=== PATIENT | male | born 1945 | race Caucasian/White ===

== ENCOUNTER 2020-02-28 08:25 | Outpatient (CLI) | payer MEDICARE, OTHER, SELFPAY ==
[2020-02-28 08:43] LABS: Basophils Percent Auto 0.6 % (0.2-1.2); Eosinophils Absolute Auto 0.4 K/mm3 (0-0.3); Eosinophils Percent Auto 6.2 % (0-4.4); Hematocrit 41.3 % (42.0-52.0); Hemoglobin 13.7 g/dL (14.0-18.0); Immature Granulocyte Absolute 0.01 K/mm3 (0.00-0.031); Immature Granulocyte Percent A 0.2 % (0-0.5); Lymphocytes Absolute Auto 1.12 K/mm3 (0.9-3.2); Lymphocytes Percent Auto 18.2 % (18.3-44.2); Mean Corpuscular HGB Conc 33.2 g/dl (32-36); Mean Corpuscular Hemoglobin 31.6 pg (26-34); Mean Corpuscular Volume 95.4 fl (80-100); Mean Platelet Volume 9.7 fl (7.4-10.4); Monocytes Absolute Auto 0.6 K/mm3 (0.1-0.6); Monocytes Percent Auto 10.4 % (2.6-8.5); Neutrophils Percent Auto 64.4 % (45.5-73.1); Platelet Count Result 187 k/mm3 (150-375); Red Blood Count 4.33 M/mm3 (4.6-6.20); White Blood Count 6.2 K/mm3 (4.5-10.0)
[2020-02-28 08:52] LABS: Alanine Aminotransferase 20 U/L (4-50); Albumin Level 4.1 g/dL (3.5-5.1); Alkaline Phosphatase 53 U/L (38-126); Aspartate Amino Transferase 24 U/L (17-59); Bilirubin,Total 0.5 mg/dL (0.2-1.3); Blood Urea Nitrogen 21 mg/dL (9-20); Calcium 8.9 mg/dL (8.4-10.2); Carbon Dioxide 29 mmol/L (22-30); Chloride 104 mmol/L (98-107); Cholesterol 96 mg/dL (0-200); Estimated Glomerular Filt Rate 54; Glucose 140 mg/dL (75-110); HDL Direct 33 mg/dL; Potassium 4.6 mmol/L (3.4-5.0); Sodium 139 mmol/L (137-145); Triglycerides 66 mg/dL (<150)
[2020-02-28 08:58] LABS: Hemoglobin A1C 6.6 % (<5.7)
[2020-02-28 09:03] LABS: LDL Cholesterol Direct 50 mg/dL
== END 2020-02-28 08:26 | disposition home or self-care (01) ==
PROVIDERS: PCP Internal Medicine; Visit Provider Internal Medicine
DX: E11.9 Type 2 diabetes mellitus without complications (principal); E03.9 Hypothyroidism, unspecified
CPT/HCPCS: 36415; 80053; 80061; 83036; 84443; 85025

== ENCOUNTER 2020-09-17 09:33 | Outpatient (CLI) | payer MEDICARE, OTHER, SELFPAY ==
[2020-09-17 10:17] LABS: Basophils Percent Auto 0.5 % (0.2-1.2); Eosinophils Absolute Auto 0.2 K/mm3 (0-0.3); Eosinophils Percent Auto 3.4 % (0-4.4); Hematocrit 38.2 % (42.0-52.0); Hemoglobin 12.7 g/dL (14.0-18.0); Immature Granulocyte Absolute 0.04 K/mm3 (0.00-0.031); Immature Granulocyte Percent A 0.7 % (0-0.5); Lymphocytes Absolute Auto 1.18 K/mm3 (0.9-3.2); Lymphocytes Percent Auto 20.3 % (18.3-44.2); Mean Corpuscular HGB Conc 33.2 g/dl (32-36); Mean Corpuscular Hemoglobin 31.3 pg (26-34); Mean Corpuscular Volume 94.1 fl (80-100); Mean Platelet Volume 9.4 fl (7.4-10.4); Monocytes Percent Auto 17.4 % (2.6-8.5); Neutrophils Absolute Auto 3.4 K/mm3 (1.3-6.7); Neutrophils Percent Auto 57.7 % (45.5-73.1); Platelet Count Result 234 k/mm3 (150-375); Red Blood Count 4.06 M/mm3 (4.6-6.20); Red Cell Distribution Width 12.5 % (11.5-14.5); White Blood Count 5.8 K/mm3 (4.5-10.0)
[2020-09-17 10:33] LABS: Anion Gap 0 mmol/L (8-16); Blood Urea Nitrogen 19 mg/dL (9-20); Calcium 8.7 mg/dL (8.4-10.2); Carbon Dioxide 33 mmol/L (22-30); Chloride 106 mmol/L (98-107); Cholesterol 86 mg/dL (0-200); Estimated Glomerular Filt Rate 59; Glucose 123 mg/dL (75-110); HDL Direct 26 mg/dL; Potassium 4.8 mmol/L (3.4-5.0); Sodium 139 mmol/L (137-145); Triglycerides 78 mg/dL (<150)
[2020-09-17 10:44] LABS: LDL Cholesterol Direct 40 mg/dL
[2020-09-17 10:48] LABS: Creatinine Urine 216.6 mg/dL
[2020-09-17 10:49] LABS: Hemoglobin A1C 6.4 % (<5.7)
[2020-09-17 10:51] LABS: MALB Creatinine Ratio 2.8 mg/g (0-30); Microalbumin Urine Random 6.1 mg/L (0-16.7)
== END 2020-09-17 09:34 | disposition home or self-care (01) ==
PROVIDERS: PCP Internal Medicine; Visit Provider Internal Medicine
DX: E11.9 Type 2 diabetes mellitus without complications (principal); I25.10 Atherosclerotic heart disease of native coronary artery without angina pectoris
CPT/HCPCS: 36415; 80048; 80061; 82043; 83036; 85025

== ENCOUNTER 2020-09-20 11:27 | Outpatient (CLI) | payer MEDICARE, OTHER, SELFPAY ==
[2020-09-20 11:42] LABS: Basophils Percent Auto 0.6 % (0.2-1.2); Eosinophils Absolute Auto 0.2 K/mm3 (0-0.3); Eosinophils Percent Auto 4.6 % (0-4.4); Hematocrit 40.1 % (42.0-52.0); Hemoglobin 13.2 g/dL (14.0-18.0); Immature Granulocyte Absolute 0.01 K/mm3 (0.00-0.031); Immature Granulocyte Percent A 0.2 % (0-0.5); Immature Reticulocyte Fraction 17.6 % (3.0-15.9); Lymphocytes Absolute Auto 1.35 K/mm3 (0.9-3.2); Mean Corpuscular HGB Conc 32.9 g/dl (32-36); Mean Corpuscular Volume 97.1 fl (80-100); Mean Platelet Volume 9.5 fl (7.4-10.4); Monocytes Absolute Auto 0.7 K/mm3 (0.1-0.6); Monocytes Percent Auto 13.4 % (2.6-8.5); Neutrophils Absolute Auto 2.7 K/mm3 (1.3-6.7); Neutrophils Percent Auto 54.2 % (45.5-73.1); Platelet Count Result 177 k/mm3 (150-375); Red Blood Count 4.13 M/mm3 (4.6-6.20); Reticulocyte Hemoglobin Conten 37.1 pg (28.2-35.7); Reticulocyte Percent 1.33 % (0.7-4.3); Reticulocytes Absolute 0.05 B/L (32.2-175.7)
[2020-09-20 12:23] LABS: Thyroid Stimulating Hormone 0.595 uIU/mL (0.465-4.680)
[2020-09-20 12:58] LABS: Folic Acid 12.7 ng/mL (2.76->20)
== END 2020-09-20 11:28 | disposition home or self-care (01) ==
LOC: ANHLAB 11:29
PROVIDERS: Family Provider Internal Medicine; PCP Internal Medicine; Visit Provider Internal Medicine
DX: D64.9 Anemia, unspecified (principal); E03.9 Hypothyroidism, unspecified
CPT/HCPCS: 36415; 82607; 82728; 82746; 84443; 85025; 85046

== ENCOUNTER 2021-03-17 08:25 | Outpatient (CLI) | payer MEDICARE, OTHER, SELFPAY ==
[2021-03-17 12:06] LABS: Hemoglobin A1C 6.5 % (<5.7)
== END 2021-03-17 08:26 | disposition home or self-care (01) ==
LOC: ANHLAB 08:27
PROVIDERS: PCP Internal Medicine; Visit Provider Internal Medicine
DX: E11.9 Type 2 diabetes mellitus without complications (principal)
CPT/HCPCS: 36415; 83036

== ENCOUNTER 2021-04-02 15:52 | Outpatient (CLI) | payer MEDICARE, OTHER, SELFPAY ==
[2021-04-02 16:14] LABS: Basophils Percent Auto 0.4 % (0.2-1.2); Eosinophils Absolute Auto 0.4 K/mm3 (0-0.3); Eosinophils Percent Auto 5.6 % (0-4.4); Hemoglobin 13.6 g/dL (14.0-18.0); Immature Granulocyte Absolute 0.01 K/mm3 (0.00-0.031); Immature Granulocyte Percent A 0.1 % (0-0.5); Lymphocytes Absolute Auto 1.69 K/mm3 (0.9-3.2); Lymphocytes Percent Auto 22.7 % (18.3-44.2); Mean Corpuscular HGB Conc 33.2 g/dl (32-36); Mean Corpuscular Volume 93.4 fl (80-100); Mean Platelet Volume 9.5 fl (7.4-10.4); Monocytes Absolute Auto 0.9 K/mm3 (0.1-0.6); Monocytes Percent Auto 12.5 % (2.6-8.5); Neutrophils Absolute Auto 4.4 K/mm3 (1.3-6.7); Neutrophils Percent Auto 58.7 % (45.5-73.1); Platelet Count Result 187 k/mm3 (150-375); Red Blood Count 4.39 M/mm3 (4.6-6.20); Red Cell Distribution Width 13.2 % (11.5-14.5); White Blood Count 7.5 K/mm3 (4.5-10.0)
[2021-04-02 16:23] LABS: Anion Gap 7 mmol/L (8-16); Blood Urea Nitrogen 24 mg/dL (9-20); Calcium 9.3 mg/dL (8.4-10.2); Carbon Dioxide 28 mmol/L (22-30); Chloride 106 mmol/L (98-107); Estimated Glomerular Filt Rate 54; Glucose 81 mg/dL (65-110); Potassium 4.7 mmol/L (3.4-5.0); Sodium 141 mmol/L (137-145)
[2021-04-02 16:55] LABS: Prostate Specific Antigen 2.4 ng/mL (< OR = 4.0)
== END 2021-04-02 15:53 | disposition home or self-care (01) ==
LOC: ANHLAB 15:56
PROVIDERS: PCP Internal Medicine; Visit Provider Internal Medicine
DX: D64.9 Anemia, unspecified (principal); Z12.5 Encounter for screening for malignant neoplasm of prostate; E03.9 Hypothyroidism, unspecified
CPT/HCPCS: 36415; 80048; 84153; 84443; 85025; G0103

== ENCOUNTER → 2021-04-22 08:23 | Outpatient (CLI) | payer MEDICARE, OTHER, SELFPAY ==
[2021-04-22 19:41] LABS: SARS-CoV-2 RNA PCR Negative
== END ==
PROVIDERS: PCP Internal Medicine; Visit Provider Clinical Nurse Specialist
DX: R05 Cough (principal); Z20.822 Contact with and (suspected) exposure to COVID-19
CPT/HCPCS: C9803; U0003; U0005

== ENCOUNTER 2021-09-19 08:18 | Outpatient (CLI) | payer MEDICARE, OTHER, SELFPAY ==
[2021-09-19 09:22] LABS: Basophils Absolute Auto 0.1 K/mm3 (0.0-0.1); Basophils Percent Auto 0.7 % (0.2-1.2); Eosinophils Absolute Auto 0.4 K/mm3 (0-0.3); Eosinophils Percent Auto 5.2 % (0-4.4); Hematocrit 42.3 % (42.0-52.0); Immature Granulocyte Absolute 0.01 K/mm3 (0.00-0.031); Immature Granulocyte Percent A 0.1 % (0-0.5); Lymphocytes Absolute Auto 1.34 K/mm3 (0.9-3.2); Lymphocytes Percent Auto 18.3 % (18.3-44.2); Mean Corpuscular HGB Conc 33.1 g/dl (32-36); Mean Corpuscular Hemoglobin 31.7 pg (26-34); Mean Corpuscular Volume 95.9 fl (80-100); Mean Platelet Volume 9.8 fl (7.4-10.4); Monocytes Absolute Auto 0.8 K/mm3 (0.1-0.6); Monocytes Percent Auto 10.9 % (2.6-8.5); Neutrophils Absolute Auto 4.7 K/mm3 (1.3-6.7); Neutrophils Percent Auto 64.8 % (45.5-73.1); Platelet Count Result 179 k/mm3 (150-375); Red Blood Count 4.41 M/mm3 (4.6-6.20); Red Cell Distribution Width 12.9 % (11.5-14.5); White Blood Count 7.3 K/mm3 (4.5-10.0)
[2021-09-19 09:34] LABS: Alanine Aminotransferase 16 U/L (4-50); Alkaline Phosphatase 52 U/L (38-126); Anion Gap 7 mmol/L (8-16); Aspartate Amino Transferase 23 U/L (17-59); Bilirubin,Total 0.6 mg/dL (0.2-1.3); Blood Urea Nitrogen 25 mg/dL (9-20); Carbon Dioxide 28 mmol/L (22-30); Chloride 106 mmol/L (98-107); Cholesterol 105 mg/dL (0-200); Estimated Glomerular Filt Rate 49; Glucose 112 mg/dL (65-110); HDL Direct 37 mg/dL; Potassium 4.9 mmol/L (3.4-5.0); Sodium 141 mmol/L (137-145); Triglycerides 63 mg/dL (<150)
[2021-09-19 09:39] LABS: Hemoglobin A1C 6.6 % (<5.7)
[2021-09-19 09:45] LABS: LDL Cholesterol Direct 51 mg/dL
== END 2021-09-19 08:19 | disposition home or self-care (01) ==
PROVIDERS: PCP Internal Medicine; Visit Provider Internal Medicine
DX: I10 Essential (primary) hypertension (principal); E03.9 Hypothyroidism, unspecified; E78.5 Hyperlipidemia, unspecified; E11.9 Type 2 diabetes mellitus without complications
CPT/HCPCS: 36415; 80053; 80061; 83036; 84443; 85025

== ENCOUNTER 2021-12-16 08:15 | Outpatient (CLI) | payer MEDICARE, OTHER, SELFPAY ==
[2021-12-16 08:39] LABS: Appearance Urine Clear (Clear); Bilirubin Urine Negative (Negative); Color Urine Yellow (Yellow); Glucose Urine UA Negative (Negative); Ketones Urine Negative (Negative); Leukocyte Esterase Ur Negative LEU/UL (NEGATIVE); Nitrate Urine Negative (Negative); Protein Urine Negative (Negative); Urobilinogen Urine 0.2 mg/dL (<2.0)
[2021-12-16 08:44] LABS: Hemoglobin A1C 6.4 % (<5.7)
[2021-12-16 08:45] LABS: Add Urine Microscopic? YES; Blood Urine Trace-Intact (Negative)
[2021-12-16 08:51] LABS: Mucus Urine Rare /lpf; Squamous Epithelial Cell Urine Rare /hpf (Few); WBC Urine 0-3 /hpf (0-3)
[2021-12-16 08:52] LABS: Anion Gap 2 mmol/L (8-16); Blood Urea Nitrogen 23 mg/dL (9-20); Calcium 8.9 mg/dL (8.4-10.2); Carbon Dioxide 31 mmol/L (22-30); Chloride 106 mmol/L (98-107); Estimated Glomerular Filt Rate 54; Glucose 130 mg/dL (65-110); Potassium 4.7 mmol/L (3.4-5.0); Sodium 139 mmol/L (137-145)
== END 2021-12-16 08:16 | disposition home or self-care (01) ==
PROVIDERS: PCP Internal Medicine; Visit Provider Internal Medicine
DX: E11.22 Type 2 diabetes mellitus with diabetic chronic kidney disease (principal)
CPT/HCPCS: 36415; 80048; 81001; 83036

== ENCOUNTER 2021-12-31 09:38 | Outpatient (CLI) | payer MEDICARE, OTHER, SELFPAY ==
--- NOTE | ~2021-12-31 | CT_ITS ---
EXAMINATION: CT abdomen pelvis wo/w con DATE: 12/31/2021 11:04 INDICATION: Microscopic hematuria TECHNIQUE: Computed tomography (CT) of the abdomen and pelvis was performed without intravenous contr ast. CT of the abdomen and pelvis was then performed with a total of 130 mL Omnipaque 350 intravenous contrast using a double-bolus technique for simultaneous opacification of the renal parenchyma and r enal collecting system. The dose-length product (DLP) was 1369.67 mGy-cm. Automated exposure control and iterative reconstruction technique were employed. COMPARISON: None FINDINGS: Minimal dependent atelectasis is present in the lung bases. The heart size is normal. Suben docardial fat deposition in the left ventricle and interventricular septum is consistent with prior m yocardial infarction. Cysts of the liver measure up to 1.9 cm. The spleen, pancreas, gallbladder, and adrenal glands are normal. Cysts of the kidneys measure up to 7 mm on the right. No suspicious renal or urothelial lesion is identified. No stones are identified in the kidneys, ureters, or bladder. Th ere is no hydronephrosis or hydroureter. There is calcified atherosclerosis of the aorta and many of the other arteries. No pathologically enlarged abdominal or pelvic lymph nodes are identified. There is no free intraperitoneal gas or evidence of bowel obstruction. There is severe lumbar spondylosis a t L5-S1. A moderate volume of colonic stool is present. IMPRESSION: 1. No CT correlate for the patient's symptoms. 2. Findings consistent with prior myocardial infarction. Reviewed, dictated and finalized at location A.
== END 2021-12-31 09:39 | disposition home or self-care (01) ==
PROVIDERS: PCP Internal Medicine; Visit Provider Internal Medicine
DX: R31.21 Asymptomatic microscopic hematuria (principal)
CPT/HCPCS: 74178; Q9967

== ENCOUNTER 2022-06-16 08:25 | Outpatient (CLI) | payer MEDICARE, OTHER, SELFPAY ==
[2022-06-16 09:25] LABS: Alanine Aminotransferase 21 U/L (6-50); Albumin Level 4.2 g/dL (3.5-5.1); Alkaline Phosphatase 45 U/L (38-126); Anion Gap 11 mmol/L (8-16); Aspartate Amino Transferase 22 U/L (17-59); Bilirubin,Total 0.4 mg/dL (0.2-1.3); Blood Urea Nitrogen 23 mg/dL (9-20); Carbon Dioxide 29 mmol/L (22-30); Chloride 102 mmol/L (98-107); Cholesterol 103 mg/dL (0-200); Estimated Glomerular Filt Rate 45; Glucose 144 mg/dL (65-110); HDL Direct 37 mg/dL; Potassium 4.4 mmol/L (3.4-5.0); Sodium 142 mmol/L (137-145); Triglycerides 65 mg/dL (<150)
[2022-06-16 09:36] LABS: LDL Cholesterol Direct 51 mg/dL
[2022-06-16 11:24] LABS: Hemoglobin A1C 6.9 % (<5.7)
== END 2022-06-16 08:26 | disposition home or self-care (01) ==
LOC: ANHLAB 08:28
PROVIDERS: PCP Internal Medicine; Visit Provider Internal Medicine
DX: E11.9 Type 2 diabetes mellitus without complications (principal); E03.9 Hypothyroidism, unspecified; I25.10 Atherosclerotic heart disease of native coronary artery without angina pectoris
CPT/HCPCS: 36415; 80053; 80061; 83036; 84443

== ENCOUNTER 2022-09-22 08:16 | Outpatient (CLI) | payer MEDICARE, OTHER, SELFPAY ==
[2022-09-22 09:54] LABS: Hematocrit 41.7 % (42.0-52.0); Hemoglobin 13.6 g/dL (14.0-18.0); Mean Corpuscular HGB Conc 32.6 g/dl (32-36); Mean Corpuscular Hemoglobin 30.9 pg (26-34); Mean Corpuscular Volume 94.8 fl (80-100); Mean Platelet Volume 9.5 fl (7.4-10.4); Platelet Count Result 189 k/mm3 (150-375); Red Cell Distribution Width 12.9 % (11.5-14.5); White Blood Count 6.1 K/mm3 (4.5-10.0)
[2022-09-22 09:55] LABS: Appearance Urine Clear (Clear); Bilirubin Urine 1+ (Negative); Blood Urine Negative (Negative); Color Urine Yellow (Yellow); Glucose Urine UA Negative (Negative); Ketones Urine Negative (Negative); Leukocyte Esterase Ur Negative LEU/UL (NEGATIVE); Nitrate Urine Negative (Negative); Protein Urine Negative (Negative); Specific Grav Ur 1.025 (1.001-1.035); Urobilinogen Urine 0.2 mg/dL (<2.0); pH Urine 6.5 (5.0-9.0)
[2022-09-22 10:02] LABS: Mucus Urine Rare /lpf; Squamous Epithelial Cell Urine Rare /hpf (Few); WBC Urine 0-3 /hpf (0-3)
[2022-09-22 10:03] LABS: Hemoglobin A1C 6.5 % (<5.7)
[2022-09-22 10:08] LABS: Anion Gap 7 mmol/L (8-16); Blood Urea Nitrogen 22 mg/dL (9-20); Calcium 8.8 mg/dL (8.4-10.2); Carbon Dioxide 29 mmol/L (22-30); Chloride 104 mmol/L (98-107); Estimated Glomerular Filt Rate 53; Glucose 134 mg/dL (65-110); Potassium 4.8 mmol/L (3.4-5.0); Sodium 140 mmol/L (137-145)
[2022-09-22 10:11] LABS: Add Urine Microscopic? YES
[2022-09-22 12:55] LABS: Hepatitis C Virus Antibody Negative (Negative)
[2022-09-25 20:12] LABS: Albumin 3.9 g/dL (3.8-4.8); Alpha 1 Globulin 0.3 g/dL (0.2-0.3); Alpha 2 Globulin 0.7 g/dL (0.5-0.9); Beta 1 Globulin 0.4 g/dL (0.4-0.6); Gamma Globulin 0.9 g/dL (0.8-1.7); Protein, Total 6.3 g/dL (6.1-8.1)
[2022-09-28 20:18] LABS: Creatinine, Random Urine 168 mg/dL (20-320); Total Protein/Creatinine Ratio 77 mg/g creat (25-148)
== END 2022-09-22 08:17 | disposition home or self-care (01) ==
PROVIDERS: PCP Internal Medicine; Visit Provider Internal Medicine
DX: I25.10 Atherosclerotic heart disease of native coronary artery without angina pectoris (principal); E11.22 Type 2 diabetes mellitus with diabetic chronic kidney disease; N18.30 Chronic kidney disease, stage 3 unspecified; R50.9 Fever, unspecified; R31.21 Asymptomatic microscopic hematuria
CPT/HCPCS: 36415; 80048; 81001; 82570; 83036; 84155; 84156; 84165; 84166; 85027; 86803

== ENCOUNTER 2022-10-28 11:17 | Outpatient (CLI) | payer MEDICARE, OTHER, SELFPAY ==
[2022-10-28 11:37] LABS: Basophils Percent Auto 0.5 % (0.2-1.2); Eosinophils Absolute Auto 0.3 K/mm3 (0-0.3); Eosinophils Percent Auto 4.7 % (0-4.4); Hematocrit 42.7 % (42.0-52.0); Hemoglobin 14.1 g/dL (14.0-18.0); Immature Granulocyte Absolute 0.01 K/mm3 (0.00-0.031); Immature Granulocyte Percent A 0.2 % (0-0.5); Lymphocytes Absolute Auto 1.28 K/mm3 (0.9-3.2); Lymphocytes Percent Auto 19.5 % (18.3-44.2); Mean Corpuscular Hemoglobin 31.5 pg (26-34); Mean Corpuscular Volume 95.3 fl (80-100); Mean Platelet Volume 9.5 fl (7.4-10.4); Monocytes Absolute Auto 0.8 K/mm3 (0.1-0.6); Monocytes Percent Auto 12.2 % (2.6-8.5); Neutrophils Absolute Auto 4.1 K/mm3 (1.3-6.7); Neutrophils Percent Auto 62.9 % (45.5-73.1); Platelet Count Result 182 k/mm3 (150-375); Red Blood Count 4.48 M/mm3 (4.6-6.20); Red Cell Distribution Width 12.8 % (11.5-14.5); White Blood Count 6.6 K/mm3 (4.5-10.0)
[2022-10-28 16:33] LABS: Alanine Aminotransferase 21 U/L (6-50); Albumin Level 4.5 g/dL (3.5-5.1); Alkaline Phosphatase 54 U/L (38-126); Anion Gap 4 mmol/L (8-16); Aspartate Amino Transferase 27 U/L (17-59); Bilirubin,Total 0.6 mg/dL (0.2-1.3); Blood Urea Nitrogen 20 mg/dL (9-20); Calcium 9.5 mg/dL (8.4-10.2); Carbon Dioxide 31 mmol/L (22-30); Chloride 100 mmol/L (98-107); Estimated Glomerular Filt Rate 53; Glucose 104 mg/dL (65-110); Sodium 135 mmol/L (137-145)
[2022-10-28 17:15] LABS: Immunoglobulin A 145 mg/dL (70-400); Immunoglobulin G 918 mg/dL (700-1600); Immunoglobulin M 75 mg/dL (40-230)
[2022-10-30 19:59] LABS: Albumin 4.1 g/dL (3.8-4.8); Alpha 1 Globulin 0.3 g/dL (0.2-0.3); Alpha 2 Globulin 0.7 g/dL (0.5-0.9); Beta 1 Globulin 0.4 g/dL (0.4-0.6); Gamma Globulin 0.9 g/dL (0.8-1.7); Protein, Total 6.7 g/dL (6.1-8.1)
[2022-10-30 20:05] LABS: Kappa\\Lambda Light Chains 1.26 (0.26-1.65); Lambda Light Chain 23.6 mg/L (5.7-26.3)
== END 2022-10-28 11:18 | disposition home or self-care (01) ==
LOC: ANHLAB 11:20
PROVIDERS: PCP Internal Medicine; Visit Provider Internal Medicine Hematology & Oncology
DX: D72.9 Disorder of white blood cells, unspecified (principal)
CPT/HCPCS: 36415; 80053; 82784; 83883; 84155; 84165; 85025

== ENCOUNTER 2022-11-05 11:13 | Outpatient (CLI) | payer MEDICARE, OTHER, SELFPAY ==
--- NOTE | ~2022-11-05 | XR_ITS ---
EXAMINATION: BONE SURVEY/METASTATIC SURVEY DATE: 11/05/2022 INDICATION: Plasma cell disorder TECHNIQUE: A skeletal survey was performed including AP views of the chest, abdomen and pelvis; AP an d lateral/lateral swimmers views of the cervical, thoracic and lumbar spine; lateral view of the skul l, and AP and lateral views of the appendicular skeleton excluding the hands and feet. COMPARISON: CT abdomen pelvis dated 12/31/2021 FINDINGS: There are a few lucent calvarial lesions which appear to been present on head CT dated 12/31/2008) cons istent with benign arachnoid granulations. No other suspicious lytic or blastic bone lesions in the a xial or appendicular skeleton. A few heterotopic ossicles along the lateral epicondyle of the distal right humerus likely sequela of trauma. Mild thoracic dextroscoliosis with mild to moderate spondylos is. Additional moderate cervical spondylosis with severe facet osteoarthritis. Mild lumbar and modera te lumbosacral spondylosis. Likely vasectomy clips at the scrotum. Lungs are clear with no focal airs pace opacities, pulmonary edema, pleural effusion or pneumothorax. Cardiomediastinal silhouette is no rmal. IMPRESSION: 1. A few small chronic lucent lesions of the calvarium which can be seen on head CT dating back to 09 likely representing arachnoid granulations. No other suspicious lytic or blastic bone lesions. Reviewed, dictated and finalized at location A. REPAIR TECHNICIAN IMPRESSION: 1. A few small chronic lucent lesions of the calvarium which can be seen on hea d CT dating back to 2008 likely representing arachnoid granulations. No other s uspicious lytic or blastic bone lesions.
== END 2022-11-05 11:14 | disposition home or self-care (01) ==
PROVIDERS: PCP Internal Medicine; Visit Provider Internal Medicine Hematology & Oncology
DX: D72.9 Disorder of white blood cells, unspecified (principal)
CPT/HCPCS: 77075

== ENCOUNTER 2023-03-09 07:32 | Outpatient (CLI) | payer MEDICARE, OTHER, SELFPAY ==
[2023-03-09 08:46] LABS: Basophils Percent Auto 0.6 % (0.2-1.2); Eosinophils Absolute Auto 0.4 K/mm3 (0-0.3); Eosinophils Percent Auto 5.7 % (0-4.4); Hematocrit 41.9 % (42.0-52.0); Hemoglobin 13.5 g/dL (14.0-18.0); Immature Granulocyte Absolute 0.02 K/mm3 (0.00-0.031); Immature Granulocyte Percent A 0.3 % (0-0.5); Lymphocytes Percent Auto 20.7 % (18.3-44.2); Mean Corpuscular HGB Conc 32.2 g/dl (32-36); Mean Corpuscular Hemoglobin 31.3 pg (26-34); Mean Corpuscular Volume 97.2 fl (80-100); Mean Platelet Volume 9.8 fl (7.4-10.4); Monocytes Absolute Auto 0.8 K/mm3 (0.1-0.6); Monocytes Percent Auto 13.4 % (2.6-8.5); Neutrophils Absolute Auto 3.7 K/mm3 (1.3-6.7); Neutrophils Percent Auto 59.3 % (45.5-73.1); Platelet Count Result 177 k/mm3 (150-375); Red Blood Count 4.31 M/mm3 (4.6-6.20); White Blood Count 6.3 K/mm3 (4.5-10.0)
[2023-03-09 08:55] LABS: Hemoglobin A1C 6.5 % (<5.7)
[2023-03-09 09:02] LABS: Alanine Aminotransferase 19 U/L (6-50); Albumin Level 4.1 g/dL (3.5-5.1); Alkaline Phosphatase 54 U/L (38-126); Anion Gap 4 mmol/L (8-16); Aspartate Amino Transferase 27 U/L (17-59); Bilirubin,Total 0.8 mg/dL (0.2-1.3); Blood Urea Nitrogen 28 mg/dL (9-20); Calcium 8.9 mg/dL (8.4-10.2); Carbon Dioxide 30 mmol/L (22-30); Chloride 104 mmol/L (98-107); Cholesterol 116 mg/dL (0-200); Estimated Glomerular Filt Rate 49; Glucose 125 mg/dL (65-110); HDL Direct 34 mg/dL; Potassium 4.9 mmol/L (3.4-5.0); Sodium 138 mmol/L (137-145); Triglycerides 92 mg/dL (<150)
[2023-03-09 09:13] LABS: LDL Cholesterol Direct 59 mg/dL
[2023-03-09 09:39] LABS: Creatinine Urine 165.1 mg/dL
[2023-03-09 09:44] LABS: MALB Creatinine Ratio 4.5 mg/g (0-30); Microalbumin Urine Random 7.5 mg/L (0-16.7)
== END 2023-03-09 07:33 | disposition home or self-care (01) ==
LOC: ANHLAB 07:34
PROVIDERS: PCP Internal Medicine; Visit Provider Internal Medicine
DX: D64.9 Anemia, unspecified (principal); E03.9 Hypothyroidism, unspecified; E11.22 Type 2 diabetes mellitus with diabetic chronic kidney disease; I10 Essential (primary) hypertension; I25.10 Atherosclerotic heart disease of native coronary artery without angina pectoris; R50.9 Fever, unspecified; E11.9 Type 2 diabetes mellitus without complications
CPT/HCPCS: 36415; 80053; 80061; 82043; 83036; 84443; 85025

== ENCOUNTER 2023-09-22 14:53 | Outpatient (CLI) | payer MEDICARE, OTHER, SELFPAY ==
[2023-09-22 15:13] LABS: Basophils Absolute Auto 0.1 K/mm3 (0.0-0.1); Basophils Percent Auto 0.7 % (0.2-1.2); Eosinophils Absolute Auto 0.5 K/mm3 (0-0.3); Hemoglobin 13.9 g/dL (14.0-18.0); Immature Granulocyte Absolute 0.01 K/mm3 (0.00-0.031); Immature Granulocyte Percent A 0.1 % (0-0.5); Lymphocytes Absolute Auto 1.94 K/mm3 (0.9-3.2); Lymphocytes Percent Auto 25.7 % (18.3-44.2); Mean Corpuscular HGB Conc 33.1 g/dl (32-36); Mean Corpuscular Volume 96.6 fl (80-100); Mean Platelet Volume 9.5 fl (7.4-10.4); Monocytes Absolute Auto 1.1 K/mm3 (0.1-0.6); Monocytes Percent Auto 14.8 % (2.6-8.5); Neutrophils Percent Auto 52.7 % (45.5-73.1); Platelet Count Result 195 k/mm3 (150-375); Red Blood Count 4.35 M/mm3 (4.6-6.20); Red Cell Distribution Width 12.9 % (11.5-14.5); White Blood Count 7.6 K/mm3 (4.5-10.0)
[2023-09-22 16:53] LABS: Alanine Aminotransferase 18 U/L (6-50); Albumin Level 4.4 g/dL (3.5-5.1); Alkaline Phosphatase 56 U/L (38-126); Anion Gap 8 mmol/L (8-16); Aspartate Amino Transferase 25 U/L (17-59); Bilirubin,Total 0.5 mg/dL (0.2-1.3); Blood Urea Nitrogen 20 mg/dL (9-20); Calcium 9.2 mg/dL (8.4-10.2); Carbon Dioxide 28 mmol/L (22-30); Chloride 106 mmol/L (98-107); Estimated Glomerular Filt Rate 53; Glucose 77 mg/dL (65-110); Potassium 4.6 mmol/L (3.4-5.0); Sodium 142 mmol/L (137-145)
[2023-09-22 17:09] LABS: Immunoglobulin A 154 mg/dL (70-400); Immunoglobulin G 995 mg/dL (700-1600); Immunoglobulin M 73 mg/dL (40-230)
[2023-09-24 20:29] LABS: Kappa\\Lambda Light Chains 1.37 (0.26-1.65); Lambda Light Chain 25.3 mg/L (5.7-26.3)
[2023-09-25 08:49] LABS: Albumin 4.1 g/dL (3.8-4.8); Alpha 1 Globulin 0.3 g/dL (0.2-0.3); Alpha 2 Globulin 0.7 g/dL (0.5-0.9); Beta 1 Globulin 0.4 g/dL (0.4-0.6); Gamma Globulin 0.9 g/dL (0.8-1.7); Protein, Total 6.6 g/dL (6.1-8.1)
== END 2023-09-22 14:54 | disposition home or self-care (01) ==
LOC: ANHLAB 14:56
PROVIDERS: PCP Internal Medicine; Visit Provider Internal Medicine Hematology & Oncology
DX: D72.9 Disorder of white blood cells, unspecified (principal)
CPT/HCPCS: 36415; 80053; 82784; 83883; 84155; 84165; 85025

== ENCOUNTER 2024-01-10 11:01 | Outpatient (CLI) | payer MEDICARE, OTHER, SELFPAY ==
--- NOTE | ~2024-01-10 | XR_ITS ---
AP view of the pelvis and AP and lateral views of the right hip Clinical history: Pain Findings: No acute fracture or dislocation is seen. Osseous alignment is anatomic. Bilateral hip and SI joint spaces are preserved. Soft tissues are unremarkable. Impression: No significant abnormality is seen. Reviewed, dictated and finalized at location . Impression: No significant abnormality is seen.
== END 2024-01-10 11:02 ==
PROVIDERS: PCP Internal Medicine; Visit Provider Internal Medicine
DX: M25.551 Pain in right hip (principal)
CPT/HCPCS: 73502

== ENCOUNTER 2024-03-15 15:09 | Outpatient (CLI) | payer MEDICARE, OTHER, SELFPAY ==
[2024-03-15 15:38] LABS: Basophils Absolute Auto 0.1 K/mm3 (0.0-0.1); Basophils Percent Auto 0.7 % (0.2-1.2); Eosinophils Absolute Auto 0.3 K/mm3 (0-0.3); Eosinophils Percent Auto 4.8 % (0-4.4); Hemoglobin 13.5 g/dL (14.0-18.0); Immature Granulocyte Absolute 0.02 K/mm3 (0.00-0.031); Immature Granulocyte Percent A 0.3 % (0-0.5); Lymphocytes Absolute Auto 1.44 K/mm3 (0.9-3.2); Lymphocytes Percent Auto 20.5 % (18.3-44.2); Mean Corpuscular HGB Conc 32.1 g/dl (32-36); Mean Corpuscular Hemoglobin 31.1 pg (26-34); Mean Corpuscular Volume 96.8 fl (80-100); Mean Platelet Volume 9.5 fl (7.4-10.4); Monocytes Absolute Auto 1.1 K/mm3 (0.1-0.6); Monocytes Percent Auto 15.2 % (2.6-8.5); Neutrophils Absolute Auto 4.1 K/mm3 (1.3-6.7); Neutrophils Percent Auto 58.5 % (45.5-73.1); Platelet Count Result 192 k/mm3 (150-375); Red Blood Count 4.34 M/mm3 (4.6-6.20)
[2024-03-15 16:59] LABS: Alanine Aminotransferase 19 U/L (6-50); Albumin Level 4.3 g/dL (3.5-5.1); Alkaline Phosphatase 51 U/L (38-126); Anion Gap 9 mmol/L (4-12); Aspartate Amino Transferase 28 U/L (17-59); Bilirubin,Total 0.6 mg/dL (0.2-1.3); Blood Urea Nitrogen 24 mg/dL (9-20); Calcium 9.1 mg/dL (8.4-10.2); Carbon Dioxide 29 mmol/L (22-30); Chloride 100 mmol/L (98-107); Estimated Glomerular Filt Rate 49; Glucose 77 mg/dL (65-110); Potassium 4.7 mmol/L (3.4-5.0); Sodium 138 mmol/L (137-145)
[2024-03-15 18:06] LABS: Folic Acid 11.2 ng/mL (2.76->20); Vitamin B12 > 1000.0 pg/mL (239-931)
[2024-03-15 18:08] LABS: Hemoglobin A1C 6.7 % (<5.7)
== END 2024-03-15 15:10 | disposition home or self-care (01) ==
PROVIDERS: PCP Internal Medicine; Visit Provider Internal Medicine
DX: E11.22 Type 2 diabetes mellitus with diabetic chronic kidney disease (principal); D47.2 Monoclonal gammopathy; E03.9 Hypothyroidism, unspecified; I25.10 Atherosclerotic heart disease of native coronary artery without angina pectoris; N18.31 Chronic kidney disease, stage 3a; D64.9 Anemia, unspecified
CPT/HCPCS: 36415; 80053; 82607; 82728; 82746; 83036; 84443; 85025

== ENCOUNTER 2024-04-03 09:14 | Outpatient (CLI) | payer MEDICARE, OTHER, SELFPAY ==
--- NOTE | ~2024-04-03 | US_ITS ---
US renal BI Ordering provider: Hernan Posey DO History: . N18.30 - Chronic kidney disease, stage 3 unspecified . Comparison: None. Technique: Ultrasound bilateral kidneys. Findings: RIGHT KIDNEY: Measures 9.7x 4.7x 5.1 cm in length which is normal in size. No renal cysts. No renal m ass or visualized echogenic stones. Otherwise, normal echotexture and contour. No hydronephrosis. Nor mal renal cortical thickness. LEFT KIDNEY: Measures 9.2x 5.5x 4.5 cm in length which is normal in size. No renal cysts. No renal ma ss or visualized echogenic stones. Otherwise, normal echotexture and contour. No hydronephrosis. Norm al renal cortical thickness. BLADDER: Normal. Ureteral jets were not seen bilaterally. Prostate enlargement and measures 4.3 x 4.8 x 5.1 cm. IMPRESSION: No definite abnormality in both kidneys. Enlarged prostate. Reviewed, dictated and finalized at location A.
--- NOTE | ~2024-04-03 | US_ITS ---
RENAL ULTRASOUND WITH DOPPLER VASCULAR EVALUATION Ordering provider: Hernan Posey DO History: . I10 - Essential (primary) hypertension . Comparison: None. Findings: DOPPLER ARTERIAL PSVs: The aorta measures 2.1 x 2.1 cm. Atherosclerotic changes are noted. Right: --Proximal renal artery: 92.1 cm/s (normal <180), monophasic, low resistive waveform. --Distal renal artery: cm/s, monophasic, low resistive waveform. --Resistive index: Proximal 0.88. mid 0.72. Distal 0.76 (normal 0.5-0.7) Left: --Proximal renal artery: 57.2 cm/s (normal <180), monophasic, low resistive waveform. --Distal renal artery: 55.7 cm/s, monophasic, low resistive waveform. --Resistive index: Proximal 0.72. Mid 0.80. Distal 0.73 (normal 0.5-0.7) IMPRESSION: Bilateral renal artery stenosis. Reviewed, dictated and finalized at location A.
== END 2024-04-03 09:15 | disposition home or self-care (01) ==
LOC: ANHIMG 09:17
PROVIDERS: PCP Internal Medicine; Visit Provider Internal Medicine
DX: I12.9 Hypertensive chronic kidney disease with stage 1 through stage 4 chronic kidney disease, or unspecified chronic kidney disease (principal); N18.30 Chronic kidney disease, stage 3 unspecified; R31.21 Asymptomatic microscopic hematuria; N40.0 Benign prostatic hyperplasia without lower urinary tract symptoms
CPT/HCPCS: 76775; 93976

== ENCOUNTER 2024-06-07 11:16 | Outpatient (CLI) | payer MEDICARE, OTHER, SELFPAY ==
[2024-06-07 19:04] LABS: Albumin Level 4.5 g/dL (3.5-5.1); Anion Gap 7 mmol/L (4-12); Blood Urea Nitrogen 25 mg/dL (9-20); Calcium 9.3 mg/dL (8.4-10.2); Carbon Dioxide 29 mmol/L (22-30); Chloride 102 mmol/L (98-107); Estimated Glomerular Filt Rate 49; Glucose 131 mg/dL (65-110); Phosphorus 3.6 mg/dL (2.5-4.5); Potassium 4.3 mmol/L (3.4-5.0); Sodium 138 mmol/L (137-145)
[2024-06-07 19:06] LABS: Creatinine Urine 50.8 mg/dL; Total Protein Urine Random 10 mg/dL
[2024-06-07 20:21] LABS: COMPLEMENT C4 35.6 mg/dL (14.0-44.0); Complement C3 112 mg/dL (88-165)
[2024-06-08 08:48] LABS: Protein, Total 6.8 g/dL (6.1-8.1)
[2024-06-09 08:09] LABS: Albumin 4.2 g/dL (3.8-4.8); Alpha 1 Globulin 0.3 g/dL (0.2-0.3); Alpha 2 Globulin 0.7 g/dL (0.5-0.9); Beta 1 Globulin 0.4 g/dL (0.4-0.6); Gamma Globulin 0.9 g/dL (0.8-1.7)
[2024-06-09 10:44] LABS: Creatinine, Random Urine 49 mg/dL (20-320); Total Prot/Creat ratio mg/mg 0.082 (0.025-0.148); Total Protein/Creatinine Ratio 82 mg/g creat (25-148)
[2024-06-09 14:48] LABS: Anti Glomerular Basement Memb <1.0 AI
[2024-06-13 10:53] LABS: ANCA Screen NEGATIVE (NEGATIVE)
== END 2024-06-07 11:17 | disposition home or self-care (01) ==
PROVIDERS: PCP Internal Medicine; Visit Provider Internal Medicine Nephrology
DX: I12.9 Hypertensive chronic kidney disease with stage 1 through stage 4 chronic kidney disease, or unspecified chronic kidney disease (principal); E11.22 Type 2 diabetes mellitus with diabetic chronic kidney disease; N18.31 Chronic kidney disease, stage 3a
CPT/HCPCS: 36415; 80069; 82570; 83520; 84155; 84156; 84165; 84166; 86036; 86038; 86039; 86160; 86225

== ENCOUNTER 2024-07-11 08:25 | Outpatient (CLI) | payer MEDICARE, OTHER, SELFPAY ==
[2024-07-11 19:28] LABS: Cholesterol 107 mg/dL (0-200); HDL Direct 39 mg/dL; Triglycerides 55 mg/dL (<150)
[2024-07-11 19:39] LABS: LDL Cholesterol Direct 51 mg/dL
[2024-07-11 19:55] LABS: Creatinine Urine 56.3 mg/dL
[2024-07-11 20:42] LABS: MALB Creatinine Ratio < 10.7 mg/g (0-30); Microalbumin Urine Random < 6.0 mg/L (0-16.7)
[2024-07-11 21:33] LABS: Hemoglobin A1C 6.7 % (<5.7)
== END 2024-07-11 08:26 | disposition home or self-care (01) ==
LOC: ANHBWCLAB 08:26
PROVIDERS: PCP Internal Medicine; Visit Provider Internal Medicine
DX: E78.5 Hyperlipidemia, unspecified (principal); E11.22 Type 2 diabetes mellitus with diabetic chronic kidney disease
CPT/HCPCS: 36415; 80061; 82043; 83036

== ENCOUNTER 2024-09-26 13:44 | Outpatient (CLI) | payer MEDICARE, OTHER, SELFPAY ==
[2024-09-26 13:59] LABS: Basophils Absolute Auto 0.1 K/mm3 (0.0-0.1); Basophils Percent Auto 0.5 % (0.2-1.2); Eosinophils Absolute Auto 0.4 K/mm3 (0-0.3); Eosinophils Percent Auto 3.5 % (0-4.4); Hematocrit 42.1 % (42.0-52.0); Hemoglobin 13.7 g/dL (14.0-18.0); Immature Granulocyte Absolute 0.04 K/mm3 (0.00-0.031); Immature Granulocyte Percent A 0.4 % (0-0.5); Lymphocytes Absolute Auto 1.46 K/mm3 (0.9-3.2); Lymphocytes Percent Auto 13.5 % (18.3-44.2); Mean Corpuscular HGB Conc 32.5 g/dl (32-36); Mean Corpuscular Hemoglobin 31.3 pg (26-34); Mean Corpuscular Volume 96.1 fl (80-100); Mean Platelet Volume 9.5 fl (7.4-10.4); Monocytes Absolute Auto 1.2 K/mm3 (0.1-0.6); Neutrophils Absolute Auto 7.7 K/mm3 (1.3-6.7); Neutrophils Percent Auto 71.1 % (45.5-73.1); Platelet Count Result 190 k/mm3 (150-375); Red Blood Count 4.38 M/mm3 (4.6-6.20); Red Cell Distribution Width 13.1 % (11.5-14.5); White Blood Count 10.8 K/mm3 (4.5-10.0)
--- OUTSIDE RECORDS SUMMARY | 2024-09-26 14:23 | XMS_ITS | Clinical Summary ---
[facility] Address [address] [place] [address] Care Team Providers Care Fermentologist Name Role Phone Hernan Posey DO Primary Care Provider Allergies No known active allergies Medications aspirin (ECOTRIN EC) 81 mg Tablet, Delayed Release (E.C.) Take 81 mg by mouth daily. Active lisinopriL (PRINIVIL) 10 mg tablet Take 10 mg by mouth daily. Active metFORMIN (GLUCOPHAGE) 1,000 mg tablet Take 1,000 mg by mouth 2 times daily with meals. Active levothyroxine 100 mcg tablet Take 100 mcg by mouth daily in the morning. Active ezetimibe (ZETIA) 10 mg tablet Take 10 mg by mouth daily. Active cyanocobalamin 1,000 mcg Tablet Take 1,000 mcg by mouth daily. Active Fish Oil-[place]-3 Fatty Acids 300-500 mg Capsule Take by mouth. Active latanoprost (XALATAN) 0.005 % solution 1 Drop daily at bedtime. Active hydrALAZINE (APRESOLINE) 10 mg tablet Take 10 mg by mouth 4 times daily. Active Active Problems No known active problems Encounters Date Type Department Care Team Description 09/20/2024 External Device Data STL ABSTRACTION Provider, Abstract from Last 3 Months Family History Medical History Relation Name Comments Heart Disease Brother 1 Heart Disease Brother 2 Diabetes Daughter No Known Problems Father Breast Cancer Mother No Known Problems Son Relation Name Status Comments Brother 1 Brother 2 Daughter Alive Father Mother Son Alive Social History Tobacco Use Types Packs/Day Years Used Date Smoking Tobacco: Former Cigarettes 3 25 0 01/11/1960 - 01/10/1985 Tobacco Cessation:Counseling Given: Not Answered Alcohol Use Standard Drinks/Week Comments Not Currently 0 (1 standard drink = 0.6 oz pur e alcohol) Sex and Gender Information Value Date Recorded Sex Assigned at Not on file Legal Sex Male 2:03 PM HORTICULTURAL MANAGER Gender Identity Not on file Sexual Orientation Not on file Last Filed Vital Signs Vital Sign Reading Time Taken Comments Blood Pressure 130/67 10/01/2023 11:55 AM HORTICULTURAL MANAGER Pulse 57 10/01/2023 11:55 AM HORTICULTURAL MANAGER Temperature 36.1 ??C (97 ??F) 10/01/2023 11:55 AM HORTICULTURAL MANAGER Respiratory Rate 14 10/01/2023 11:55 AM HORTICULTURAL MANAGER Oxygen Saturation 99% 12/02/2022 3:16 PM CDT Inhaled Oxygen Concentration - - Weight 81.6 kg (180 lb) 10/01/2023 11:55 AM HORTICULTURAL MANAGER Height 182.9 cm (6') 10/28/2022 10:21 AM HORTICULTURAL MANAGER Body Mass Index 24.41 10/28/2022 10:21 AM HORTICULTURAL MANAGER Plan of Treatment Upcoming Encounters Date Type Department Care Team (Late st Contact Info) Description 10/02/2024 11:30 AM HORTICULTURAL MANAGER Office Visit [facility] Oncology and Hematology - [place] [address] [facility] [address] [place] [address] Samir Fritz MD [address] [facility] [address] [place] [address] Health Maintenance Due Date Last Done Comments DIABETES ANNUAL FOOT EXAM 02/15/1962 DIABETES MICROALBUMIN ANNUAL SCREEN 02/15/1962 LDL CHOLESTEROL ANNUAL 02/15/1962 DTAP/TDAP/TD VACCINES (1 - Tdap) 02/15/1963 PNEUMOCOCCAL VACCINE 65+ YEA RS (1 of 2 - PCV) 02/15/1963 Traditional Medicare (ACO) A nnual Wellness Visit 02/15/1963 ZOSTER VACCINE (2 of 3) 08/30/2014 07/05/2014 RSV VACCINE (60+ or ) (1 - 1-dose 75+ series) 02/15/2019 DIABETES ANNUAL RETINAL EXAM 05/12/2022, 06/21/2020, 01/04/2020, Additional history exists INFLUENZA VACCINE (#1) 2024 DIABETES HBA1C Q 6 MONTHS 09/15/20242023, 09/15/2023, 03/09/2023, Additional history exists Insurance MEDICARE PART A AND B FOR LIFE Care Teams Fermentologist Relationship Specialty Start Date End Date Hernan Posey DO [address] [id number] PCP - General Internal Medicine 10/28/22
--- OUTSIDE RECORDS SUMMARY | 2024-09-26 14:23 | XMS_ITS | Clinical Summary ---
Author Organization [facility] Address [address] [place] [address] Care Team Providers Care Generating Plant Superintendent Name Role Phone Hernan Posey DO Primary Care Provider [phone] Allergies No known active allergies Medications atorvastatin (LIPITOR) 20 mg tablet Take 1 tablet (20 mg total) by mouth daily 03/06/2019 Active metFORMIN (GLUCOPHAGE) 1,000 mg tablet Take 1 tablet (1,000 mg total) by mouth 2 (two) times a day 2019 Active ZETIA 10 mg tablet Take 1 tablet (10 mg total) by mouth daily 2019 Active latanoprost (XALATAN) 0.005 % ophthalmic solution 03/08/2019 Active COMBIGAN 0.2-0.5 % ophthalmic solution 03/08/2019 Active cyanocobalamin (Vitamin B-12) 1,000 mcg tabletIndication s:Prevention of Vitamin B12 Deficiency Take 1 tablet (1,000 mcg total) by mouth daily Active omega-3 fatty acids 1,250 mg capsule Take by mouth Active aspirin 81 mg enteric coated tablet Take 1 tablet (81 mg total) by mouth daily Active hydrALAZINE (APRESOLINE) 10 mg tabletIndication s:hypertension Take 1 tablet (10 mg total) by mouth 3 (three) times a day Active Synthroid 100 mcg tablet 08/05/2021 Active lisinopriL (PRINIVIL,ZESTRI L) 20 mg tablet 03/10/2022 Act kobi sildenafiL (VIAGRA) 100 mg tablet 05/11/2022 Active Active Problems Problem Noted Date Diagnosed Date Melanoma of neck 03/30/2022 Melanoma in situ of neck 03/30/2022 Coronary artery disease invo lving knik coronary artery 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 09/29/2018 History of coronary artery stent placement 09/29 Surgical History Surgery Date Site/Laterality Comments CARDIAC CATHETERIZATION SKIN CANCER EXCISION Medical History Medical History Date Comments Diabetes mellitus (HCC) Hypertension Thyroid disease Heart valve disease Heart attack (HCC) Glaucoma Family History Medical History Relation Name Comments Diabetes Brother Eh Mendoza Heart disease Brother Eh Mendoza Hypertension Father Tito Mendoza Cancer Mother Paula Mendoza Relation Name Status Comments Brother Eh Mendoza Father Tito Mendoza Mother Paula Mendoza Social History Tobacco Use Types Packs/Day Years Used Date Smoking Tobacco: Former Cigarettes Smokeless Tobacco: Never Tobacco Cessation:Counseling Given: Not Answered Comments:quite 1985 Alcohol Use Standard Drinks/Week Comments Yes 0 (1 standard drink = 0.6 oz pur e alcohol) RARE AUDIT-C Answer Date Recorded Frequency of Alcohol Consumption Never 03/30/2019 Average Number of Drinks Not on file 019 Frequency of Binge Drinking Not on file 08/2018 Personal Safety Answer Date Recorded Getting School Help Needed Not on file 10/07 Sex and Gender Information Value Date Recorded Sex Assigned at Not on file Legal Sex Male 2:56 AM FORM DRAFTER Gender Identity Not on file Sexual Orientation Not on file Obstetrics History Last Filed Vital Signs Vital Sign Reading Time Taken Comments Blood Pressure 112/58 10/14/2023 10:15 AM FORM DRAFTER Pulse 73 10/14/2023 10:15 AM FORM DRAFTER Temperature 36.5 ??C (97.7 ??F) 07/09/2019 5:15 PM CS T Respiratory Rate 18 07/09/2019 9:30 PM FORM DRAFTER Oxygen Saturation 94% 10/14/2023 10:15 AM FORM DRAFTER Inhaled Oxygen Concentration - - Weight 83 kg (183 lb) 10/14/2023 10:15 AM FORM DRAFTER Height 182.9 cm (6') 10/14/2023 10:15 AM FORM DRAFTER Body Mass Index 24.82 10/14/2023 10:15 AM FORM DRAFTER Plan of Treatment Health Maintenance Due Date Last Done Comments Depression Screening 1945 Fall Risk Assessment 1945 DTaP/Tdap/Td Vaccine (1 - Tdap) 02/15/1955 Hepatitis B Screening 02/15/1962 Zoster Vaccine (1 of 2) 02/15/1994 Abdominal Aortic Aneurysm (A AA) Screen 02/15/2009 Well Visit 65+ 02/15/2009 Influenza Vaccine (#1) 2024 9, 06/20/2018, 06/28/2017, Additional history exists Pneumococcal vaccine 65+ Completed 07/15/2016, 02/2015 Insurance MEDICARE [employer] MEDICARE FOR LIFE MEDICARE [facility] Address: [address] [address] FOR LIFE Care Teams Generating Plant Superintendent Relationship Specialty Start Date End Date Hernan Posey DO PCP - General Internal Medicine 09/29/18
--- OUTSIDE RECORDS SUMMARY | 2024-09-26 14:23 | XMS_ITS | Clinical Summary ---
Author Organization [facility] Address [address] [place] [address] Phone Care Team Providers Care Rodbuster Name Role Phone Provider, None Primary Care Provider Unavailabl e Allergies No known active allergies Medications aspirin EC 81 MG Tablet Delayed Response Take 81 mg by mouth. Active atorvastatin (LIPITOR) 20 MG Tablet Take 20 mg by mouth. 03/06/2019 Active Combigan 0.2-0.5 % Solution 07/30/2020 Active Cyanocobalamin (VITAMIN B-12) 1000 MCG Tablet Take 1,000 mcg by mouth. Active ezetimibe (ZETIA) 10 MG Tablet Take 10 mg by mouth. 2019 Active hydrALAZINE 10 MG Tablet Take 10 mg by mouth. Active latanoprost (XALATAN) 0.005 % Solution 07/30/2020 Active levothyroxine (SYNTHROID) 100 MCG Tablet Take 100 mcg by mouth. 06/01/2019 Active lisinopril (PRINIVIL, ZESTRIL) 5 MG Tablet 1 Tab. 2019 Active metFORMIN (GLUCOPHAGE) 1000 MG Tablet 07/15/2020 Acti ve Active Problems No known active problems Social History Tobacco Use Types Packs/Day Years Used Date Smoking Tobacco: Never Smokeless Tobacco: Never Sex and Gender Information Value Date Recorded Sex Assigned at Not on file Legal Sex Male 1:33 PM HOT KNIFE CUTTER Gender Identity Not on file Sexual Orientation Not on file Last Filed Vital Signs Vital Sign Reading Time Taken Comments Blood Pressure 140/62 08/21/2020 2:28 PM HOT KNIFE CUTTER Pulse 59 08/21/2020 2:28 PM HOT KNIFE CUTTER Temperature 36.8 ??C (98.2 ??F) 08/21/2020 2:28 PM CS T Respiratory Rate - - Oxygen Saturation 97% 08/21/2020 2:28 PM HOT KNIFE CUTTER Inhaled Oxygen Concentration - - Weight - - Height - - Body Mass Index - - Plan of Treatment Health Maintenance Due Date Last Done Comments Hepatitis C Virus (HCV) Screening 1945 Zoster Immunization (1 of 2) 02/15/1994 Respiratory Syncytial Virus (RSV) Immunization (Adult) (1 - 1-dose 75+ series) 02/15/2019 Influenza Immunization (#1) 04/30/202405/31, 06/20/2019, 06/20/2018, Additional history exists SARS-COV-2 Immunization ( season) 2024 07/07/2021, 11/21/2020, 10/24/2020 Pneumococcal Immunization (50+ years) Completed 07/15/2016, 09/05/2014 Pneumococcal Immunization Combined Discontinued 07/15/2016, 09/05/2014 DTaP/Tdap/Td Immunization Discontinued 07/09/2019 TdaP Immunization Completed 07/09/2019 Hepatitis B Immunization Aged Out No longer eligible based on patient's age to complete this topic Meningococcal Immunization (ACWY) Aged Out No longer eligible based on patient's age to complete this topic Rotavirus Immunization Aged Out No lo nger eligible based on patient's age to complete this topic Insurance MEDICARE [facility] [employer] [place] [phone] [employer] Care Teams Rodbuster Relationship Specialty Start Date End Date Provider, None [place] PCP - General 08/21/20
--- OUTSIDE RECORDS SUMMARY | 2024-09-26 14:23 | XMS_ITS | Referral Summary ---
Author Organization [facility] Address [address] [place] [address] Care Team Providers Care Manager Shop Name Role Phone Hernan Posey DO Primary Care Provider [phone]- [phone] Allergies No known active allergies Medications atorvastatin [...] neck 03/30/2022 Coronary artery disease invo lving eagle coronary artery of eagle heart without angina pectoris 09/29/2018 History of coronary artery stent placement 09/29 Social History Tobacco Use Types Packs/Day Years [...] on file Legal Sex Male 2:56 AM MACHINE CLOTH MEASURER Gender Identity Not on file Sexual Orientation Not on file Last Filed Vital Signs Vital Sign Reading Time Taken Comments Blood Pressure 112/58 10/14/2023 10:15 AM MACHINE CLOTH MEASURER Pulse 73 10/14/2023 10:15 AM MACHINE CLOTH MEASURER Temperature 36.5 ??C (97.7 ??F) 07/09/2019 5:15 PM CS T Respiratory Rate 18 07/09/2019 9:30 PM MACHINE CLOTH MEASURER Oxygen Saturation 94% 10/14/2023 10:15 AM MACHINE CLOTH MEASURER Inhaled Oxygen Concentration - - Weight 83 kg (183 lb) 10/14/2023 10:15 AM MACHINE CLOTH MEASURER Height 182.9 cm (6') 10/14/2023 10:15 AM MACHINE CLOTH MEASURER Body Mass Index 24.82 10/14/2023 10:15 AM MACHINE CLOTH MEASURER Plan of Treatment Not on file Insurance MEDICARE FOR LIFE MEDICARE FOR LIFE MEDICARE FOR LIFE Care Teams Manager Shop Relationship Specialty Start Date End Date Hernan Posey DO PCP - General Internal Medicine 09/29/18
--- OUTSIDE RECORDS SUMMARY | 2024-09-26 14:23 | XMS_ITS | Continuity of Care Document ---
Author Name [facility] Organization [facility] Care Team Providers Care Technical Services Analyst Name Role Phone [facility] Unavailable Unavailable Problems Combined list of problems from Department of Defense and Veterans Affairs facilities. It does not include entries that were removed or entered in error. 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 Condition DoD skin neoplasm upper extremities basal cell carcinoma Active Condition DoD skin neoplasm basal cell carcinoma upper arm Active Condition DoD Removal Of Sutures Inactive Condition Do D skin neoplasm uncertain behavior Active Condition DoD actinic keratosis Active Condition DoD visit for: issue repeat prescription Active Condition DoD tingling (paresthesia) Active Condition A1C at goal (but not strict goal per ACCE).LDL at goal.No signs nephropathy.Ear ly signs of neuropathy.High fasting sugars.Will get monitor calibrated by ordering fasting glucose at lab and having pt stick himself then.Also counseled that we should strive for tighter control based on am sugars and possible early neuropathy. Pt opts for PO meds over long-acting insulin. DoD nonallopathic lesions sacral Active Condition DoD nonallopathic lesions pelvic Active Condition Performed OMT including HVLA and ME and MFR to pelvis, sacrum and LLE. Physical abnormal findings normalized post tx, pt hay well. Will refer to [facility] DO clinic for f/u eval. DoD muscle cramps in the calf Active Condition DoD warts Active Condition DoD visit for: refer patient without exam or treatment Inactive Condition DoD visit for: administrative purpose Active Condition DoD osteoarthritis Active Condition DoD diabetes mellitus Active Condition Do ing well, will continue glyburide and recheck a1c 3 months from previous check. DoD hypertension systemic Active Condition DoD hyperlipidemia Active Condition DoD visit for: issue repeat prescription for medication Active Condition DoD lumbago Active Condition No red fla g sx. Clinically has muscle spasm. Other sx suggest possibility of disc herniation. Continue with Naproxen, Flexeril. F/u with OMT as prev instructed. Advise use and heat pads. PT consult added. Will not obtain MRI yet as this won't change my initial management. Pt to call back if sx worse or no better in 3-4 weeks and may consider imaging at that time. [facility] coronary artery disease Active Condition DoD foot pain (soft tissue) Inactive Condition Pain on lateral aspect of foot is quite diminished from last week - will have him see how he does over next few weeks and re-eval w/ xray if needed. DoD Medications Combined list of outpatient medications from Department of Defense and Veterans Affairs facilities.Medications provided include 1) outpatient medications from the last 15 months, and 2) patient-reported medications. Medication Details Route Status Patient Instructions Prescription Expires Prescription Number Last Dispense Date Ordering Provider Order Date Order Qty Source atorvastati n 20 mg tablet 20 mg, Oral, Daily, # 90 EA, 1 total refill(s ), Hard Stop Oral (given by mouth) Ordered 07/24/2025 90.0 Ambul at ory Pharmac y atorvastati n 20 mg tablet 20 mg, Oral, Daily, # 90 EA, 1 total refill(s ), Hard Stop Oral (given by mouth) Complet ed 07/25/2024 90.0 Ambulat ory Pharmac y atorvastati n 20 mg tablet 20 mg, Oral, Daily, # 90 EA, 1 total refill(s ), Hard Stop Oral (given by mouth) Discont inued 07/25/2024 90.0 Ambulat ory Pharmac y Brimonidine 0.2% + Timolol 0.5%, Solution, Ophthalmic May cause drowsine ss.May impair driving. For the eye. 09/21/2024 [id number] 4 2023 15 [employer] Raphael SALCIDO ([facility] brimonidine -timolol 0.2%-0.5% eye drops [5mL] = 1 drop(s), # 15 mL, 4 total refill(s ), Hard Stop Complet ed 09/21/2024 15.0 Ambulat ory Pharmac y cephalexin 500 mg capsule See Instruct ions, Oral, # 14 EA, 0 total refill(s ), Hard Stop Oral (given by mouth) Complet ed 05/18/2024 14.0 Ambulat ory Pharmac y Combigan 0.2%-0.5% eye drops [10mL] See dose instruct semaj in comments , # 20 mL, 2 total refill(s ), Acute Complet ed 09/07/2023 20.0 Ambulat ory Pharmac y DOXYCYCLINE HYCLATE (doxycyclin e hyclate), 20 MG, TABLET, ORAL, Super Derivatives, 100 ea. BOTTLE Active [id number] 4 2023 28 Pharmac y Data [employer] t[employer] Service Facilit y ezetimibe (U/D) 10 MG ORAL TAB Take or use exactly as directed .Obtain advice for OTCs.[place] ck with your doctor before becoming . Active 10/24/2024 [id number] 4 2023 90 [employer] [facility] Raphael SALCIDO ([facility] ezetimibe 10 mg tablet See Instruct ions, # 90 EA, 3 total refill(s ), Hard Stop Ordered 03/20/2025 90.0 Ambul at ory Pharmac y ezetimibe 10 mg tablet 10 mg, Oral, Daily, # 90 EA, 1 total refill(s ), Hard Stop Oral (given by mouth) Discont inued 03/21/2024 90.0 Ambulat ory Pharmac y ezetimibe 10 mg tablet See Instruct ions, # 90 EA, 2 total refill(s ), Acute Complet ed 09/07/2023 90.0 Ambulat ory Pharmac y hydrALAZINE 10 mg tablet 10 mg, Oral, TID, # 270 EA, 3 total refill(s ), Hard Stop Oral (given by mouth) Complet ed 04/22/2024 270.0 Ambulat ory Pharmac y hydrALAZINE 10 mg tablet 10 mg, Oral, TID, # 270 EA, 3 total refill(s ), Hard Stop Oral (given by mouth) Ordered 04/25/2025 270.0 Ambul at ory Pharmac y latanoprost 0.005% eye drops [2.5mL] See Instruct ions, # 7.5 mL, 6 total refill(s ), Hard Stop Discont inued 03/21/2024 7.5 Ambulat ory Pharmac y latanoprost 0.005% eye drops [2.5mL] See dose instruct ions in comments , # 7.5 mL, 4 total refill(s ), Acute Complet ed 11/26/2023 7.5 Ambulat ory Pharmac y latanoprost 0.005% eye drops [2.5mL] See Instruct ions, # 8 mL, 4 total refill(s ), Hard Stop Ordered 03/21/2025 7.5 Ambul at ory Pharmac y levothyroxi ne (Synthroid) 100 mcg tablet 100 mcg, Oral, Daily, # 90 EA, 1 total refill(s ), Hard Stop Oral (given by mouth) Complet ed 07/25/2024 90.0 Ambulat ory Pharmac y levothyroxi ne (Synthroid) 100 mcg tablet 100 mcg, Oral, Daily, # 90 EA, 1 total refill(s ), Hard Stop Oral (given by mouth) Ordered 07/24/2025 90.0 Ambul at ory Pharmac y levothyroxi ne (Synthroid) 100 mcg tablet 100 mcg, Oral, Daily, # 90 EA, 1 total refill(s ), Hard Stop Oral (given by mouth) Discont inued 07/25/2024 90.0 Ambulat ory Pharmac y Levothyroxi ne Sodium ([place]) Tablet 100 mcg Oral Take on empty stomach. Take with plenty of water.Be careful if taking OTCs.Mark e or use exactly as directed . Active 01/17/2025 [id number] 4 [address] [place] [address] Raphael KENDALL ([facility] Levothyroxi ne Sodium ([place]) Tablet 100 mcg Oral Take on empty stomach. Take with plenty of water.Be careful if taking OTCs.Mark e or use exactly as directed . 07/25/2024 [id number] 3 [address] [place] [address] Raphael SALCIDO ([facility] lisinopril 10 mg tablet 10 mg, Oral, # 90 EA, 3 total refill(s ), Hard Stop Oral (given by mouth) Complet ed 02/26/2024 90.0 Ambulat ory Pharmac y lisinopril 10 mg tablet See Instruct ions, # 90 EA, 3 total refill(s ), Hard Stop Ordered 03/20/2025 90.0 Ambul at ory Pharmac y metFORMIN 1000 mg tablet 1000 mg, Oral, BID, # 180 EA, 1 total refill(s ), Hard Stop Oral (given by mouth) Ordered 07/24/2025 180.0 Ambul at ory Pharmac y metFORMIN 1000 mg tablet 1000 mg, Oral, BID, # 180 EA, 1 total refill(s ), Hard Stop Oral (given by mouth) Discont inued 07/25/2024 180.0 Ambulat ory Pharmac y metFORMIN 1000 mg tablet 1000 mg, Oral, BID, # 180 EA, 2 total refill(s ), Hard Stop Oral (given by mouth) Complet ed 04/22/2024 180.0 Ambulat ory Pharmac y Metformin Hydrochlori de Tablet Extended Release 1,000 mg Oral Do not drink alcohol. Take with food/mil k.Take or use exactly as directed .Obtain advice for OTCs.[place] ck with your doctor before becoming . Active 01/17/2025 [id number] 4 2023 180 [facility] Raphael SALCIDO ([facility] sildenafil 100 mg tablet 100 mg, Oral, Daily, # 30 EA, 2 total refill(s ), Hard Stop Oral (given by mouth) Ordered 07/24/2025 30.0 Ambul at ory Pharmac y sildenafil 100 mg tablet See Instruct ions, # 18 EA, 1 total refill(s ), Hard Stop Complet ed 07/25/2024 18.0 Ambulat ory Pharmac y Allergies, Adverse Reactions, Alerts Combined list of allergies from Department of Defense and Veterans Affairs facilities. It does not include entries that were removed or entered in error. Substance Category Reaction Severity Reaction type Status Date Reported Comments Source NO OUTPUT FOR NCID 466200 Drug allergy (disorder) active 05/09/[address] [place] [address] Raphael KENDALL ([facility] Immunizations Combined list of available immunizations from the Department of Defense and Veterans Affairs facilities. Immunization Series Date Given Administered By Site Reaction Lot Number CVX Code Drug Lacer And Tier Status Comments Source zoster vaccine live 2013 121 [employer] complet ed zoster vaccine live 07/05/14 Given Ambulat ory Pharmac y influenza virus vaccine,split 2003 bebezLef t Arm [id number] sanofi pasteur complet ed influenza virus vaccine,s plit 08/19/04 Given Ambulat ory Pharmac y influenza virus vaccine,split 2003 [id number] sanofi pasteur complet ed influenza virus vaccine,s plit 08/19/04 Given Ambulat ory Pharmac y influenza virus vaccine, split virus (incl. purified surface antigen)-reti red CODE 1 2003 Unknown, Provider [id number] Sanofi Pasteur (PMC) complet ed influenza virus vaccine, split virus (incl. purified surface antigen)- retired CODE DoD Vital Signs Combined list of inpatient and outpatient Vital Signs from Department of Defense and Veterans [facility], ranging from 12 months to all on record, depending upon the facility. Vital Sign Value Date Comments Source No data available for this section Ambulatory Pharmacy Encounters Combined list of: 1) Encounters from Department of Veterans Affairs facilities going back up to thelast 18 months. 2) Encounters from the Department of [employer] facilities going back up to 280 months. Location Location Details Encounter Type Encounter Number Reason For Visit Attending Provider ADM Date DC Date Status Disposition Source [address] [place] [address] Raphael SALCIDO [facility]Sco [facility] Tm Blue) TELE CONSULT [id number] Med refill and pos labs MANUEL RUIZ 03/[address] [place] [address] Raphael SALCIDO [facility]S cott [facility] [place] [facility] Tm Blue) [address] [place] [address] Raphael SALCIDO [facility]Sco [place] [facility] [place] [facility] Tm Blue) TELE CONSULT [id number] lab results SKINNY GODWIN 04/[address] [place] [address] Raphael SALCIDO [facility]S cott [facility] [place] [facility] Tm Blue) [address] [place] [address] Raphael SALCIDO [facility]Sco [place] [facility] [place] [facility] Tm Blue) TELE CONSULT [id number] lab results SKINNY GODWIN 04/[address] [place] [address] Raphael SALCIDO ([facility]S cott [facility] [place] [facility] Tm Blue) [address] [place] [address] Raphael [facility]CIDO [facility]Sco tt [facility] [place] Tm Blue) OUTPATIENT [id number] f/u labs ZEKE Melissa 05/11 Released w/o Limitations [address] [place] [address] Raphael SALCIDO [facility]S cott [facility] [facility] [place] Blue) [address] [place] [address] Raphael SALCIDO [facility]Sco tt [facility] [place] Tm Blue) TELE CONSULT [id number] accu checks MAURICIOIANTREASURE ZEKE FIELD 05/[address] [place] [address] [employer] ([facility]S cott [facility] [place] [facility] [place]m Blue) [address] [place] [address] Raphael KENDALLB ([facility])(Sco tt [facility] Tm Blue) TELE CONSULT [id number] med refSKINNY Harman 06/[address] [place] [address] [employer] ([facility])(S cott [facility] Tm Blue) [address] [place] [address] [employer] ([facility])(Sco tt [facility] Tm Blue) TELE CONSULT [id number] med refill SKINNY GODWIN 06/[address] [place] [address] Raphael KENDALLB ([facility]S cott [facility] Tm Blue) [address] [place] [address] [employer] ([facility])(Sco tt [facility] [place] Tm Blue) OUTPATIENT [id number] f/u on heart conditi on and diabeti es SKINNY GODWIN 08/11 Released w/o Limitations [address] [place] [address] [employer] ([facility]S cott [facility] Tm Blue) [address] [place] [address] [employer] ([facility])(Car diology Rs (Mtf)) OUTPATIENT [id number] Cardiac stent - Feb 2003 @ [facility] 08/25 Released w/o Limitations [address] [place] [address] [employer] ([facility])(C ardiolo gy Rs (Mtf)) [address] [place] [address] [employer] ([facility])(Car diology Rs (Mtf)) OUTPATIENT [id number] go over lab work, [facility] 09/29 Released w/o Limitations [address] [place] [address] [employer] ([facility])(C ardiolo gy Rs (Mtf)) [address] [place] [address] [employer] ([facility]Sco tt [facility] Tm Blue) OUTPATIENT [id number] 60 yr old phys/rt foot pain KRISSY HUBBARD 10/12 Released w/o Limitations [address] [place] [address] Group [employer] ([facility]S cott [facility] Tm Blue) [address] [place] [address] [employer] ([facility])(Car diology Rs (Mtf)) OUTPATIENT [id number] f/u MAVIS, ERIKA 12/22 Released w/o Limitations [address] [place] [address] [facility]hael KENDALLB ([facility])(C ardiolo gy Rs ([facility])) [facility] Raphael FAIZAB ([facility])(Sco tt [facility] Tm Blue) TELE CONSULT [id number] Med RefSKINNY Harman 01/11 [facility] Raphael KENDALLB ([facility])(S cott OF [facility] Tm Blue) [facility] Raphael FAIZAB ([facility])(Car diology Rs ([facility])) OUTPATIENT [id number] f/u ABILIO MOLINA 01/19 Released w/o Limitations [facility] Medical [facility] Raphael KENDALLB ([facility])(C ardiolo gy Rs ([facility])) [facility] Raphael FAIZAB ([facility]Sco [facility] Fam Res Tm Green) TELE CONSULT [id number] Med Refill KARLIE KNOX 03/[address] [place] [address] Raphael FAIZAB ([facility])(S cott OF Fam Res [employer] Green) [facility]hael FAIZAB ([facility]co tt [facility] Fam Res Tm Green) OUTPATIENT [id number] f/u SKINNY Carter 04/23 Released w/o Limitations [address] [place] [address] Raphael KENDALLB ([facility])(S cott OF Fam Res [employer] [place]) [facility] Raphael FAIZAB ([facility])(Sco tt [facility] Tm Blue) TELE CONSULT [id number] SKINNY Church 05/26 [facility] Raphael FAIZAB ([facility])(S cott [facility]m Blue) [facility] Raphael FAIZAB ([facility]Sco [facility] Fam Res [place]m Green) TELE CONSULT [id number] Med refill SKINNY GODWIN 07/15 [facility] [employer] ([facility])(S cott OF Fam Res [place] [place]) [facility] [employer] ([facility]Sco [facility] Fam Res [place]) OUTPATIENT [id number] lower back pain GRAND Matthew CHOI 09/06 Released w/o Limitations [facility] [employer] ([facility])(S cott OF Fam Res [employer] [place]) [facility] [employer] ([facility]Sco [facility] Fam Res [place] Green) TELE CONSULT [id number] Med SKINNY Mjeia 10/11 [facility] [employer] ([facility])(S cott OF Fam Res [place] [place]) [facility] [employer] ([facility]Sco tt [facility] Fam Res [place]) TELE CONSULT [id number] SKINNY Mejia 10/20 [facility] Raphael FAIZAB ([facility])(S cott OF Fam Res [place] [place]) [facility] [employer] ([facility]Sco tt [facility] Fam Res [place]) TELE CONSULT [id number] SKINNY Mclean 11/04 [facility] Raphael FAIZAB ([facility])(S cott [facility] F[facility] Res [place]) [facility] [employer] ([facility]Sco tt [facility] Fam Res [place] [place]) OUTPATIENT [id number] F/U eval of DM/SKINNY Topete 11/19 Released w/o Limitations [facility] Raphael FAIZAB ([facility]S cott [facility] Res [place]) [facility] Raphael FAIZAB ([facility]co tt [facility] Fam Res [place] [place]) TELE CONSULT [id number] SKINNY Mclean 12/13 [facility] Raphael FAIZAB ([facility])(S cott [facility] Fam Res [place]) [facility] Raphael FAIZAB ([facility]Sco tt [facility] Fam Res [place]m [place]) TELE CONSULT [id number] SKINNY Mclean 04/19 [facility] [employer] ([facility])(S cott [facility] Fam Res [place]) [facility] [employer] ([facility]Sco tt [facility] Fam Res [place]) TELE CONSULT [id number] SKINNY Mclean 05/06 [facility]hael KENDALLB ([facility])(S cott [facility] Fam Res [place]m [place]) [facility] [employer] ([facility]Sco tt [facility] Fam Res [place]) OUTPATIENT [id number] F/U DIABETE SKINNY HAIRSTON 05/30 Released w/o Limitations [facility] [employer] ([facility]S cott [facility] F[facility] Res [place]) [facility] Raphael SALCIDO ([facility]Sco tt [facility] Fam Res [place]m Green) TELE CONSULT [id number] Call-Ba SKINNY Mays 06/[address] [place] [address] Raphael FAIZAB ([facility])(S cott OF Fam Res [place]m [place]) [address] [place] [address] Raphael FAIZAB ([facility]Sco tt [facility] Fam Res [place] [place]) TELE CONSULT [id number] ReferSKINNY Funes 06/[address] [place] [address] Raphael FAIZAB ([facility]S cott [facility] Fam Res [place]) [address] [place] [address] Raphael [facility]IZAB ([facility]Sco tt [facility] Fam Res [place]) OUTPATIENT [id number] [phone] pain left side hip radiati ng to the leg NOAH NOONAN 09/29 Released w/o Limitations [address] [place] [address] Raphael FAIZAUlysses ([facility])(S cott [facility] Fam Res [place]m Green) [address] [place] [address] Raphael FAIZAB ([facility])(Sco tt [facility] Fam Res [place] [place]) TELE CONSULT [id number] Med Refill SKINNY GODWIN 10/04 [facility] Raphael FAIZAB ([facility])(S cott [facility] Fam Res Tm Green) select medical specialty [facility] Raphael FAIZAB [facility])(Fam unique Practice Non-GME FHI1) OUTPATIENT [id number] LOWER BACK PAIN GRAHAM WOODY 10/05 Released w/o Limitations [address] [place] [address] Raphael FAIZAUlysses ([facility])(F amily Practic e Non-GME FHI1) [facility] Raphael FAIZAB ([facility])(Sco tt [facility] Fam Res Tm Green) OUTPATIENT [id number] f/u back pain SKINNY GODWIN 10/07 Released w/o Limitations [address] [place] [address] Raphael FAIZAB ([facility])(S cott [facility] F[facility] [place] [place] Raphael FAIZAB ([facility])(Sco tt [facility] [place] Fam Res Tm Green) TELE CONSULT [id number] Med Refill SKINNY GODWIN 01/[address] [place] [address] Raphael FAIZAB ([facility])(S cott [facility] Fam Res Tm Green) [address] [place] [address] Raphael FAIZAB ([facility])(Sco tt [facility] [place] Fam Res Tm Green) TELE CONSULT [id number] Med Refill SKINNY GODWIN 01/[address] [place] [address] Raphael KEDNALLB ([facility])(S cott [facility] [place] Fam Res Tm Green) [address] [place] [address] Raphael KENDALLB ([facility])([facility]co tt [facility] [place] Fam Res Tm Green) OUTPATIENT [id number] f/u DM [phone] SKINNY GODWIN 02/05 Released w/o Limitations [address] [place] [address] Raphael KENDALLB [facility])(S cott [facility] Fam Res Tm Green) [address] [place] [address] Raphael KENDALLB [facility])(Sco tt [facility] [place] FAMRES Tm Blue) OUTPATIENT [id number] F/U SHERRONAL FOR ESTEBAN GLASS 03/29 Released w/o Limitations [address] [place] [address] Raphael FAIZAB [facility]S cott [facility] FAMRES Tm Blue) [address] [place] [address] Raphael FAIZAB [facility]Sco tt [facility] [place] FAMRES Tm Blue) TELE CONSULT [id number] Medicat ion Renewal DONELL CUEVAS 05/[address] [place] [address] Raphael FAIZAB [facility]S cott [facility] FAMRES Tm Blue) [address] [place] [address] Raphael FAIZAB [facility]Sco tt [facility] [place] FAMRES Tm Blue) TELE CONSULT [id number] Medicat ion Request DONELL CUEVAS 07/[address] [place] [address] Raphael FAIZAB ([facility]S cott [facility] FAMRES Tm Blue) [address] [place] [address] Raphael FAIZAB ([facility]Sco tt [facility] Fam Res Tm Green) OUTPATIENT [id number] growth on upper back, tender - CHRIS JOHNS 09/12 Released w/o Limitations [address] [place] [address] Raphael FAIZAB [facility]S cott [facility] Fam Res Tm Green) [address] [place] [address] [employer] [facility]Sco tt [facility] FAMRES Tm Blue) OUTPATIENT [id number] MINOR PROCEDU RES-sha ve biopsy X2 CICI SENA 09/18 Released w/o Limitations [address] [place] [address] [employer] ([facility])(S cott [facility] FAMRES Tm Blue) [address] [place] [address] [employer] [facility]Sco tt [facility] [place] FAMRES Tm Blue) TELE CONSULT [id number] F/U Biopsy Results ... CICI SENA 09/[address] [place] [address] [employer] ([facility])(S cott [facility] FAMRES Tm Blue) [address] [place] [address] [employer] ([facility])(Sco tt [facility] [place] [place] FAMRES Tm Blue) OUTPATIENT [id number] Suture PEPITO HUI 09/27 Released w/o Limitations [address] [place] [address] [employer] ([facility])(S cott [facility] FAMRES Tm Blue) [address] [place] [address] [employer] ([facility])(Sco tt [facility] [place] FAMRES Tm Blue) TELE CONSULT [id number] Medicat ion Request DONELL CUEVAS 09/[address] [place] [address] Raphael KENDALLB ([facility])(S cott [facility] FAMRES Tm Blue) [address] [place] [address] [employer] ([facility])(Sco tt [facility] FAMRES Tm Blue) TELE CONSULT [id number] biopsy result CICI SENA 09/[address] [place] [address] Raphael KENDALLB ([facility]S cott [facility] FAMRES Tm Blue) [address] [place] [address] Raphael KENDALLB ([facility])(Sco tt [facility] FAMRES Tm Blue) OUTPATIENT [id number] fu for diabete s....[phone] DONELL CUEVAS 10/08 Released w/o Limitations [address] [place] [address] [employer] ([facility]S cott [facility] FAMRES Tm Blue) [address] [place] [address] [employer] ([facility])(Saulo matology) OUTPATIENT [id number] SKIN NEOPLAS M BASAL CELL CARCINO MA ARM per NEGRO Gordon 10/09 Released w/o Limitations [address] [place] [address] [employer] ([facility])(D ermatol ogy) [address] [place] [address] [employer] ([facility])(Saulo matology) OUTPATIENT [id number] swollen incisio n on forearm NEGRO MUELLER 10/17 Released w/o Limitations [address] [place] [address] [employer] ([facility])(D ermatol ogy) [address] [place] [address] [employer] ([facility])(Saulo matology) OUTPATIENT [id number] Suture removal NEGRO MUELLER 10/22 Released w/o Limitations [address] [place] [address] Raphael KENDALLB ([facility])(D ermatol ogy) [address] [place] [address] [employer] ([facility]Sco tt [facility] FAMRES Tm Blue) TELE CONSULT [id number] Medicat ion Request DONELL CUEVASMARIAA 12/[address] [place] [address] Group Raphael FAIZAB ([facility])(S cott [facility] FAMRES Tm Blue) [facility] [employer] ([facility]Sco tt [facility] FAMRES Tm Blue) TELE CONSULT [id number] FY-Located within [facility] Room DONELL CUEVASMARIAA 01/01 [facility] Group Raphael FAIZAB ([facility]S cott [facility] FAMRES Tm Blue) [facility] Raphael FAIZAB ([facility])(Sco tt [facility] FAMRES Tm Blue) OUTPATIENT [id number] diabete s f/u/dis cuss labs/er low sugar visit ESTEBAN QUINTERO 01/29 Released w/o Limitations [facility] Raphael FAIZAB ([facility]S cott [facility] FAMRES Tm Blue) [facility] Raphael FAIZAB ([facility])(Occ upational Therapy) OUTPATIENT [id number] JOINT INSTABI LEONILA THOMAS 02/05 Released w/o Limitations [employer] ([facility])(O ccupati onal Therapy ) [facility] Medical Group [employer] ([facility])(Occ upational Therapy) OUTPATIENT [id number] JEFFREY SCHUSTER 02/08 Released w/o Limitations [facility] Medical Group [employer] ([facility])(O ccupati onal Therapy ) [facility] Medical Group [employer] ([facility])(Occ upational Therapy) OUTPATIENT [id number] ESTRELLITA GARCIA 02/11 Released w/o Limitations [employer] ([facility])(O ccupati onal Therapy ) [facility] [employer] ([facility])(Occ upational Therapy) OUTPATIENT [id number] LEONILA PENDLETON 02/13 Released w/o Limitations [facility] Medical Group [employer] ([facility])(O ccupati onal Therapy ) [facility] Medical Group [employer] ([facility])(Occ upational Therapy) OUTPATIENT [id number] ESTRELLITA GARCIA 02/15 Released w/o Limitations [facility] Medical Group [employer] ([facility])(O ccupati onal Therapy ) [address] [place] [address] Group [employer] ([facility])(Phy sical Therapy) OUTPATIENT [id number] JEFFREY SCHUSTER 02/18 Released w/o Limitations [facility] [employer] ([facility])(P hysical Therapy ) [address] [place] [address] [employer] ([facility])(Occ upational Therapy) OUTPATIENT [id number] JEFFREY SCHUSTER 02/20 Released w/o Limitations [facility] [employer] ([facility])(O ccupati onal Therapy ) [address] [place] [address] [employer] ([facility])(Occ upational Therapy) OUTPATIENT [id number] MAJODANIELITO RomeroDARRIAN 02/22 Released w/o Limitations [facility] [employer] ([facility])(O ccupati onal Therapy ) [address] [place] [address] [employer] ([facility])(Saulo matology) OUTPATIENT [id number] 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 R NEGRO MUELLER 02/25 Released w/o Limitations [facility] [employer] ([facility])(D ermatol ogy) [address] [place] [address] [employer] ([facility])(Occ upational Therapy) OUTPATIENT [id number] JEFFREY SCHUSTER 02/25 Released w/o Limitations [facility] [employer] ([facility])(O ccupati onal Therapy ) [address] [place] [address] [employer] ([facility])(Occ upational Therapy) OUTPATIENT [id number] LEONILA PENDLETON 03/19 Released w/o Limitations [facility] [employer] ([facility])(O ccupati onal Therapy ) [address] [place] [address] [employer] ([facility])(Sco tt [facility] FAMRES Tm Blue) TELE CONSULT [id number] RODOLFO Hughes 03/[address] [place] [address] [employer] ([facility])(S cott [facility] FAMRES Tm Blue) [address] [place] [address] [employer] ([facility])(Saulo matology) OUTPATIENT [id number] Atypica l squamou s left forearm , excisio n NEGRO MUELLER 03/28 Released w/o Limitations [facility] [employer] ([facility])(D ermatol ogy) [address] [place] [address] [employer] ([facility])(Occ upational Therapy) TELE CONSULT [id number] MRI results LEONILA PENDLETON Aubrey 04/[address] [place] [address] Group Raphael SALCIDO ([facility])(O ccupati onal Therapy ) [address] [place] [address] Raphael SALCIDO [facility])(Sco tt Internal Medicine Tm) OUTPATIENT [id number] suture removal ANNA GUTIERREZ CPT 04/11 Released w/o Limitations [facility] Medical Group Raphael SALCIDO ([facility])(S cott Interna l Medicin e Tm) Procedures Combined list of: 1) Procedures from Department of Veterans Affairs facilities going back up to [facility] 18 months, not all VA non-surgical procedures are included; 2) All procedures from the Department of Defense facilities. Procedure Procedure Type Code Date Perfomer Comments Sourc e No data available for this section Ambul[facility] ry Pharmacy HANDLING AND/OR CONVEYANCE OF SPECIMEN FOR TRANSFER FROM THE OFFICE TO A LABORATORY 009 DoD OCCUPATIONAL THERAPY RE-EVALUATION 009 DoD HANDLING AND/OR CONVEYANCE OF SPECIMEN FOR TRANSFER FROM THE OFFICE TO A LABORATORY 009 DoD APPLICATION OF A MODALITY TO 1 OR MORE AREAS; IONTOPHORESIS, EACH 15 MINUTES 009 DoD APPLICATION OF A MODALITY TO 1 OR MORE AREAS; IONTOPHORESIS, EACH 15 MINUTES 009 DoD APPLICATION OF A MODALITY TO 1 OR MORE AREAS; IONTOPHORESIS, EACH 15 MINUTES 009 DoD APPLICATION OF A MODALITY TO 1 OR MORE AREAS; IONTOPHORESIS, EACH 15 MINUTES 009 DoD APPLICATION OF A MODALITY TO 1 OR MORE AREAS; IONTOPHORESIS, EACH 15 MINUTES 009 DoD APPLICATION OF A MODALITY TO 1 OR MORE AREAS; IONTOPHORESIS, EACH 15 MINUTES 009 DoD APPLICATION OF A MODALITY TO 1 OR MORE AREAS; IONTOPHORESIS, EACH 15 MINUTES 009 DoD APPLICATION OF A MODALITY TO 1 OR MORE AREAS; IONTOPHORESIS, EACH 15 MINUTES 009 DoD OCCUPATIONAL THERAPY EVALUATION 009 DoD POSTOPERATIVE FOLLOW-UP VISIT, NORMALLY INCLUDED IN THE SURGICAL PACKAGE, INDICATE THAT EVALUATION & MANAGEMENT SERVICE WAS PERFORMED DURING A POSTOPERATIVE PERIOD REASON RELATED ORIGINAL PROCEDURE 009 DoD POSTOPERATIVE FOLLOW-UP VISIT, NORMALLY INCLUDED IN THE SURGICAL PACKAGE, INDICATE THAT EVALUATION & MANAGEMENT SERVICE WAS PERFORMED DURING A POSTOPERATIVE PERIOD REASON RELATED ORIGINAL PROCEDURE 009 DoD EXCISION, MALIGNANT LESION INCLUDING MARGINS, TRUNK, ARMS, OR LEGS;EXCISED DIAMETER 2.1 TO 3.0 CM [facility] BIOPSY OF SKIN, SUBCUTANEOUS TISSUE AND/OR MUCOUS MEMBRANE (INCLUDING SIMPLE CLOSURE), UNLESS OTHERWISE LISTED; SINGLE LESION [facility] SHAVING OF EPIDERMAL OR DERMAL LESION, SINGLE LESION, TRUNK, ARMS OR LEGS; LESION DIAMETER 0.6 TO 1.0 CM [facility] OSTEOPATHIC MANIPULATIVE TREATMENT (OMT); 3-4 BODY REGIONS INVOLVED [facility] DESTRUCTION (EG, LASER SURGERY, ELECTROSURGERY, CRYOSURGERY, CHEMOSURGERY, SURGICAL CURETTEMENT), OF BENIGN LESIONS OTHER THAN SKIN TAGS OR CUTANEOUS VASCULAR PROLIFERATIVE LESIONS; UP TO 14 LESIONS DoD ELECTROCARDIOGRAM, ROUTINE ECG WITH AT LEAST 12 LEADS; WITH INTERPRETATION AND REPORT DoD NONINVASIVE EAR OR PULSE OXIMETRY FOR OXYGEN SATURATION; SINGLE DETERMINATION [facility] EXCISION, BENIGN LESION INCLUDING MARGINS, EXCEPT SKIN TAG (UNLESS LISTED ELSEWHERE), TRUNK, ARMS OR LEGS; EXCISED DIAMETER 0.6 TO 1.0 CM DoD ELECTROCARDIOGRAM, ROUTINE ECG WITH AT LEAST 12 LEADS; INTERPRETATION AND REPORT ONLY DoD ELECTROCARDIOGRAM, ROUTINE ECG WITH AT LEAST 12 LEADS; INTERPRETATION AND REPORT ONLY DoD ELECTROCARDIOGRAM, ROUTINE ECG WITH AT LEAST 12 LEADS; INTERPRETATION AND REPORT ONLY DoD SEDATION WITH OR WITHOUT ANALGESIA (CONSCIOUS SEDATION); INTRAVENOUS, INTRAMUSCULAR OR INHALATION DoD ELECTROCARDIOGRAM, ROUTINE ECG WITH AT LEAST 12 LEADS; INTERPRETATION AND REPORT ONLY RELEASE OF CARPAL TUNNEL 995 [facility] Physician Supervised Specimen Handling / Transfer: Office To Lab Physician Supervised Specimen Handling / Transfer: Office To Lab [id number] NEGRO MUELLER [facility] Complex Repair Of Wound Forearms 2.6 to 7.5 cm Complex Repair Of Wound Forearms 2.6 to 7.5 cm [id number] NEGRO MUELLER [facility] Excision Of Lesion Arms Malignant 1.1 to 2cm Excision Of Lesion Arms Malignant 1.1 to 2cm 32126 NEGRO MUELLER [facility] Occupational Therapy Re-Evaluation Occupational Therapy Re-Evaluation 93630 LEONILA PENDLETON [facility] Modalities Iontophoresis Modalities Iontophoresis 43959 JEFFREY SCHUSTER Electrodes (e.g., apnea monitor), per pair JEFFREY SCHUSTER Physician Supervised Specimen Handling / Transfer: Office To Lab Physician Supervised Specimen Handling / Transfer: Office To Lab 83430 NEGRO MUELLER Biopsy Skin Biopsy Skin 26199 NEGRO MUELLER Destruction Of Premalignant Lesion By Any Method 15 Or More NEGRO MUELLER Electrodes (e.g., apnea monitor), per pair MAJOJUANITO Modalities Iontophoresis Modalities Iontophoresis 44279 JUANITO KASPER Electrodes (e.g., apnea monitor), per pair JEFFREY SCHUSTER Modalities Iontophoresis Modalities Iontophoresis 07622 JEFFREY SCHUSTER Electrodes (e.g., apnea monitor), per pair JEFFREY SCHUSTER Modalities Iontophoresis Modalities Iontophoresis 68965 JEFFREY SCHUSTER Electrodes (e.g., apnea monitor), per pair JOSEESTRELLITA Modalities Iontophoresis Modalities Iontophoresis 04714 JOSEESTRELLITA Electrodes (e.g., apnea monitor), per pair JOSEESTRELLITA Modalities Iontophoresis Modalities Iontophoresis 98973 JOSE ESTRELLITAUNIQUE Barroso Modalities Iontophoresis Modalities Iontophoresis 71613 JEFFREY SCHUSTER Exercise equipment LEONILA PENDLETON Occupational Therapy Evaluation Occupational Therapy Evaluation 31700 LEONILA PENDLETON Layer Closure Of Wound Trunk 12.6 to 20.0 cm Layer Closure Of Wound Trunk 12.6 to 20.0 cm 73459 NEGRO MUELLER Excision Of Lesion Trunk Malignant 2.1 to 3cm Excision Of Lesion Trunk Malignant 2.1 to 3cm 77998 009 NEGRO MUELLER [facility] Destruction Of Benign Lesion By Cryosurgery 009 CICI SENA [facility] Biopsy Skin Biopsy Skin 66261 009 CICI SENA [facility] Shaving Of Lesion Trunk .6 to 1cm Shaving Of Lesion Trunk .6 to 1cm [id number] CHRIS JONHS [facility] Osteopathic Manip Treatment (OMT) 3-4 Body Regions Involved Osteopathic Manip Treatment (OMT) 3-4 Body Regions Involved [id number] NOAH NOONAN [facility] Dermatological Surgery Cryotherapy Dermatological Surgery Cryotherapy 52906 007 SKINNY GODWIN [facility] Electrocardiogram Electrocardiogram 67815 08/25 005 MAVIS, ERIKA [facility] Social History Combined list of available smoking, tobacco, and other social history from Department of Defense and Veterans Affairs facilities. Social History Type Response Date Comment Sourc e Male 11/04/2022 Ambulatory Pha rmacy Sexual Orientation Ambula tory Pharmacy Gender identity Ambulator y Pharmacy This section is an empty soc ial history section. DoD Assessment and Plan Combined list of future care activities from Department of Defense and Veterans Affairs facilities (e.g., assessment and plan notes, appointments, orders, and referrals). Additional future care activities may be listed in the Plan of Care section. Result Assessment and Plan Date Source Assessment and Plan No data available for this section 09/26/2024 Ambulatory Pharmacy Functional Status Combined list of recent functional and cognitive assessments recorded at Department of Defense and Veterans Affairs (VA).VA Functional [place] Measurement (FIM) Scale: 1 = Total Assistance (Subject = 0% +), 2 = Maximal Assistance (Subject = 25% +), 3 = Moderate Assistance (Subject = 50% +), 4 = Minimal Assistance (Subject = 75% +), 5 = Supervision, 6 = Modified [place] (Device), 7 = Complete [place] (Timely, Safely). Assessment Date/Time Source Assessment Type Assessment Skill Assessment Score Assessment Details No data available for this section
[2024-09-26 15:52] LABS: Alanine Aminotransferase 20 U/L (6-50); Albumin Level 4.1 g/dL (3.5-5.1); Alkaline Phosphatase 56 U/L (38-126); Anion Gap 9 mmol/L (4-12); Aspartate Amino Transferase 25 U/L (17-59); Bilirubin,Total 0.6 mg/dL (0.2-1.3); Blood Urea Nitrogen 32 mg/dL (9-20); Calcium 9.2 mg/dL (8.4-10.2); Carbon Dioxide 28 mmol/L (22-30); Chloride 100 mmol/L (98-107); Estimated Glomerular Filt Rate 44; Glucose 117 mg/dL (65-110); Potassium 4.8 mmol/L (3.4-5.0); Sodium 137 mmol/L (137-145)
[2024-09-26 15:59] LABS: Immunoglobulin A 154 mg/dL (70-400); Immunoglobulin G 962 mg/dL (700-1600); Immunoglobulin M 68 mg/dL (40-230)
[2024-09-28 06:09] LABS: Protein, Total 6.7 g/dL (6.1-8.1)
[2024-09-28 20:18] LABS: Albumin 4.1 g/dL (3.8-4.8); Alpha 1 Globulin 0.3 g/dL (0.2-0.3); Alpha 2 Globulin 0.7 g/dL (0.5-0.9); Beta 1 Globulin 0.4 g/dL (0.4-0.6); Gamma Globulin 0.9 g/dL (0.8-1.7)
== END 2024-09-26 13:45 | disposition home or self-care (01) ==
LOC: ANHLAB 13:45
PROVIDERS: PCP Internal Medicine; Visit Provider Internal Medicine Hematology & Oncology
DX: D72.9 Disorder of white blood cells, unspecified (principal)
CPT/HCPCS: 36415; 80053; 82784; 83883; 84155; 84165; 85025

== ENCOUNTER 2024-10-09 09:00 | Outpatient (CLI) | payer MEDICARE, OTHER, SELFPAY ==
--- OUTSIDE RECORDS SUMMARY | 2024-10-09 09:25 | XMS_ITS | Clinical Summary ---
Author Organization [facility] [address] Address [address] [place] [address] Care Team Providers Care Mission Planner Name Role Phone CassidynichoyaritzalizzetteHernan Tristen Primary Care Provider Allergies No known active [...] 1,000 mcg by mouth daily. Active Fish Oil-[place]-3 Fatty Acids 300-500 mg Capsule Take by mouth. Active latanoprost (XALATAN) 0.005 % solution 1 Drop daily at bedtime. Active hydrALAZINE (APRESOLINE) 10 mg tablet Take 10 mg by mouth 4 times daily. Active Active Problems No known active problems Encounters Date Type Department Care Team Description 10/02/2024 11:30 AM NETWORKS SOFTWARE CONSULTANT Office Visit [facility] - [address] [place] [address] Samir Fritz MD Plasma cell disorder (Primary Dx) 09/27/2024 Orders Only [facility] [address] [place] [address] Samir Fritz MD 09/20/2024 External Device Data ST[facility] ABSTRACTION Provider, [...] on file Legal Sex Male 2:03 PM NETWORKS SOFTWARE CONSULTANT Gender Identity Not on file Sexual Orientation Not on file Last Filed Vital Signs Vital Sign Reading Time Taken Comments Blood Pressure 125/63 10/02/2024 11:29 AM NETWORKS SOFTWARE CONSULTANT Pulse 59 10/02/2024 11:29 AM NETWORKS SOFTWARE CONSULTANT Temperature 36.6 C (97.9 F) 10/02/2024 11:29 AM NETWORKS SOFTWARE CONSULTANT Respiratory Rate 15 10/02/2024 11:29 AM NETWORKS SOFTWARE CONSULTANT Oxygen Saturation 93% 10/02/2024 11:29 AM NETWORKS SOFTWARE CONSULTANT Inhaled Oxygen Concentration - - Weight 85.5 kg (188 lb 9.6 oz) 10/02/2024 11:29 AM NETWORKS SOFTWARE CONSULTANT Height 182.9 cm (6') 10/28/2022 10:21 AM NETWORKS SOFTWARE CONSULTANT Body Mass Index 25.58 10/28/2022 10:21 AM NETWORKS SOFTWARE CONSULTANT Plan of Treatment Upcoming Encounters Date Type Department Care Team (Late st Contact Info) Description 10/02/2025 11:30 AM NETWORKS SOFTWARE CONSULTANT Office Visit [facility] - [place] [facility] [address] [place] [address] Samir Fritz MD [address] [facility] [address] [place] [address] Health Maintenance Due Date Last [...] MONTHS 09/15/20242023, 09/15/2023, 03/09/2023, Additional history exists Procedures Procedure Name Priority Date/Time Associated Diagnosis Comments COMPREHENSIVE METABOLIC PANEL Routine 09/26/2024 1:03 PM NETWORKS SOFTWARE CONSULTANT CBC WITH DIFFERENTIAL Routine 09/26/2024 7:45 AM NETWORKS SOFTWARE CONSULTANT from Last 3 Months Results * COMPREHENSIVE METABOLIC PANEL (09/26/2024 1:03 PM NETWORKS SOFTWARE CONSULTANT) Blood Samir Fritz MD CHEMISTRY ORDERABLES Final Resu lt * CBC WITH DIFFERENTIAL (09/26/2024 7:45 AM NETWORKS SOFTWARE CONSULTANT) Blood us Samir Fritz MD HEMATOLOGY ORDERABLES Final Res ult from Last 3 Months Insurance MEDICARE PART A AND B [employer] Care Teams Mission Planner Relationship Specialty Start Date End Date eHrnan Posey DO [facility] [address] [place] [address] PCP - General Internal Medicine 10/28/22
--- OUTSIDE RECORDS SUMMARY | 2024-10-09 09:25 | XMS_ITS | Referral Summary ---
Author Organization [facility] Address [address] [place] [address] Care Team Providers Care Hand Knitter Name Role Phone Hernan Posey DO Primary Care Provider +1- [phone] Allergies No known active allergies Medications atorvastatin [...] neck 03/30/2022 Coronary artery disease invo lving [place] coronary artery of [place] heart without angina pectoris 09/29/2018 History of [...] on file Legal Sex Male 2:56 AM BUSINESS SUPERVISOR Gender Identity Not on file Sexual Orientation Not on file Last Filed Vital Signs Vital Sign Reading Time Taken Comments Blood Pressure 112/58 10/14/2023 10:15 AM BUSINESS SUPERVISOR Pulse 73 10/14/2023 10:15 AM BUSINESS SUPERVISOR Temperature 36.5 C (97.7 F) 07/09/2019 5:15 PM BUSINESS SUPERVISOR Respiratory Rate 18 07/09/2019 9:30 PM BUSINESS SUPERVISOR Oxygen Saturation 94% 10/14/2023 10:15 AM BUSINESS SUPERVISOR Inhaled Oxygen Concentration - - Weight 83 kg (183 lb) 10/14/2023 10:15 AM BUSINESS SUPERVISOR Height 182.9 cm (6') 10/14/2023 10:15 AM BUSINESS SUPERVISOR Body Mass Index 24.82 10/14/2023 10:15 AM BUSINESS SUPERVISOR Plan of Treatment Not on file Insurance MEDICARE FOR LIFE MEDICARE [facility] Address: [address] [address] FOR LIFE MEDICARE [facility] FOR LIFE Care Teams Hand Knitter Relationship Specialty Start Date End Date Hernan Posey DO PCP - General Internal Medicine 09/29/18
--- OUTSIDE RECORDS SUMMARY | 2024-10-09 09:25 | XMS_ITS | Clinical Summary ---
Author Organization [facility] Address [address] [place] [address] Care Team Providers Care Publicity Person Name Role Phone Hernan Posey DO Primary Care Provider +1- [phone] Allergies No known active allergies Medications atorvastatin [...] neck 03/30/2022 Coronary artery disease invo lving [place] coronary artery of [place] heart without angina pectoris 09/29/2018 History of [...] on file Legal Sex Male 2:56 AM DRUGLESS PHYSICIAN Gender Identity Not on file Sexual Orientation Not on file Obstetrics History Last Filed Vital Signs Vital Sign Reading Time Taken Comments Blood Pressure 112/58 10/14/2023 10:15 AM DRUGLESS PHYSICIAN Pulse 73 10/14/2023 10:15 AM DRUGLESS PHYSICIAN Temperature 36.5 C (97.7 F) 07/09/2019 5:15 PM DRUGLESS PHYSICIAN Respiratory Rate 18 07/09/2019 9:30 PM DRUGLESS PHYSICIAN Oxygen Saturation 94% 10/14/2023 10:15 AM DRUGLESS PHYSICIAN Inhaled Oxygen Concentration - - Weight 83 kg (183 lb) 10/14/2023 10:15 AM DRUGLESS PHYSICIAN Height 182.9 cm (6') 10/14/2023 10:15 AM DRUGLESS PHYSICIAN Body Mass Index 24.82 10/14/2023 10:15 AM DRUGLESS PHYSICIAN Plan of Treatment Health Maintenance Due Date Last Done Comments Depression Screening 1945 Fall Risk Assessment 1945 DTaP/Tdap/Td Vaccine (1 - Tdap) 02/15/1955 Hepatitis B Screening 02/15/1962 Zoster Vaccine (1 of 2) 02/15/1994 Abdominal Aortic Aneurysm (A AA) Screen 02/15/2009 Well Visit 65+ 02/15/2009 Influenza Vaccine (#1) 2024 9, 06/20/2018, 06/28/2017, Additional history exists Pneumococcal vaccine 65+ Completed 07/15/2016, 02/2015 [place] [address] [employer] MEDICARE FOR LIFE MEDICARE FOR LIFE Care Teams Publicity Person Relationship Specialty Start Date End Date Hernan Posey DO PCP - General Internal Medicine 09/29/18
--- OUTSIDE RECORDS SUMMARY | 2024-10-09 09:25 | XMS_ITS | Continuity of Care Document ---
Author Name [facility] Organization [facility] Care Team Providers Care Ribbon Weaver Name Role Phone [facility] Unavailable Unavailable Problems [...] and may consider imaging at that time. [facility] coronary artery disease Active Condition DoD foot [...] ss.May impair driving. For the eye. 09/21/2024 [id number] 4 2023 15 [employer] Raphael SALCIDO [place] brimonidine -timolol 0.2%-0.5% eye drops [5mL] = [...] (doxycyclin e hyclate), 20 MG, TABLET, ORAL, Visual Revenue, 100 ea. BOTTLE Active [id number] 4 2023 28 Pharmac y Data Transac tion Service Facilit y ezetimibe (U/D) 10 MG ORAL TAB Take or use exactly as directed .Obtain advice for OTCs.[place] ck with your doctor before becoming . Active 10/24/2024 [id number] 4 2023 90 [employer] Raphael SALCIDO ([facility] ezetimibe 10 mg tablet See Instruct ions, [...] use exactly as directed . Active 01/17/2025 [id number] 4 [address] [place] [address] Raphael KENDALL ([facility] Levothyroxi ne Sodium ([place]) Tablet 100 mcg Oral Take on empty stomach. Take with plenty of water.Be careful if taking OTCs.Mark e or use exactly as directed . 07/25/2024 [id number] 3 [address] [place] [address] Raphael SALCIDO ([facility] lisinopril 10 mg tablet 10 mg, Oral, [...] your doctor before becoming . Active 01/17/2025 [id number] 4 2023 180 [facility] Raphael SALCIDO ([facility] sildenafil 100 mg tablet 100 mg, Oral, [...] Reported Comments Source NO OUTPUT FOR NCID [id number] Drug allergy (disorder) active 05/09/[address] [place] [address] Raphael KENDALL ([facility] Immunizations Combined list of available immunizations from the Department of Defense and Veterans Affairs facilities. Immunization Series Date Given Administered By Site Reaction Lot Number CVX Code Drug Accounting Director Status Comments Source zoster vaccine live 2013 121 [employer] complet ed zoster vaccine live 07/05/14 Given Ambulat ory Pharmac y influenza virus vaccine,split 2003 bebezLef t Arm [id number] 15 sanofi pasteur complet ed influenza virus vaccine,s plit 08/19/04 Given Ambulat ory Pharmac y influenza virus vaccine,split 2003 [id number] sanofi pasteur complet ed influenza virus vaccine,s plit 08/19/04 Given Ambulat ory Pharmac y influenza virus vaccine, split virus (incl. purified surface antigen)-reti red CODE 1 2003 Unknown, Provider [id number] Sanofi Pasteur (PMC) complet ed influenza virus vaccine, split virus (incl. purified surface antigen)- retired CODE DoD Encounters Combined list of: 1) Encounters from Department of Veterans Affairs facilities going backup to the last 18 months, not all VA inpatient encounters are included; 2) Encounters from the Department of Defense facilities going backup to 280 months. Location Location Details Encounter Type Encounter Number Reason For Visit Attending Provider ADM Date DC Date Status Disposition Source [address] [place] [address] Raphael SALCIDO [facility] [place]Sco [place] [facility] FAMRES Tm Blue) TELE CONSULT [id number] Med refill and pos labs MANUEL RUIZ 03/[address] [place] [address] Raphael SALCIDO [facility] [place]S cott [facility] Tm Blue) [address] [place] [address] Raphael Ulysses [facility] [place]Sco tt [facility] FAM[facility] Tm Blue) TELE CONSULT [id number] lab results SKINNY GODWIN 04/[address] [place] [address] Raphael Ulysses [facility] [place]S cott [facility] Tm Blue) [address] [place] [address] Raphael SALCIDO [facility] [place]Sco tt [facility] FAMRES Tm Blue) TELE CONSULT [id number] lab results SKINNY GODWIN 04/[address] [place] [address] Raphael SALCIDO [facility] [place]S cott [facility] Tm Blue) [address] [place] [address] Raphael Ulysses [facility] [place]Sco tt [facility] FAM[facility] Tm Blue) OUTPATIENT [id number] f/u labs dibetic ZEKE VANN 05/11 Released w/o Limitations [address] [place] [address] Raphael SALCIDO [facility] [place]S cott [facility] Tm Blue) [address] [place] [address] Raphael SALCIDO [facility] [place]Sco tt [facility] FAMRES Tm Blue) TELE CONSULT [id number] accu checks ZEKE VANN 05/[address] [place] [address] Raphael SALCIDO [facility] [place]S cott [facility] FAM[facility] Tm Blue) [address] [place] [address] [employer] ([facility]Sco tt [facility] Tm Blue) TELE CONSULT [id number] med refSKINNY Harman 06/[address] [place] [address] Group Raphael KENDALLB ([facility]S cott OF FAMRES Tm Blue) [address] [place] [address] Raphael KENDALLB ([facility]Sco tt [facility] Tm Blue) TELE CONSULT [id number] med refSKINNY Harman 06/[address] [place] [address] Group Raphael KENDALLB ([facility]S cott [facility] Tm Blue) [address] [place] [address] [employer] [facility]Sco tt [facility] FAMRES Tm Blue) OUTPATIENT [id number] f/u on heart conditi on and diabeti es SKINNY GODWIN 08/11 Released w/o Limitations [address] [place] [address] Raphael KENDALLB ([facility]S cott [facility] Tm Blue) [address] [place] [address] Raphael KENDALLB ([facility]Car diology Rs (Mtf)) OUTPATIENT [id number] Cardiac stent - Feb 2003 @ [facility] 08/25 Released w/o Limitations [address] [place] [address] [employer] ([facility]C ardiolo gy Rs (Mtf)) [address] [place] [address] [employer] ([facility]Car diology Rs (Mtf)) OUTPATIENT [id number] go over lab work, [facility] 09/29 Released w/o Limitations [address] [place] [address] [employer] ([facility]C ardiolo gy Rs (Mtf)) [address] [place] [address] [employer] ([facility]Sco tt [facility] FAM[facility] Tm Blue) OUTPATIENT [id number] 60 yr old phys/rt foot pain KRISSY HUBBARD 10/12 Released w/o Limitations [address] [place] [address] [employer] ([facility]S cott [facility] FAM[facility] Tm Blue) [address] [place] [address] [employer] ([facility]Car diology Rs (Mtf)) OUTPATIENT [id number] f/u [facility] 12/22 Released w/o Limitations [address] [place] [address] [employer] ([facility]C ardiolo gy Rs (Mtf)) [address] [place] [address] [employer] ([facility]Sco tt [facility] Tm Blue) TELE CONSULT [id number] Med RefSKINNY Harman 01/[address] [place] [address] Group Raphael FAIZAUlysses ([facility]S cott [facility] Tm Blue) [address] [place] [address] Raphael FAIZAB ([facility]Car diologsee Rs ([facility])) OUTPATIENT [id number] f/u ABILIO MOLINA 01/19 Released w/o Limitations [address] [place] [address] Raphael FAIZAUlysses ([facility])(Ricky xie Rs ([facility])) [facility] Medical [facility] Raphael FAIZAB ([facility]Sco tt [facility] Fam Res Tm Green) TELE CONSULT [id number] Med Refill KARLIE KNOX 03/[address] [place] [address] Group Raphael FAIZAUlysses ([facility]S cott [facility] Fam Res Tm Green) [address] [place] [address] Raphael FAIZAUlysses [facility] [place]Sco tt [facility] Fam Res Tm Green) OUTPATIENT [id number] f/u SKINNY Carter 04/23 Released w/o Limitations [address] [place] [address] Raphael FAIZAUlysses ([facility]S cott [facility] Fam Res Tm Green) [facility] Medical [facility] Raphael FAIZAB ([facility]Sco tt [facility] FAM[facility] Tm Blue) TELE CONSULT [id number] Med SKINNY Mejia 05/[address] [place] [address] Group Raphael FAIZAUlysses ([facility]S cott [facility] FAM[facility] Tm Blue) [address] [place] [address] Raphael FAIZAB ([facility]Sco tt [facility] Fam Res Tm Green) TELE CONSULT [id number] Med refill SKINNY GODWIN 07/15 [facility] Raphael FAIZAUlysses ([facility]S cott [facility] Fam Res Tm Green) [facility] Raphael FAIZAB ([facility]co tt [facility] Fam Res Tm Green) OUTPATIENT [id number] lower back pain GRAND Matthew CHOI 09/06 Released w/o Limitations [address] [place] [address] Group Raphael FAIZAB ([facility]S cott [facility] Fam Res Tm Green) [address] [place] [address] Raphael FAIZAB ([facility]Sco tt [facility] Fam Res Tm Green) TELE CONSULT [id number] Med RefSKINNY Harman 10/11 [facility]hael KENDALLB ([facility]S cott [facility] Fam Res Tm Green) [address] [place] [address] [employer] ([facility]Sco tt [facility] Fam Res Tm Green) TELE CONSULT [id number] SKINNY Mejia 10/20 [facility]hael KENDALLB ([facility]S cott OF Fam Res Tm Green) [facility] [employer] ([facility]Sco tt [facility] Fam Res Tm Green) TELE CONSULT [id number] SKINNY Mclean 11/04 [facility] KENDALLB ([facility]S cott OF Fam Res Tm Green) [facility] [employer] ([facility]Sco tt [facility] Fam Res Tm Green) OUTPATIENT [id number] F/U eval of DM/SKINNY Topete 11/19 Released w/o Limitations [facility] Raphael KENDALLB ([facility]S cott OF Fam Res Tm Green) [facility]hael KENDALLB ([facility]Sco tt [facility] Fam Res Tm Green) TELE CONSULT [id number] SKINNY Mclean 12/13 [facility]hael KENDALLB ([facility]S cott OF Fam Res Tm Green) [facility]hael KENDALLB ([facility]Sco tt [facility] Fam Res Tm Green) TELE CONSULT [id number] SKINNY Mclean 04/19 [facility]hael KENDALLB ([facility]S cott OF Fam Res Tm Green) [facility] Raphael KENDALLB ([facility]Sco tt [facility] Fam Res Tm Green) TELE CONSULT [id number] SKINNY Mclean 05/06 [facility]hael KENDALLB ([facility]S cott OF Fam Res Tm Green) [facility] [employer] ([facility]Sco tt [facility] Fam Res Tm Green) OUTPATIENT [id number] F/U DIABETE SKINNY HAIRSTON 05/30 Released w/o Limitations [facility] [employer] ([facility]S cott OF Fam Res Tm Green[facility] [employer] ([facility]Sco tt [facility] Fam Res Tm Green) TELE CONSULT [id number] Call-SKINNY Cartagena 06/[address] [place] [address] [facility] Raphael KENDALLB ([facility]S cott [facility] Fam Res Tm Green) [address] [place] [address] Raphael KENDALLB ([facility]Sco tt [facility] Fam Res Tm Green) TELE CONSULT [id number] SKINNY Mclean 06/[address] [place] [address] Raphael KENDALLB ([facility]S cott [facility] Fam Res Tm Green) [address] [place] [address] Raphael KENDALLB [facility]Sco tt [facility] Fam Res Tm Green) OUTPATIENT [id number] [phone] pain left side hip radiati ng to the leg SHAISTA NOAH Cristy 09/29 Released w/o Limitations [address] [place] [address] Raphael KENDALLB ([facility]S cott [facility] Fam Res Tm Green) [address] [place] [address] Raphael KENDALLB ([facility]Sco tt [facility] Fam Res Tm Green) TELE CONSULT [id number] Med Refill SKINNY GODWIN 10/[address] [place] [address] Raphael SALCIDO ([facility]S cott [facility] Fam Res Tm Green) [address] [place] [address] Raphael SALCIDO ([facility]Fam shahbaz Practice Non-GME FHI1) OUTPATIENT [id number] LOWER BACK PAIN GRAHAM WOODY 10/05 Released w/o Limitations [address] [place] [address] Raphael SALCIDO ([facility]F amily Practic e Non-GME FHI1) [address] [place] [address] Raphael SALCIDO ([facility]Sco tt [facility] Fam Res Tm Green) OUTPATIENT [id number] f/u back pain SKINNY GODWIN 10/07 Released w/o Limitations [facility] Medical [facility] Raphael SALCIDO ([facility]S cott [facility] Fam Res Tm Green) [facility] Medical [facility] Raphael KENDALLB ([facility]Sco tt [facility] Fam Res Tm Green) TELE CONSULT [id number] Med Refill SKINNY GODWIN 01/01 [facility] KENDALLB ([facility]S cott [facility] Fam Res Tm Green) [address] [place] [address] Raphael KENDALLB ([facility]Sco tt [facility] Fam Res Tm Green) TELE CONSULT [id number] Med Refill SKINNY GODWIN 01/18 [facility] Medical [facility] Raphael SALCIDO ([facility]S cott [facility] Fam Res Tm Green) [address] [place] [address] Raphael KENDALLB [facility]Sco tt [facility] Fam Res Tm Green) OUTPATIENT [id number] f/u DM [phone] SKINNY GODWIN 02/05 Released w/o Limitations [address] [place] [address] Raphael KENDALLB ([facility]S cott [facility] Fam Res Tm Green) [address] [place] [address] Raphael FAIZAB ([facility]Sco tt [facility] FAMRES Tm Blue) OUTPATIENT [id number] F/U SHERRONAL ESTEBAN CORTES 03/29 Released w/o Limitations [address] [place] [address] Raphael FAIZAB ([facility]S cott [facility] FAMRES Tm Blue) [address] [place] [address] Raphael FAIZAB ([facility]Sco tt [facility] FAMRES Tm Blue) TELE CONSULT [id number] Medicat ion Renewal DONELL CUEVAS 05/[address] [place] [address] Raphael FAIZAB [facility] [place]S cott [facility] FAMRES Tm Blue) [address] [place] [address] Raphael FAIZAB [facility] [place]Sco tt [facility] FAMRES Tm Blue) TELE CONSULT [id number] Medicat ion Request DONELL CUEVAS 07/[address] [place] [address] Raphael FAIZAB ([facility]S cott [facility] FAMRES Tm Blue) [address] [place] [address] Raphael FAIZAB [facility] [place]Sco tt [facility] Fam Res Tm Green) OUTPATIENT [id number] growth on upper back, tender - [phone] CHRIS JOHNS 09/12 Released w/o Limitations [address] [place] [address] Raphael FAIZAB [facility] [place] cott [facility] Fam Res Tm Green) [address] [place] [address] Raphael FAIZAB [facility] [place]Sco tt [facility] FAMRES Tm Blue) OUTPATIENT [id number] MINOR PROCEDU RES-sha ve biopsy X2 CICI SENA 09/18 Released w/o Limitations [address] [place] [address] Raphael KENDALLB ([facility]S cott [facility] FAMRES Tm Blue) [address] [place] [address] [employer] [facility] [place]Sco tt [facility] FAMRES Tm Blue) TELE CONSULT [id number] F/U Biopsy Results ... CICI SENA 09/[address] [place] [address] Raphael SALCIDO ([facility]S cott [facility] FAMRES Tm Blue) [address] [place] [address] [employer] ([facility]Sco tt [facility] FAMRES Tm Blue) OUTPATIENT [id number] Suture PEPITO HUI S 09/27 Released w/o Limitations [address] [place] [address] [employer] ([facility]S cott [facility] FAMRES Tm Blue) [address] [place] [address] [employer] [facility] [place]Sco tt [facility] FAMRES Tm Blue) TELE CONSULT [id number] Medicat ion Request DONELL CUEVAS 09/[address] [place] [address] Raphael KENDALLB [facility] [place]S cott [facility] FAMRES Tm Blue) [address] [place] [address] [employer] [facility] [place]Sco tt [facility] FAMRES Tm Blue) TELE CONSULT [id number] biopsy result CICI SENA 09/[address] [place] [address] Raphael KENDALLB [facility] [place]S cott [facility] FAMRES Tm Blue) [address] [place] [address] [facility]hael [facility]ALLB [facility] [place]Sco tt [facility] FAMRES Tm Blue) OUTPATIENT [id number] fu for diabete s....[phone] DONELL CUEVAS 10/08 Released w/o Limitations [address] [place] [address] [employer] KENDALLB ([facility]S cott [facility] FAMRES Tm Blue) [address] [place] [address] [employer] [facility] [place]Saulo matology) OUTPATIENT [id number] SKIN NEOPLAS M BASAL CELL CARCINO MA ARM per NEGRO Gordon 10/09 Released w/o Limitations [address] [place] [address] [employer] ([facility]D ermatol ogy) [address] [place] [address] [employer]hael K[employer]ALLB ([facility]) OUTPATIENT [id number] swollen incisio n on forearm NEGRO MUELLER 10/17 Released w/o Limitations [address] [place] [address] [employer] ([facility]D ermatol ogy) [address] [place] [address] [facility]hael KENDALLB [facility] [place]Saulo matology) OUTPATIENT [id number] Suture removal NEGRO MUELLER 10/22 Released w/o Limitations [address] [place] [address] [employer] ([facility]D ermatol ogy) [address] [place] [address] [employer] [facility] [place]Sco tt [facility] FAMRES Tm Blue) TELE CONSULT [id number] Medicat ion Request DONELL CUEVAS 12/[address] [place] [address] [employer] SALC[employer] ([facility]S cott [facility] FAMRES Tm Blue) [employer] ([facility]Sco tt [facility] FAMRES Tm Blue) TELE CONSULT [id number] [facility] Room DONELL CUEVAS 01/01 Medical [employer] ([facility]S cott [facility] FAMRES Tm Blue) Medical [facility] [employer] ([facility]Sco tt [facility] FAMRES Tm Blue) OUTPATIENT [id number] diabete s f/u/dis cuss labs/er low sugar visit ESTEBAN QUINTERO 01/29 Released w/o Limitations [employer] ([facility]S cott [facility] FAMRES Tm Blue) [employer] ([facility]Occ upational Therapy) OUTPATIENT [id number] JOINT INSTABI LEONILA THOMAS 02/05 Released w/o Limitations [employer] ([facility]O ccupati onal Therapy ) [employer] ([facility]Occ upational Therapy) OUTPATIENT [id number] JEFFREY SCHUSTER 02/08 Released w/o Limitations [employer] [place] [place] [facility] [employer] [place] [place]) OUTPATIENT [id number] ESTRELLITA GARCIA 02/11 Released w/o Limitations [employer] [place] [place] [facility] [employer] [place] [place]) OUTPATIENT [id number] LEONILA PENDLETON 02/13 Released w/o Limitations [employer] [place] [place] [facility] [facility] [facility] [employer] [place] OUTPATIENT [id number] ESTRELLITA GARCIA 02/15 Released w/o Limitations [employer] [place]O ccupati onal Therapy ) [employer] ([facility]Phy sical Therapy) OUTPATIENT [id number] JEFFREY SCHUSTER 02/18 Released w/o Limitations [employer] [place]P hysical Therapy ) [facility] [employer] [place]Occ upational Therapy) OUTPATIENT [id number] JEFFREY SCHUSTER 02/20 Released w/o Limitations [facility] [employer] [place]O ccupati onal Therapy ) [facility] [employer] [place] upational [place]) OUTPATIENT [id number] ASUNCION KASPERVONNIE 02/22 Released w/o Limitations [employer] [place]O ccupati onal Therapy ) [facility] [employer] [place]Saulo matology) OUTPATIENT [id number] 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 R NEGRO MUELLER 02/25 Released w/o Limitations [facility] [employer] [place]D ermatol ogy) [address] [place] [address] [employer] ([facility]Occ upational Therapy) OUTPATIENT [id number] JEFFREY SCHUSTER 02/25 Released w/o Limitations [facility] [employer] ([facility]O ccupati onal Therapy ) [facility] [employer] [place]Occ upational Therapy) OUTPATIENT [id number] SODOROTHEA, LEONILA L 03/19 Released w/o Limitations [facility] [employer] [place]O ccupati onal Therapy ) [address] [place] [address] [employer] ([facility]Sco tt [facility] Tm Blue) TELE CONSULT [id number] RODOLFO Hughes 03/20[facility] [employer] [place]S cott [facility] Tm Blue) [address] [place] [address] [employer] ([facility]Saulo matology) OUTPATIENT [id number] Atypica l squamou s left forearm , excisio n NEGRO MUELLER 03/28 Released w/o Limitations [facility] [employer] ([facility]D ermatol ogy) [address] [place] [address] [employer] ([facility]Occ upational Therapy) TELE CONSULT [id number] MRI results SOCED PIEDRAA L 04/09[facility] [employer] ([facility]O ccupati onal Therapy ) [facility] Medical [facility] [employer] [place]Mao tt Internal Medicine Tm) OUTPATIENT [id number] suture removal ANNA GUTIERREZ CPT 04/11 Released w/o Limitations [facility] [employer] [place]S cott Interna l Medicin e Tm) Procedures Combined list of: 1) Procedures from Department of Veterans Affairs facilities going back up to thelast 18 months, not all VA non-surgical procedures are included; 2) All procedures from the Department of Defense facilities. Procedure Procedure Type Code Date Perfomer Comments Sourc e No data available for this section Ambulato ry Pharmacy Physician Supervised Specimen Handling / Transfer: Office To Lab Physician Supervised Specimen Handling / Transfer: Office To Lab [id number] 009 NEGRO MUELLER Complex Repair Of Wound Forearms 2.6 to 7.5 cm Complex Repair Of Wound Forearms 2.6 to 7.5 cm 15379 009 NEGRO MUELLER Excision Of Lesion Arms Malignant 1.1 to 2cm Excision Of Lesion Arms Malignant 1.1 to 2cm 19821 009 NEGRO MUELLER Occupational Therapy Re-Evaluation Occupational Therapy Re-Evaluation 85422 009 LEONILA PENDLETON Modalities Iontophoresis Modalities Iontophoresis 40742 009 JEFFREY SCHUSTER Electrodes (e.g., apnea monitor), per pair JEFFREY SCHUSTER Physician Supervised Specimen Handling / Transfer: Office To Lab Physician Supervised Specimen Handling / Transfer: Office To Lab 44575 009 NEGRO MUELLER Biopsy Skin Biopsy Skin 25724 009 NEGRO MUELLER Destruction Of Premalignant Lesion By Any Method 15 Or More 009 NEGRO MUELLER Electrodes (e.g., apnea monitor), per pair 009 JUANITO KASPER Modalities Iontophoresis Modalities Iontophoresis 19527 009 JUANITO KASPER Electrodes (e.g., apnea monitor), per pair 009 JEFFREY SCHUSTER Modalities Iontophoresis Modalities Iontophoresis 29172 009 JEFFREY SCHUSTER Electrodes (e.g., apnea monitor), per pair 009 JEFFREY SCHUSTER Modalities Iontophoresis Modalities Iontophoresis 10427 009 JEFFREY SCHUSTER Electrodes (e.g., apnea monitor), per pair 009 JOSE, ESTRELLITA HINDSJENIFFER [place] Modalities Iontophoresis Modalities Iontophoresis 97832 009 JOSE, ESTRELLITA EDILSON [facility]io Electrodes (e.g., apnea monitor), per pair 009 JOSE, ESTRELLITA WAGGONER [facility] Modalities Iontophoresis Modalities Iontophoresis 11884 009 JOSE, ESTRELLITA WAGGONER Chio Modalities Iontophoresis Modalities Iontophoresis 38842 009 JEFFREY SCHUSTER Exercise equipment 009 LEONILA PENDLETON [facility] Occupational Therapy Evaluation Occupational Therapy Evaluation 79244 009 SOOTSCEDA L Chio Layer Closure Of Wound Trunk 12.6 to 20.0 cm Layer Closure Of Wound Trunk 12.6 to 20.0 cm 29703 009 NEGRO MUELLER [facility] Excision Of Lesion Trunk Malignant 2.1 to 3cm Excision Of Lesion Trunk Malignant 2.1 to 3cm 79046 009 NEGRO MUELLER [facility] Destruction Of Benign Lesion By Cryosurgery 009 CICI SENA [facility] Biopsy Skin Biopsy Skin 43689 009 CICI SENA [facility] Shaving Of Lesion Trunk .6 to 1cm Shaving Of Lesion Trunk .6 to 1cm 39977 009 CHRIS JOHNS [facility] Osteopathic Manip Treatment (OMT) 3-4 Body Regions Involved Osteopathic Manip Treatment (OMT) 3-4 Body Regions Involved 08496 008 NOAH NOONAN [facility] Dermatological Surgery Cryotherapy Dermatological Surgery Cryotherapy 86410 007 SKINNY GODWIN [facility] Electrocardiogram Electrocardiogram 74660 08/25 005 ERIKA GAMBLE [facility] HANDLING AND/OR CONVEYANCE OF SPECIMEN FOR TRANSFER FROM THE OFFICE TO A LABORATORY 009 [facility] OCCUPATIONAL THERAPY RE-EVALUATION 009 [facility] HANDLING AND/OR CONVEYANCE OF SPECIMEN FOR TRANSFER FROM THE OFFICE TO A LABORATORY DoD APPLICATION OF A MODALITY TO 1 [...] 15 MINUTES 009 DoD OCCUPATIONAL THERAPY EVALUATION DoD POSTOPERATIVE FOLLOW-UP VISIT, NORMALLY INCLUDED IN THE SURGICAL PACKAGE, INDICATE THAT EVALUATION & MANAGEMENT SERVICE WAS PERFORMED DURING A POSTOPERATIVE PERIOD REASON RELATED ORIGINAL PROCEDURE DoD POSTOPERATIVE FOLLOW-UP VISIT, NORMALLY INCLUDED IN THE SURGICAL PACKAGE, INDICATE THAT EVALUATION & MANAGEMENT SERVICE WAS PERFORMED DURING A POSTOPERATIVE PERIOD REASON RELATED ORIGINAL PROCEDURE DoD EXCISION, MALIGNANT LESION INCLUDING MARGINS, TRUNK, ARMS, OR LEGS;EXCISED DIAMETER 2.1 TO 3.0 CM DoD BIOPSY OF SKIN, SUBCUTANEOUS TISSUE AND/OR MUCOUS MEMBRANE (INCLUDING SIMPLE CLOSURE), UNLESS OTHERWISE LISTED; SINGLE LESION DoD SHAVING OF EPIDERMAL OR DERMAL LESION, SINGLE LESION, TRUNK, ARMS OR LEGS; LESION DIAMETER 0.6 TO 1.0 CM DoD OSTEOPATHIC MANIPULATIVE TREATMENT (OMT); 3-4 BODY REGIONS INVOLVED DoD DESTRUCTION (EG, LASER SURGERY, ELECTROSURGERY, CRYOSURGERY, CHEMOSURGERY, SURGICAL CURETTEMENT), OF BENIGN LESIONS OTHER THAN SKIN TAGS OR CUTANEOUS VASCULAR PROLIFERATIVE LESIONS; UP TO 14 LESIONS DoD ELECTROCARDIOGRAM, ROUTINE ECG WITH AT LEAST 12 LEADS; WITH INTERPRETATION AND REPORT DoD NONINVASIVE EAR OR PULSE OXIMETRY FOR OXYGEN SATURATION; SINGLE DETERMINATION DoD EXCISION, BENIGN LESION INCLUDING MARGINS, EXCEPT SKIN TAG (UNLESS LISTED ELSEWHERE), TRUNK, ARMS OR LEGS; EXCISED DIAMETER 0.6 TO 1.0 CM [facility] ELECTROCARDIOGRAM, ROUTINE ECG WITH AT LEAST 12 LEADS; INTERPRETATION AND REPORT ONLY [facility] ELECTROCARDIOGRAM, ROUTINE ECG WITH AT LEAST 12 LEADS; INTERPRETATION AND REPORT ONLY [facility] ELECTROCARDIOGRAM, ROUTINE ECG WITH AT LEAST 12 LEADS; INTERPRETATION AND REPORT ONLY [facility] SEDATION WITH OR WITHOUT ANALGESIA (CONSCIOUS SEDATION); INTRAVENOUS, INTRAMUSCULAR OR INHALATION [facility] ELECTROCARDIOGRAM, ROUTINE ECG WITH AT LEAST 12 LEADS; INTERPRETATION AND REPORT ONLY [facility] RELEASE OF CARPAL TUNNEL 995 DoD Social History Combined list of available smoking, [...] Plan No data available for this section 10/09/2024 Ambulatory Pharmacy Functional Status Combined list of recent functional and cognitive assessments recorded at [facility] [place] Functional [place] Measurement (FIM) Scale: 1 = Total Assistance (Subject = 0% +), 2 = Maximal Assistance (Subject = 25% +), 3 = Moderate Assistance (Subject = 50% +), 4 = Minimal Assistance (Subject = 75% +), 5 = Supervision, 6 = Modified Horry (Device), 7 = Complete H[place] (Timely, Safely). Assessment Date/Time Source Assessment Type Assessment Skill Assessment Score Assessment Details No data available for this section
--- OUTSIDE RECORDS SUMMARY | 2024-10-09 09:25 | XMS_ITS | Clinical Summary ---
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
[2024-10-09 19:00] LABS: Basophils Absolute Auto 0.1 K/mm3 (0.0-0.1); Basophils Percent Auto 0.8 % (0.2-1.2); Eosinophils Absolute Auto 0.4 K/mm3 (0-0.3); Eosinophils Percent Auto 5.9 % (0-4.4); Hemoglobin 13.5 g/dL (14.0-18.0); Immature Granulocyte Absolute 0.02 K/mm3 (0.00-0.031); Immature Granulocyte Percent A 0.3 % (0-0.5); Lymphocytes Absolute Auto 1.24 K/mm3 (0.9-3.2); Lymphocytes Percent Auto 19.7 % (18.3-44.2); Mean Corpuscular HGB Conc 31.4 g/dl (32-36); Mean Corpuscular Hemoglobin 31.3 pg (26-34); Mean Corpuscular Volume 99.8 fl (80-100); Mean Platelet Volume 10.2 fl (7.4-10.4); Monocytes Absolute Auto 0.8 K/mm3 (0.1-0.6); Monocytes Percent Auto 12.7 % (2.6-8.5); Neutrophils Absolute Auto 3.8 K/mm3 (1.3-6.7); Neutrophils Percent Auto 60.6 % (45.5-73.1); Platelet Count Result 201 k/mm3 (150-375); Red Blood Count 4.31 M/mm3 (4.6-6.20); Red Cell Distribution Width 13.2 % (11.5-14.5); White Blood Count 6.3 K/mm3 (4.5-10.0)
[2024-10-09 19:06] LABS: Alanine Aminotransferase 17 U/L (6-50); Albumin Level 4.2 g/dL (3.5-5.1); Alkaline Phosphatase 61 U/L (38-126); Aspartate Amino Transferase 34 U/L (17-59); Bilirubin,Total 0.6 mg/dL (0.2-1.3)
[2024-10-09 19:11] LABS: Albumin Level 4.1 g/dL (3.5-5.1); Anion Gap 8 mmol/L (4-12); Blood Urea Nitrogen 25 mg/dL (9-20); Calcium 9.2 mg/dL (8.4-10.2); Carbon Dioxide 29 mmol/L (22-30); Chloride 104 mmol/L (98-107); Estimated Glomerular Filt Rate 52; Glucose 129 mg/dL (65-110); Phosphorus 3.7 mg/dL (2.5-4.5); Potassium 4.7 mmol/L (3.4-5.0); Sodium 141 mmol/L (137-145)
[2024-10-09 19:33] LABS: Creatinine Urine 121.5 mg/dL
[2024-10-09 19:38] LABS: Parathyroid Intact 57.6 pg/mL (14.5-75.2)
[2024-10-09 19:43] LABS: Vitamin D 25 Hydroxy 28.3 ng/mL
[2024-10-09 19:57] LABS: Total Protein Urine Random < 5 mg/dL
[2024-10-09 19:58] LABS: Ur Ttl Prot Creatinine Ratio < 0.04 mg/mg (0-0.20)
[2024-10-09 20:22] LABS: Folic Acid 6.5 ng/mL (2.76->20); Vitamin B12 > 1000.0 pg/mL (239-931)
== END 2024-10-09 09:01 | disposition home or self-care (01) ==
PROVIDERS: PCP Internal Medicine; Visit Provider Internal Medicine Nephrology
DX: E03.9 Hypothyroidism, unspecified (principal); E11.22 Type 2 diabetes mellitus with diabetic chronic kidney disease; I12.9 Hypertensive chronic kidney disease with stage 1 through stage 4 chronic kidney disease, or unspecified chronic kidney disease; N18.31 Chronic kidney disease, stage 3a; D64.9 Anemia, unspecified; E55.9 Vitamin D deficiency, unspecified; D47.2 Monoclonal gammopathy; R00.1 Bradycardia, unspecified; R50.9 Fever, unspecified; N25.81 Secondary hyperparathyroidism of renal origin
CPT/HCPCS: 36415; 80069; 80076; 82306; 82570; 82607; 82728; 82746; 83036; 83970; 84156; 84443; 85025

== ENCOUNTER 2025-01-15 12:43 | Outpatient (CLI) | payer MEDICARE, OTHER, SELFPAY ==
--- OUTSIDE RECORDS SUMMARY | 2025-01-15 12:49 | XMS_ITS | Clinical Summary ---
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
--- OUTSIDE RECORDS SUMMARY | 2025-01-15 12:49 | XMS_ITS | Referral Summary ---
Author Organization [facility] Address [address] [place] [address] Care Team Providers Care Dragline Operator Helper Name Role Phone Hernan Posey DO Primary Care Provider [phone] Encounters Date Type Department Care Team Description 01/15/[address] [facility] Vascular and Vein Surgery [address] [place] [address] [place] [phone] Lino Dykes MD 01/15/[address] [facility] Vascular and Vein Surgery [address] [place] [phone] Lino Dykes MD 01/15/[address] [facility] Vascular and Vein Surgery [address] [place] [phone] Lino Dkyes MD Varicose veins of right calf (Primary Dx); Venous insufficiency; Varicose veins of right lower extremity with inflammation 12/21/[address] [facility] Vascular and Vein Surgery [facility] [address] [place] [phone] Lino Dykes MD 12/21/[address] [facility] Vascular and Vein Surgery [address] [facility] [address] [place] [phone] Lino Dkyes MD 12/21/[address] [facility] Vascular and Vein Surgery [address] [phone] Pricilla Vu MA 12/20/2024 Telephone [facility] Vascular at [address] [place] [address] Pricilla Vu MA 12/20/2024 Orders Only [facility] Vascular at [address] [place] [address] Lino Dykes MD Varicose veins of lower extremity with pain, right (Primary Dx) 12/20/2024 10:00 AM CDT Ancillary Procedure [facility] Vascular and Vein Surgery at [address] [place] [address] Varicose veins of lower extremity with pain, right 12/13/2024 Orders Only [facility] Vascular at [address] [place] [address] Lino Dykes MD Varicose veins of lower extremity with pain, right (Primary Dx) 12/13/2024 8:30 AM CDT Office Visit [facility] Vascular at [address] [place] [address] Nieves Jung, JOEL Varicose veins of right calf (Primary Dx); Varicose veins of lower extremity with inflammation, unspecified laterality 12/08/2024 8:48 PM CDT - 12/10/2024 12:32 PM CDT Hospital Encounter [facility] IM [address] [place] [address] Nataliia Hernández MD Huynh, Kiet T., MD Fasick, Victoria Rose, DO SIRS (systemic inflammatory response syndrome) (HCC) (Primary Dx); Fever, unspecified fever cause; Leukocytosis, unspecified type; Mid back pain on right side; Pneumonia of right lower lobe due to infectious organism Discharge Disposition: Discharge to home or self care from Last 3 Months Allergies No known active allergies Medications atorvastatin [...] sildenafiL (VIAGRA) 100 mg tablet 05/11/2022 Active apixaban 5 mg (74 tabs) tablets,dose packIndications: deep venous thrombosis Take 10 mg (2 tablets) by mouth 2 (two) times a day for 7 days, then take 5 mg (1 tablet) by mouth 2 (two) times a day thereafter. 74 tablet 12/21/2024 Active Active Problems Problem Noted Date Diagnosed Date Varicose veins of right calf 12/14/2024 Assessment & Plan (12/14/2024 11:19 AM CDT): Bulky varicosities noted to the right thigh extending down into the calf. There are areas of tenderness and induration however no erythema. Patient states his symptoms have improved over the past 3 weeks. Have the patient follow-up in the next 3 weeks with a venous reflux to confirm SVT as well as potential need for ablation and stab phlebectomies. Continue aspirin and compression and frequent elevation of the lower extremity. SIRS (systemic inflammatory response syndrome) 0 12/08/2024 Melanoma of neck 03/30/2022 Melanoma in situ of neck 03/30/2022 Coronary artery disease invo lving hop[place] coronary artery of hop[place] heart without angina pectoris 09/29/2018 History of coronary artery stent placement 09/29 Social History Tobacco Use Types Packs/Day Years Used Date Smoking Tobacco: Former Cigarettes Smokeless Tobacco: Never Tobacco Cessation:Counseling Given: Not Answered Comments:quite 1985 Alcohol Use Standard Drinks/Week Comments Yes 0 (1 standard drink = 0.6 oz pur e alcohol) RARE AUDIT-C Answer Date Recorded Q1: How often do you have a drink containing alcohol? Never 12/09/2024 Q2: How many drinks containi ng alcohol do you have on a typical day when you are drinking? Patient does not drink Q3: How often do you have si x or more drinks on one occasion? Never 12/09/2024 Personal Safety Answer Date Recorded Have you ever been in or are you currently in a harmful physical or emotional relationship or is someone making you feel afraid or unsafe? 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 Gender Identity Not on file Sexual Orientation Not on file Last Filed Vital Signs Vital Sign Reading Time Taken Comments Blood Pressure 108/67 12/13/2024 8:29 AM CDT Pulse 63 12/13/2024 8:29 AM CDT Temperature 36.3 C (97.3 F) 12/10/2024 11:09 AM CDT Respiratory Rate 16 12/10/2024 11:09 AM CDT Oxygen Saturation 95% 12/13/2024 8:29 AM CDT Inhaled Oxygen Concentration - - Weight 83.9 kg (185 lb) 12/13/2024 8:29 AM CDT Height 182.9 cm (6') 12/13/2024 8:29 AM CDT Body Mass Index 25.09 12/13/2024 8:29 AM CDT Plan of Treatment Not on file Procedures Procedure Name Priority Date/Time Associated Diagnosis Comments US VEIN DUPLEX LOWER EXTREMITY RIGHT LIMITED Schedule Routine, Read Routine (OP Routine) 12/20/2024 10:43 AM CDT Varicose veins of lower extremity with pain, right POCT GLUCOSE DEVICE Routine 12/10/2024 1 2:03 PM CDT EGFR Routine 12/10/2024 9:26 AM CDT DIFFERENTIAL AUTO Routine 12/10/2024 9:2 6 AM CDT PHOSPHORUS Routine 12/10/2024 9:26 AM CDT MAGNESIUM Routine 12/10/2024 9:26 AM CDT COMPREHENSIVE METABOLIC PANEL Routine 12/10/2024 9:26 AM CDT CBC WITH AUTO DIFFERENTIAL Routine 12/10/2024 9:26 AM CDT POCT GLUCOSE DEVICE Routine 12/10/2024 8 :24 AM CDT POCT GLUCOSE DEVICE Routine 12/10/2024 3 :09 AM CDT POCT GLUCOSE DEVICE Routine 12/09/2024 8 :10 PM CDT POCT GLUCOSE DEVICE Routine 12/09/2024 4 :[address] CHEST WO CONTRAST IP Routine 12/09/2024 12:24 PM CDT HEMOGLOBIN AND HEMATOCRIT Timed 12/09/2024 12:02 PM CDT POCT GLUCOSE DEVICE Routine 12/09/2024 1 1:56 AM CDT POCT GLUCOSE DEVICE Routine 12/09/2024 8 :01 AM CDT EGFR Routine 12/09/2024 2:27 AM CDT DIFFERENTIAL AUTO Routine 12/09/2024 2:2 7 AM CDT COMPREHENSIVE METABOLIC PANEL Routine 12/09/2024 2:27 AM CDT CBC WITH AUTO DIFFERENTIAL Routine 12/09/2024 2:27 AM CDT POCT GLUCOSE DEVICE Routine 12/09/2024 1 :28 AM CDT XR CHEST 1 VIEW ED 12/08/2024 9:41 PM CDT URINALYSIS, MICROSCOPIC ONLY STAT 12/08/2024 9:31 PM CDT URINALYSIS AND REFLEX TO MICROSCOPIC AND CULTURE STAT 12/08/2024 9:31 PM CDT WA CRITICAL CARE ILL/INJURED PATIENT INIT 30-74 MIN Routine 12/08/2024 9:18 PM CDT BLOOD CULTURE STAT 12/08/2024 9:07 PM CDT SEPSIS LACTATE WITH REFLEX STAT 12/08/2024 9:02 PM CDT BLOOD CULTURE STAT 12/08/2024 9:[address] KUB STONE WO CONTRAST ED 12/08/2024 7:13 PM CDT EGFR STAT 12/08/2024 6:01 PM CDT DIFFERENTIAL AUTO STAT 12/08/2024 6:0 1 PM CDT LIPASE STAT 12/08/2024 6:01 PM CDT COMPREHENSIVE METABOLIC PANEL STAT 12/08/2024 6:01 PM CDT CBC WITH AUTO DIFFERENTIAL STAT 12/08/2024 6:01 PM CDT from Last 3 Months Results * US VEIN DUPLEX LOWER EXTREMITY RIGHT LIMITED, UNILATERAL (12/20/2024 10:43 AM CDT) Anatomical Region Laterality Modality Vascular Right Ultrasound 12/20/2024 9:57 AM CDT Narrative 12/21/2024 8:52 AM CDT Vascular & Vein Surgery [place] [address] Lower Extremity Venous Report Patient Name: DASIA PUENTE A : 1945 (79y 10m) Gender: M Study Date: 12/20/2024 09:57:42 AM Mobile Architect: ERIKA Location: [facility] Order Provider: LINO DYKES Quality: Adequate Ref Provider: LINO DYKES PROCEDURES: Vascular Report: A non-invasive vascular imaging study of the right lower extremity veins was performed using B-mode ultrasound, color flow, and spectral Doppler. INDICATIONS: I83.811 Varicose veins of right lower extremity with pain. HISTORY: HTN. DM. CAD-MT S/P stents. Former smoker. COMPARISONS: No previous exams. FINDINGS: Right: Positive for subacute nonocclusive deep vein thrombosis in the right lower extremity. Deep veins involved include the right common femoral vein. Positive for subacute superficial vein thrombosis in the right lower extremity. Superficial veins involved include the right great saphenous vein from saphenofemoral junction to mid thigh and varicose vein from mid thigh to distal calf and a class a truck driver vein in the calf. Provider Notification: Results called to Dr. Dykes at 10:20. CONCLUSIONS: 1. Positive for subacute nonocclusive deep vein thrombosis in the right lower extremity. Deep veins involved include the right common femoral vein. Positive for subacute superficial vein thrombosis in the right lower extremity. Superficial veins involved include the right great saphenous vein from saphenofemoral junction to mid thigh and varicose vein from mid thigh to distal calf and a class a truck driver vein in the calf. ATTESTATION: I have reviewed and interpreted the pertinent images and measurements of this study. I attest to the conclusions in the final report that is provided above. Electronically Signed By: Lino Dykes MD 12/21/2024 8:28:52 AM CDT Procedure Note Lino Dykes MD - 12/21/2024 Vascular & Vein Surgery [address] [place] [id number] Lower Extremity Venous Report Patient Name: DASIA PUENTE A : 1945 (79y 10m) Gender: M Study Date: 12/20/2024 09:57:42 AM Mobile Architect: Location: [facility] Order Provider: LINO DYKES Quality: Adequate Ref Provider: LINO DYKES PROCEDURES: Vascular Report: A non-invasive vascular imaging study of the right lowerextremity veins was performed using B-mode ultrasound, color flow, and spectral Doppler. INDICATIONS: I83.811 Varicose veins of right lower extremity with pain. HISTORY: HTN. DM. CAD-MT S/P stents. Former smoker. COMPARISONS: No previous exams. FINDINGS: Right: Positive for subacute nonocclusive deep vein thrombosis in theright lower extremity. Deep veins involved include the right common femoral vein.Positive for subacute superficial vein thrombosis in the right lower extremity.Superficial veins involved include the right great saphenous vein from saphenofemoraljunction to mid thigh and varicose vein from mid thigh to distal calf and a class a truck driver vein inthe calf. Provider Notification: Results called to Dr. Dykes at 10:20. CONCLUSIONS: 1. Positive for subacute nonocclusive deep vein thrombosis in the rightlower extremity. Deep veins involved include the right common femoral vein. Positive forsubacute superficial vein thrombosis in the right lower extremity. Superficialveins involved include the right great saphenous vein from saphenofemoral junction to midthigh and varicose vein from mid thigh to distal calf and a class a truck driver vein in thecalf. ATTESTATION: I have reviewed and interpreted the pertinent images and measurements ofthis study. I attest to the conclusions in the final report that is provided above. Electronically Signed By: Lino Dykes MD 12/21/2024 8:28:52 AM CDT Lino Dykes MD IMG US PROCEDURES Final Result * POCT glucose (12/10/2024 12:03 PM CDT) Glucose, POC 133 70 - 199 mg/dL Blood 12/10/2024 12:0 3 PM CDT 12/10/2024 12:03 PM CDT us Allyson Bueno DO LAB POCT ORDERABLES - DE VICE Final Result Performing Organization Address City/State/[facility] Co de Phone Number [facility] [address] [facility] [place] [address] * (ABNORMAL) eGFR (12/10/2024 9:26 AM CDT) eGFR 55(L) >=60 mL/min/1. 73 m2 Comment: Interpretive Data Reference Interval Normal >/= 90 mL/min/1.73m2 Mildly decreased* 60 - 89 mL/min/1.73m2 Mildly to moderately decreased 45 - 59 mL/min/1.73m2 Moderately to severely decreased 30 - 44 mL/min/1.73m2 Severely decreased 15 - 29 mL/min/1.73m2 Kidney Failure < 15 mL/min/1.73m2 *Relative to young adult level Estimated glomerular filtration rate is determined by the 2020 CKD-EPI equation recommended by the National Kidney Foundation (A Unifying Approach to GFR Estimation: Recommendations of the NKF-ASK Task Force on Reassessing the Inclusion of Race in Diagnosing Kidney Disease, JASN 2020). The CKD-EPI equation should not be used for patients with unstable renal function and has not been validated in children and those over 70. Current interpretive data was last reviewed 2021. Blood 12/10/2024 9:26 AM CDT 12/10/2024 9:47 AM CDT us Allyson Bueno DO LAB BLOOD ORDERABLES Fin al Result [facility] ([place]) 1 [facility] [place] [address] * (ABNORMAL) Differential, auto (12/10/2024 9:26 AM CDT) Neutrophil abs 6.89(H) 1.50 - 6.50 K/cumm Imm gran abs 0.05 0.00 - 0.10 K/cumm [facility] ([place]) Lymphocyte abs 4.25(H) 0.80 - 3.30 K/cumm [facility] ([place]) Monocyte abs 1.95(H) 0.20 - 0.80 K/cumm [facility] ([place]) Eosinophil abs 0.20 0.00 - 0.50 K/cumm [facility] ([place]) Basophil abs 0.05 0.00 - 0.10 K/cumm [facility] ([place]) Neutrophil pct 51.4 % [facility] ([place]) Comment: Interpretive Data Percent cell count reference ranges are not reported, since discordance with absolute values may lead to misinterpretation of CBC data. Current Interpretive Data was last revised on 2017. Imm gran pct 0.4 % [facility] ([place]) Comment: Interpretive Data Percent cell count reference ranges are not reported, since discordance with absolute values may lead to misinterpretation of CBC data. Current Interpretive Data was last revised on 2017. Lymphocyte pct 31.7 % [facility] ([place]) Comment: Interpretive Data Percent cell count reference ranges are not reported, since discordance with absolute values may lead to misinterpretation of CBC data. Current Interpretive Data was last revised on 2017. Monocyte pct 14.6 % [facility] ([place]) Comment: Interpretive Data Percent cell count reference ranges are not reported, since discordance with absolute values may lead to misinterpretation of CBC data. Current Interpretive Data was last revised on 2017. Eosinophil pct 1.5 % [facility] ([place]) Comment: Interpretive Data Percent cell count reference ranges are not reported, since discordance with absolute values may lead to misinterpretation of CBC data. Current Interpretive Data was last revised on 2017. Basophil pct 0.4 % [facility] ([place]) Comment: Interpretive Data Percent cell count reference ranges are not reported, since discordance with absolute values may lead to misinterpretation of CBC data. Current Interpretive Data was last revised on 2017. Blood 12/10/2024 9:26 AM CDT 12/10/2024 9:47 AM CDT us Allyson Bueno DO LAB BLOOD ORDERABLES Fin al Result [facility] ([place] 1 [facility] [place] [address] * (ABNORMAL) CBC with auto differential (12/10/2024 9:26 AM CDT) WBC 13.39(H) 3.80 - 9.90 K/cumm Hgb 12.2(L) 13.0 - 17.5 g/dL [facility] ([place]) Hct 36.9(L) 38.9 - 50.3 % [facility] ([place]) Plt 190 150 - 400 K/cumm [facility] ([place]) MPV 9.4 9.1 - 12.3 fL [facility] ([place]) RBC 3.94(L) 4.30 - 5.80 M/cumm [facility] ([place]) MCV 93.7 81.3 - 96.4 fL [facility] ([place]) MCH 31.0 27.1 - 33.3 pg [facility] ([place]) MCHC 33.1 32.3 - 35.7 g/dL [facility] ([place]) RDW CV 13.6 11.1 - 14.9 % [facility] ([place]) RDW SD 46.1 35.7 - 48.1 fL [facility] ([place]) NRBC abs 0.00 0.00 - 0.01 K/cumm [facility] ([place]) Blood 12/10/2024 9:26 AM CDT 12/10/2024 9:47 AM CDT Allyson Bueno DO LAB BLOOD ORDERABLES Fin al Result [facility] ([place]) 1 [facility] [place] [place] [address] * Phosphorus (12/10/2024 9:26 AM CDT) Phosphorus, pl 2.5 2.3 - 4.5 mg/dL Blood 12/10/2024 9:26 AM CDT 12/10/2024 9:47 AM CDT Allyson Bueno DO LAB BLOOD ORDERABLES Fin al Result Performing Organization Address City/[facility]/ZIP Co de Phone Number [facility] ([place]) 1 [facility] [place] [address] * Magnesium (12/10/2024 9:26 AM CDT) Magnesium 1.7 1.4 - 2.5 mg/dL Blood 12/10/2024 9:26 AM CDT 12/10/2024 9:47 AM CDT Allyson Bueno DO LAB BLOOD ORDERABLES Fin al Result [facility] ([place]) 1 [facility] [place] [address] * (ABNORMAL) Comprehensive metabolic panel (12/10/2024 9:26 AM CDT) Sodium 136 135 - 145 mmol/L Potassium, pl 4.6 3.3 - 4.9 mmol/L [facility] ([place]) Chloride 105 97 - 110 mmol/L [facility] ([place]) CO2 22 22 - 32 mmol/L [facility] ([place]) Anion gap 9 2 - 15 mmol/L [facility] ([place]) BUN 16 6 - 25 mg/dL [facility] ([place]) Creatinine 1.31(H) 0.80 - 1.30 mg/dL [facility] ([place]) Glucose 161 70 - 199 mg/dL [facility] ([place]) Comment: Interpretive Data Fasting glucose >/= 126 mg/dl is diagnostic for diabetes. Fasting is defined as no caloric intake for at least 8 hours. Fasting glucose between 100 mg/dl to 125 mg/dl is diagnostic of prediabetes. In a patient with classic symptoms of hyperglycemia or hyperglycemic crisis, a random glucose >/= 200 mg/dl is diagnostic for diabetes. In the absence of unequivocal hyperglycemia, results should be confirmed by repeat testing. The classification and Diagnosis of Diabetes Diabetes Care 2021; 46: S19-S40. Current interpretive data was last revised 2022. Calcium 8.1(L) 8.5 - 10.3 mg/dL [facility] ([place]) Bilirubin, total 0.5 0.1 - 1.2 mg/dL [facility] ([place]) Protein, pl 6.4(L) 6.5 - 8.5 g/dL [facility] ([place]) Albumin 3.4(L) 3.5 - 5.0 g/dL [facility] ([place]) Alk phos 95 40 - 130 Units/L [facility] ([place]) ALT 31 7 - 55 Units/L [facility] ([place]) AST 27 10 - 50 Units/L [facility] ([place]) Blood 12/10/2024 9:26 AM CDT 12/10/2024 9:47 AM CDT Allyson Bueno DO LAB BLOOD ORDERABLES Fin al Result [facility] ([place]) 1 [facility] [place] [address] * POCT glucose (12/10/2024 8:24 AM CDT) Glucose, POC 100 70 - 199 mg/dL Blood 12/10/2024 8:24 AM CDT 12/10/2024 8:24 AM CDT Allyson Bueno DO LAB POCT ORDERABLES - DE VICE Final Result [facility] ([place]) 1 [facility] [place] [address] * POCT glucose (12/10/2024 3:09 AM CDT) Glucose, POC 101 70 - 199 mg/dL Blood 12/10/2024 3:09 AM CDT 12/10/2024 3:09 AM CDT Allyson Bueno DO LAB POCT ORDERABLES - DE VICE Final Result [facility] ([place]) 1 [facility] [place] [address] * POCT glucose (12/09/2024 8:10 PM CDT) Glucose, POC 121 70 - 199 mg/dL Blood 12/09/2024 8:10 PM CDT 12/09/2024 8:10 PM CDT Allyson Bueno DO LAB POCT ORDERABLES - DE VICE Final Result [facility] ([place]) 1 [facility] [place] [address] * POCT glucose (12/09/2024 4:43 PM CDT) Glucose, POC 91 70 - 199 mg/dL Blood 12/09/2024 4:43 PM CDT 12/09/2024 4:43 PM CDT Allyson Juhi Mcneillana DO LAB POCT ORDERABLES - DE VICE Final Result [facility] ([place]) 1 [facility] [place] [address] * CT Chest WO Contrast (12/09/2024 12:24 PM CDT) Anatomical Region Laterality Modality Body N/A Computed Tomogra phy 12/09/2024 2:59 PM CDT Narrative 12/09/2024 3:05 PM CDT EXAM DESCRIPTION: CT CHEST WO CONTRAST REASON FOR STUDY: Pneumonia, complication suspected, xray done Pt arrived yesterday with right sided pain, suspected of having pneumonia. TECHNIQUE: CT scan of the chest performed without intravenous contrast using helical scanning technique. Reconstructed coronal and sagittal MPR images reviewed. All images stored on PACS. Automated exposure control was used as a dose optimization technique for this examination. COMPARISON: Chest radiograph 12/08/2024 FINDINGS: The sensitivity for detection of solid visceral lesions is diminished without the use of intravenous contrast. LUNGS: Bilateral bronchial wall thickening. Opacities in the right lower lobe consistent with pneumonia. No suspicious pulmonary nodule or mass PLEURA: Trace right pleural effusion. No pneumothorax MEDIASTINUM/AMINA: Prominent mediastinal lymph nodes likely reactive HEART: Heart size is normal with no pericardial effusion. CORONARY ARTERY CALCIFICATION: Present VASCULATURE: Atheromatous disease of the aorta with coronary artery calcification. No aneurysms of the aorta. AXILLA: No adenopathy. CHEST WALL: No masses. No subcutaneous air. HARDWARE/LINES/TUBES: None. UPPER ABDOMEN: No significant abnormality. MUSCULOSKELETAL: No significant abnormality. OTHER: No other significant abnormality. IMPRESSION: Right lower lobe pneumonia. Trace right pleural effusion. THIS IS AN ELECTRONICALLY VERIFIED FINAL REPORT 12/09/2024 3:05 PM - Electronically signed by Margareth Muniz M.D. FT: FT Report ID: [id number] Reading Location: [id number] Procedure Note Margareth Dinero MD - 12/09/2024 EXAM DESCRIPTION: CT CHEST WO CONTRAST REASON FOR STUDY: Pneumonia, complication suspected, xray done Pt arrived yesterday with right sided pain, suspected of having pneumonia. TECHNIQUE: CT scan of the chest performed without intravenous contrastusing helical scanning technique. Reconstructed coronal and sagittal MPR images reviewed. All images stored on PACS. Automated exposure control was usedas a dose optimization technique for this examination. COMPARISON: Chest radiograph 12/08/2024 FINDINGS: The sensitivity for detection of solid visceral lesions is diminishedwithout the use of intravenous contrast. LUNGS: Bilateral bronchial wall thickening. Opacities in the rightlower lobe consistent with pneumonia. No suspicious pulmonary nodule or mass PLEURA: Trace right pleural effusion. No pneumothorax MEDIASTINUM/AMINA: Prominent mediastinal lymph nodes likely reactive HEART: Heart size is normal with no pericardial effusion. CORONARY ARTERY CALCIFICATION: Present VASCULATURE: Atheromatous disease of the aorta with coronary artery calcification. No aneurysms of the aorta. AXILLA: No adenopathy. CHEST WALL: No masses. No subcutaneous air. HARDWARE/LINES/TUBES: None. UPPER ABDOMEN: No significant abnormality. MUSCULOSKELETAL: No significant abnormality. OTHER: No other significant abnormality. IMPRESSION: Right lower lobe pneumonia. Trace right pleural effusion. THIS IS AN ELECTRONICALLY VERIFIED FINAL REPORT 12/09/2024 3:05 PM - Electronically signed by Margareth Muniz M.D. FT: FT Report ID: [id number] Reading Location: [id number] Allyson Bueno DO IMG CT PROCEDURES Final Result * (ABNORMAL) Hemoglobin and hematocrit (12/09/2024 12:02 PM CDT) Hgb 10.8(L) 13.0 - 17.5 g/dL Hct 33.3(L) 38.9 - 50.3 % [facility] ([place]) Blood 12/09/2024 12:0 2 PM CDT 12/09/2024 12:16 PM CDT Allyson Bueno DO LAB BLOOD ORDERABLES Fin al Result [facility] ([place]) 1 [facility] [place] [address] * POCT glucose (12/09/2024 11:56 AM CDT) Glucose, POC 97 70 - 199 mg/dL Specimen (Source) Anatomical Location / [id number]|2025-01-15 12:50:00|2025-01-15 12:49:00|XMS_ITS|BKG [id number]|External Medical Summaries|[id number]|" Encounter Summary Created on: January 15, 2025 Dasia Puente : 1945 Sex: Male Author Organization [facility] Healthcare Address [address] [place] [address] Care Team Providers Care Dragline Operator Helper Name Role Phone Hernan Posey DO Primary Care Provider [phone]- [phone] Encounter Details Date Type Department Care Team (Late st Contact Info) Description 01/15/[address] [facility] Medical Group Vascular and Vein Surgery [address] [facility] [address] [place] [address] Lino Dykes MD [address] [place], [place] [id number] Social History Tobacco Use Types Packs/Day Years Used Date Smoking Tobacco: Former Cigarettes Smokeless Tobacco: Never Comments:quite 1985 Alcohol Use Standard Drinks/Week Comments Yes 0 (1 standard drink = 0.6 oz pur e alcohol) RARE AUDIT-C Answer Date Recorded Q1: How often do you have a drink containing alcohol? Never 12/09/2024 Q2: How many drinks containi ng alcohol do you have on a typical day when you are drinking? Patient does not drink Q3: How often do you have si x or more drinks on one occasion? Never 12/09/2024 Personal Safety Answer Date Recorded Have you ever been in or are you currently in a harmful physical or emotional relationship or is someone making you feel afraid or unsafe? 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 The order was missed entering in chart. documented in this encounter Plan of Treatment Not on file documented as of this encounter Visit Diagnoses Not on filedocumented in this encounter Care Teams Dragline Operator Helper Relationship Specialty Start Date End Date Hernan Posey DO PCP - General Internal Medicine 09/29/18 documented as of this encounter "
--- OUTSIDE RECORDS SUMMARY | 2025-01-15 12:50 | XMS_ITS | Clinical Summary ---
Author Organization [facility] Address [address] [place] [address] Care Team Providers Care Underbaster Name Role Phone Hernan Posey DO Primary Care Provider [phone]- [phone] Allergies No known active allergies Medications atorvastatin [...] neck 03/30/2022 Coronary artery disease invo lving [place] coronary artery of [place] heart without angina pectoris 09/29/2018 History of coronary artery stent placement 09/29 Encounters Date Type Department Care Team Description 01/15/2025 Telephone [facility] Vascular and Vein Surgery [address] [place] [phone] Lino Dykes MD 01/15/2025 Telephone [facility] Vascular and Vein Surgery [address] [place] [phone] Lino Dykes MD 01/15/2025 Orders Only [facility] Vascular and Vein Surgery [address] [place] [phone] Lino Dykes MD Varicose veins of right calf (Primary Dx); Venous insufficiency; Varicose veins of right lower extremity with inflammation 12/21/2024 Orders Only [facility] Vascular and Vein Surgery [address] [place] [phone] Lino Dykes MD 12/21/2024 Orders Only [facility] Vascular and Vein Surgery [address] [place] [phone] Lino Dykes MD 12/21/2024 Documentation [facility] Vascular and Vein Surgery [address] [place] [address] Pricilla Vu MA 12/20/2024 10:00 AM CDT Ancillary Procedure [facility] Vascular and Vein Surgery at [address] [place] [address] Varicose veins of lower extremity with pain, right 12/20/2024 Telephone [facility] Vascular at [address] [place] [address] Pricilla Vu MA 12/20/2024 Orders Only [facility] Vascular at [address] [place] [phone] Lino Dykes MD Varicose veins of lower extremity with pain, right (Primary Dx) 12/13/2024 8:30 AM CDT Office Visit [facility] Vascular at [address] [place] [address] Nieves Jung NP Varicose veins of right calf (Primary Dx); Varicose veins of lower extremity with inflammation, unspecified laterality 12/13/2024 Orders Only [facility] Vascular at [address] [place] [address] Lino Dykes MD Varicose veins of lower extremity with pain, right (Primary Dx) 12/08/2024 8:48 PM CDT - 12/10/2024 12:32 PM CDT Hospital Encounter [facility] [address] [place] [address] Nataliia Hernández MD Huynh, Kiet T., MD Fasick, Victoria Rose, DO SIRS (systemic inflammatory response syndrome) (HCC) (Primary Dx); Fever, unspecified fever cause; Leukocytosis, unspecified type; Mid back pain on right side; Pneumonia of right lower lobe due to infectious organism Discharge Disposition: Discharge to home or self care from Last 3 Months Surgical History Surgery Date Site/Laterality Comments CARDIAC CATHETERIZATION SKIN CANCER EXCISION Medical History Medical History Date Comments Diabetes mellitus (HCC) Hypertension Thyroid disease Heart valve disease Heart attack (HCC) Glaucoma Family History Medical History Relation Name Comments Diabetes Brother Eh Puente Heart disease Brother Eh Puente Hypertension Father Tito Puente Cancer Mother Paula Puente Relation Name Status Comments Brother Eh Puente Father Tito Puente Mother Paula Puente Social History Tobacco Use Types Packs/Day Years [...] on file 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 Gender Identity Not on file Sexual [...] 12/13/2024 8:29 AM CDT Plan of Treatment Health Maintenance Due Date Last Done Comments Depression Screening 1945 DTaP/Tdap/Td Vaccine (1 - Tdap) 02/15/1955 Hepatitis B Screening 02/15/1962 Abdominal Aortic Aneurysm (A AA) Screen 02/15/2009 Well Visit 65+ 02/15/2009 Zoster Vaccine (2 of 3) 08/30/2014 07/05/2014 Influenza Vaccine (Season Ended) 2025 06/20/2019, 06/20/2018, 06/28/2017, Additional history exists Fall Risk Assessment 12/10/2025 12/10/2024 Pneumococcal vaccine 65+ Completed 07/15/2016, 02/2015 Procedures Procedure Name Priority Date/Time Associated Diagnosis [...] AND CULTURE STAT 12/08/2024 9:31 PM CDT [facility] ILL/INJURED PATIENT INIT 30-74 MIN [...] 8:52 AM CDT Vascular & Vein Surgery [address] [place] [address] Lower Extremity Venous Report Patient Name: DASIA PUENTE A : 1945 (79y 10m) Gender: M Study Date: 12/20/2024 09:57:42 AM Hypo Dipper: ERIKA Location: [facility] Order Provider: LINO DYKES Quality: Adequate Ref Provider: LINO DYKES PROCEDURES: Vascular Report: A non-invasive vascular imaging study of the right lower extremity veins was performed using B-mode ultrasound, color flow, and spectral Doppler. INDICATIONS: I83.811 Varicose veins of right lower extremity with pain. HISTORY: HTN. DM. CAD-IL S/P stents. Former smoker. COMPARISONS: No previous [...] mid thigh to distal calf and a dining car server vein in the calf. Provider Notification: Results [...] mid thigh to distal calf and a dining car server vein in the calf. ATTESTATION: I have reviewed and interpreted the pertinent images and measurements of this study. I attest to the conclusions in the final report that is provided above. Electronically Signed By: Lino Dykes MD 12/21/2024 8:28:52 AM CDT Procedure Note Lino Dykes MD - 12/21/2024 Vascular & Vein Surgery [address] [place] [address] Lower Extremity Venous Report Patient Name: DASIA PUENTE A : 1945 (79y 10m) Gender: M Study Date: 12/20/2024 09:57:42 AM Hypo Dipper: ERIKA Location: [facility] Order Provider: LINO DYKES Quality: Adequate Ref Provider: LINO DYKES PROCEDURES: Vascular Report: A non-invasive vascular imaging study of the right lowerextremity veins was performed using B-mode ultrasound, color flow, and spectral Doppler. INDICATIONS: I83.811 Varicose veins of right lower extremity with pain. HISTORY: HTN. DM. CAD-IL S/P stents. Former smoker. COMPARISONS: No previous [...] mid thigh to distal calf and a dining car server vein inthe calf. Provider Notification: Results called [...] mid thigh to distal calf and a dining car server vein in thecalf. ATTESTATION: I have reviewed and interpreted the pertinent images and measurements ofthis study. I attest to the conclusions in the final report that is provided above. Electronically Signed By: Lino Dykes MD 12/21/2024 8:28:52 AM CDT Lino Dykes MD IM US PROCEDURES Final Result * POCT glucose (12/10/2024 12:03 PM CDT) [facility] Glucose, POC 133 70 - 199 mg/dL Blood 12/10/2024 12:0 3 PM CDT 12/10/2024 12:03 PM CDT Allyson Reynaga Myles DO LAB POCT ORDERABLES - DE VICE Final Result Performing Organization Address City/[facility]/ZIP Co de Phone Number YUMI GUEVARA ([place]) [address] [facility] [employer] [place] [address] * (ABNORMAL) eGFR (12/10/2024 9:26 AM CDT) [...] of Race in Diagnosing Kidney Disease, JASN 1). The CKD-EPI equation should not be used for patients with unstable renal function and has not been validated in children and those over 70. Current interpretive data was last reviewed 2021. Blood 12/10/2024 9:26 AM CDT 12/10/2024 9:47 AM CDT Allyson Pitchbrite DO LAB BLOOD ORDERABLES Fin al Result YUMI GUEVARA ([place]) [address] [facility] [place] [address] * (ABNORMAL) Differential, auto (12/10/2024 9:26 AM [...] Fin al Result [facility] ([place]) [address] [facility] [place] [address] * (ABNORMAL) CBC with auto differential (12/10/2024 9:26 AM CDT) WBC 13.39(H) 3.80 - 9.90 K/cumm Hgb 12.2(L) 13.0 - 17.5 g/dL [facility] ([place]) Hct 36.9(L) 38.9 - 50.3 % [facility] ([place]) Plt 190 150 - 400 K/cumm [facility] ([place]) MPV 9.4 9.1 - 12.3 fL [facility] ([place]) RBC 3.94(L) 4.30 - 5.80 M/cumm [facility] ([place]) MCV 93.7 81.3 - 96.4 fL [facility] ([place]) MCH 31.0 27.1 - 33.3 pg [facility] ([place]) MCHC 33.1 32.3 - 35.7 g/dL [facility] ([place]) RDW CV 13.6 11.1 - 14.9 % [facility] ([place]) RDW SD 46.1 35.7 - 48.1 fL [facility] ([place]) NRBC abs 0.00 0.00 - 0.01 K/cumm [facility] ([place]) Blood 12/10/2024 9:26 AM CDT 12/10/2024 9:47 AM CDT Allyson Bueno DO LAB BLOOD ORDERABLES Fin al Result YUMI GUEVARA ([place]) 1 [facility] [place] [address] * Phosphorus (12/10/2024 9:26 AM CDT) Phosphorus, pl 2.5 2.3 - 4.5 mg/dL Blood 12/10/2024 9:26 AM CDT 12/10/2024 9:47 AM CDT Allyson Bueno LAB BLOOD ORDERABLES Fin al Result Y[facility]I GUEVARA ([place]) [address] [place] [address] * Magnesium (12/10/2024 9:26 AM CDT) Magnesium 1.7 1.4 - 2.5 mg/dL Blood 12/10/2024 9:26 AM CDT 12/10/2024 9:47 AM CDT Allyson Bueno LAB BLOOD ORDERABLES Fin al Result Performing Organization Address City/[facility] Co de Phone Number YUMI GUEVARA ([place]) [address] [place] [address] * (ABNORMAL) Comprehensive metabolic panel (12/10/2024 9:26 AM CDT) Sodium 136 135 - 145 mmol/L Potassium, pl 4.6 3.3 - 4.9 mmol/L [facility] ([place]) Chloride 105 97 - 110 mmol/L [facility] ([place]) CO2 22 22 - 32 mmol/L [facility] ([place]) Anion gap 9 2 - 15 mmol/L [facility] ([place]) BUN 16 6 - 25 mg/dL [facility] ([place]) Creatinine 1.31(H) 0.80 - 1.30 [...] Fin al Result YUMI GUEVARA ([place]) 1 [facility] [place] [address] * POCT glucose (12/10/2024 8:24 AM CDT) Glucose, POC 100 70 - 199 mg/dL Blood 12/10/2024 8:24 AM CDT 12/10/2024 8:24 AM CDT Allyson Bueno LAB POCT ORDERABLES - DE VICE Final Result [facility] ([place]) 1 [facility] [employer] [place] [address] * POCT glucose (12/10/2024 3:09 AM CDT) Glucose, POC 101 70 - 199 mg/dL Blood 12/10/2024 3:09 AM CDT 12/10/2024 3:09 AM CDT Allyson Bueno DO LAB POCT ORDERABLES - DE VICE Final Result [facility]I GUEVARA ([place]) [address] [place] [address] * POCT glucose (12/09/2024 8:10 PM CDT) Glucose, POC 121 70 - 199 mg/dL Blood 12/09/2024 8:10 PM CDT 12/09/2024 8:10 PM CDT Allyson Bueno DO LAB POCT ORDERABLES - DE VICE Final Result Performing Organization Address [facility] Co de Phone Number YUMI GUEVARA (SELMA) 1 [facility] [place] [address] * POCT glucose (12/09/2024 4:43 PM CDT) Glucose, POC 91 70 - 199 mg/dL Blood 12/09/2024 4:43 PM CDT 12/09/2024 4:43 PM CDT Allyson Bueno DO LAB POCT ORDERABLES - DE VICE Final Result Performing Organization Address City/[facility] Co de Phone Number YUMI GUEVARA ([place]) 1 [facility] [place] [address] * CT Chest WO Contrast (12/09/2024 12:24 [...] Margareth Muniz M.D. FT: FT Report ID: [id number] Reading Location: [place] [address] Procedure Note Margareth Dinero MD - 12/09/2024 [...] lobe pneumonia. Trace right pleural effusion. THIS I [id number]|2025-01-15 12:50:00|2025-01-15 12:49:00|XMS_ITS|VANESSAG PIOTR|External Medical Summaries|[id number]|" Clinical Summary Created on: January 15, 2025 Dasia Puente : 1945 Sex: Male Author Organization [facility] Address [address] [place] [address] Care Team Providers Care Underbaster Name Role Phone Hernan Posey DO Primary [...] 1,000 mcg by mouth daily. Active Fish Oil-[place]-3 Fatty Acids 300-500 mg Capsule Take by mouth. Active latanoprost (XALATAN) 0.005 % solution 1 Drop daily at bedtime. Active hydrALAZINE (APRESOLINE) 10 mg tablet Take 10 mg by mouth 4 times daily. 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 Gender Identity Not on file Sexual Orientation Not on file Last Filed Vital Signs Vital Sign Reading Time Taken Comments Blood Pressure 125/63 10/02/2024 11:29 AM FUNDRAISING CONSULTANT Pulse 59 10/02/2024 11:29 AM FUNDRAISING CONSULTANT Temperature 36.6 C (97.9 F) 10/02/2024 11:29 AM FUNDRAISING CONSULTANT Respiratory Rate 15 10/02/2024 11:29 AM FUNDRAISING CONSULTANT Oxygen Saturation 93% 10/02/2024 11:29 AM FUNDRAISING CONSULTANT Inhaled Oxygen Concentration - - Weight 85.5 kg (188 lb 9.6 oz) 10/02/2024 11:29 AM FUNDRAISING CONSULTANT Height 182.9 cm (6') 10/28/2022 10:21 AM FUNDRAISING CONSULTANT Body Mass Index 25.58 10/28/2022 10:21 AM FUNDRAISING CONSULTANT Plan of Treatment Upcoming Encounters Date Type Department Care Team (Late st Contact Info) Description 10/02/2025 11:30 AM FUNDRAISING CONSULTANT Office Visit [facility] Oncology and Hematology - [place] [address] [place] [address] Samir Fritz MD [address] [place] [address] Health Maintenance Due Date Last Done Comments DIABETES ANNUAL FOOT EXAM 02/15/1962 DIABETES MICROALBUMIN ANNUAL SCREEN 02/15/1962 LDL CHOLESTEROL ANNUAL 02/15/1962 DTAP/TDAP/TD VACCINES (1 - Tdap) 02/15/1963 PNEUMOCOCCAL VACCINE 50+ YEA RS (1 of 2 - PCV) 02/15/1963 ZOSTER VACCINE (2 of 3) 08/30/2014 07/05/2014 RSV VACCINE (60+ or ) (1 - 1-dose 75+ series) 02/15/2019 DIABETES ANNUAL RETINAL EXAM 05/12/2022, 06/21/2020, 01/04/2020, Additional history exists INFLUENZA VACCINE (#1) 2024 DIABETES HBA1C Q 6 MONTHS 09/15/20242023, 09/15/2023, 03/09/2023, Additional history exists Insurance MEDICARE PART A AND B [facility] [employer] Care Teams Underbaster Relationship Specialty Start Date End Date Hernan Posey DO [address] [phone] PCP - General Internal Medicine 10/28/22 "
--- OUTSIDE RECORDS SUMMARY | 2025-01-15 12:50 | XMS_ITS | Continuity of Care Document ---
Author Name [facility] Organization [facility] Care Team Providers Care Tobacco Warehouse Manager Name Role Phone [facility] Unavailable Unavailable Problems Combined list of problems from Department of Defense and Veterans Affairs facilities. It does not include entries that were removed or entered in error. 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 DoD NONALLOPATHIC LESIONS SACRAL Active Condition DoD NONALLOPATHIC LESIONS PELVIC Active Condition Performed OMT including HVLA and ME and MFR to pelvis, sacrum and LLE. Physical abnormal findings normalized post tx, pt hay well. Will refer to [facility] DO clinic for f/u eval. DoD muscle cramps in the calf Active Condition DoD WARTS Active Condition DoD visit for: refer patient without exam or treatment Inactive Condition DoD visit for: administrative purpose Active Condition DoD OSTEOARTHRITIS Active Condition DoD DIABETES MELLITUS Active Condition Do ing well, will continue glyburide and recheck a1c 3 months from previous check. DoD HYPERTENSION (SYSTEMIC) Active Condition DoD HYPERLIPIDEMIA Active Condition DoD visit for: issue repeat prescription for medication Active Condition DoD LUMBAGO Active Condition No red fla g sx. [...] and may consider imaging at that time. [facility] CORONARY ARTERY DISEASE Active Condition DoD foot pain (soft tissue) [...] Ordering Provider Order Date Order Qty Source apixaban 5 mg tablet See Instruct ions, Oral, # 74 EA, 0 total refill(s ), Soft Stop Oral (given by mouth) Ordered 5 2024 74.0 Ambulat ory Pharmac y atorvastati n 20 mg tablet = 1 tab(s), Oral, Daily, # 90 EA, 1 total refill(s ), Hard Stop Oral (given by mouth) Ordered 07/24/2025 5 2024 90.0 Ambulat ory Pharmac y atorvastati n 20 mg tablet 20 mg, Oral, Daily, # 90 EA, 1 total refill(s ), Hard Stop Oral (given by mouth) Complet ed 07/25/2024 4 2023 90.0 Ambulat ory Pharmac y atorvastati n 20 mg tablet 20 mg, Oral, Daily, # 90 EA, 1 total refill(s ), Hard Stop Oral (given by mouth) Discont inued 07/25/2024 4 2023 90.0 Ambulat ory Pharmac y atorvastati n 20 mg tablet See Instruct ions, # 90 EA, 1 total refill(s ), Acute Complet ed 01/21/2024 3 2023 90.0 Ambulat ory Pharmac y brimonidine -timolol 0.2%-0.5% eye drops [5mL] = 1 drop(s), # 15 mL, 4 total refill(s ), Hard Stop Complet ed 09/21/2024 4 2024 15.0 Ambulat ory Pharmac y brimonidine -timolol 0.2%-0.5% eye drops [5mL] = 1 drop(s), Eye-Both , BID, # 15 mL, 4 total refill(s ), Soft Stop Both eyes Ordered 5 2024 15.0 Ambulat ory Pharmac y cephalexin 500 mg capsule See Instruct ions, Oral, # 14 EA, 0 total refill(s ), Hard Stop Oral (given by mouth) Complet ed 05/18/2024 3 2023 14.0 Ambulat ory Pharmac y Combigan 0.2%-0.5% eye drops [10mL] See dose instruct ions in comments , # 20 mL, 2 total refill(s ), Acute Complet ed 09/07/2023 3 2023 20.0 Ambulat ory Pharmac y ezetimibe (U/D) 10 MG ORAL TAB Take or use exactly as directed .Obtain advice for OTCs.[place] ck with your doctor before becoming . 10/24/2024 [id number] 4 2023 90 [facility] [place] ezetimibe 10 mg tablet See Instruct ions, # 90 EA, 3 total refill(s ), Hard Stop Ordered 03/20/2025 5 2024 90.0 Ambulat ory Pharmac y ezetimibe 10 mg tablet 10 mg, Oral, Daily, # 90 EA, 1 total refill(s ), Hard Stop Oral (given by mouth) Discont inued 03/21/2024 4 2023 90.0 Ambulat ory Pharmac y ezetimibe 10 mg tablet See Instruct ions, # 90 EA, 2 total refill(s ), Acute Complet ed 09/07/2023 3 2023 90.0 Ambulat ory Pharmac y hydrALAZINE 10 mg tablet 10 mg, Oral, TID, # 270 EA, 3 total refill(s ), Hard Stop Oral (given by mouth) Complet ed 04/22/2024 4 2023 270.0 Ambulat ory Pharmac y hydrALAZINE 10 mg tablet = 1 tab(s), Oral, TID, # 270 EA, 3 total refill(s ), Hard Stop Oral (given by mouth) Ordered 04/25/2025 5 2024 270.0 Ambulat ory Pharmac y latanoprost 0.005% eye drops [2.5mL] See Instruct ions, # 7.5 mL, 6 total refill(s ), Hard Stop Discont inued 03/21/2024 4 2023 7.5 Ambulat ory Pharmac y latanoprost 0.005% eye drops [2.5mL] See dose instruct ions in comments , # 7.5 mL, 4 total refill(s ), Acute Complet ed 11/26/2023 4 2023 7.5 Ambulat ory Pharmac y latanoprost 0.005% eye drops [2.5mL] See Instruct ions, # 7.5 mL, 4 total refill(s ), Hard Stop Ordered 03/21/2025 5 2024 7.5 Ambulat ory Pharmac y levothyroxi ne (Synthroid) 100 mcg tablet 100 mcg, Oral, Daily, # 90 EA, 1 total refill(s ), Hard Stop Oral (given by mouth) Complet ed 07/25/2024 4 2023 90.0 Ambulat ory Pharmac y levothyroxi ne (Synthroid) 100 mcg tablet = 1 tab(s), Oral, Daily, # 90 EA, 1 total refill(s ), Hard Stop Oral (given by mouth) Ordered 07/24/2025 5 2024 90.0 Ambulat ory Pharmac y levothyroxi ne (Synthroid) 100 mcg tablet See dose instruct ions in comments , # 90 EA, 1 total refill(s ), Acute Complet ed 01/21/2024 3 2023 90.0 Ambulat ory Pharmac y levothyroxi ne (Synthroid) 100 mcg tablet 100 mcg, Oral, Daily, # 90 EA, 1 total refill(s ), Hard Stop Oral (given by mouth) Discont inued 07/25/2024 4 2023 90.0 Ambulat ory Pharmac y Levothyroxi ne Sodium ([place]) Tablet 100 mcg Oral Take on empty stomach. Take with plenty of water.Be careful if taking OTCs.Mark e or use exactly as directed . Active 01/17/2025 [id number] 4 2023 90 [facility] [place] lisinopril 10 mg tablet 10 mg, Oral, # 90 EA, 3 total refill(s ), Hard Stop Oral (given by mouth) Complet ed 02/26/2024 4 2023 90.0 Ambulat ory Pharmac y lisinopril 10 mg tablet See Instruct ions, # 90 EA, 3 total refill(s ), Hard Stop Ordered 03/20/2025 5 2024 90.0 Ambulat ory Pharmac y metFORMIN 1000 mg tablet = 1 tab(s), Oral, BID, # 180 EA, 1 total refill(s ), Hard Stop Oral (given by mouth) Ordered 07/24/2025 5 2024 180.0 Ambulat ory Pharmac y metFORMIN 1000 mg tablet 1000 mg, Oral, BID, # 180 EA, 1 total refill(s ), Hard Stop Oral (given by mouth) Discont inued 07/25/2024 4 2023 180.0 Ambulat ory Pharmac y metFORMIN 1000 mg tablet 1000 mg, Oral, BID, # 180 EA, 2 total refill(s ), Hard Stop Oral (given by mouth) Complet ed 04/22/2024 4 2023 180.0 Ambulat ory Pharmac y Metformin Hydrochlori de Tablet Extended Release 1,000 mg Oral Do not drink alcohol. Take with food/mil k.Take or use exactly as directed .Obtain advice for OTCs.[place] ck with your doctor before becoming . Active 01/17/2025 [id number] 4 [address] [place] [address] [facility] ([place]) sildenafil 100 mg tablet = 1 tab(s), Oral, Daily, # 30 EA, 2 total refill(s ), Hard Stop Oral (given by mouth) Ordered 07/24/2025 4 2023 30.0 Ambulat ory Pharmac y sildenafil 100 mg tablet See Instruct ions, # 18 EA, 1 total refill(s ), Hard Stop Complet ed 07/25/2024 4 2023 18.0 Ambulat ory Pharmac y sildenafil 100 mg tablet See dose instruct ions in comments , # 18 EA, 1 total refill(s ), Acute Complet ed 09/07/2023 3 2023 18.0 Ambulat ory Pharmac y Allergies, Adverse Reactions, Alerts Combined list of allergies from Department of Defense and Veterans Affairs facilities. It does not include entries that were removed or entered in error. Substance Category Reaction Severity Reaction type Status Date Reported Comments Source [facility] 305[facility] Drug allergy (disorder) active 05/09/[address] [place] [address] [facility] ([place]) Immunizations Combined list of available immunizations from the Department of Defense and Veterans Affairs facilities. Immunization Series Date Given Administered By Site Reaction Lot Number CVX Code Drug Diagrammer And Seamer Status Comments Source zoster vaccine live 2013 121 [employer] complet ed zoster vaccine live 07/05/14 Given Ambulat ory Pharmac y influenza virus vaccine,split 2003 zzLef t Arm [id number] sanofi pasteur complet ed influenza virus vaccine,s plit 08/19/04 Given Ambulat ory Pharmac y influenza virus vaccine,split 2003 [id number] sanofi pasteur complet ed influenza virus vaccine,s plit 08/19/04 Given Ambulat ory Pharmac y influenza virus vaccine, split virus (incl. purified surface antigen)-reti red CODE 1 2003 Unknown, Provider [id number] Sanofi Pasteur ([facility]) complet ed influenza virus vaccine, split virus [...] ADM Date DC Date Status Disposition Source [address] [place] [address] [employer] ([place]Sco tt [facility] [place]) TELE CONSULT [id number] Med refill and pos labs MANUEL RUIZ 03/[address] [place] [address] [employer] [facility] [place] [facility] Tm Blue) [address] [place] [address] [employer] [facility] [place] [place] [facility] [place]) TELE CONSULT [id number] lab results SKINNY GODWIN 04/[address] [place] [address] [employer] ([place])(S cott [facility] [place] [place]) [address] [place] [address] [employer] ([place])(Sco tt [facility] [place] [place]) TELE CONSULT [id number] lab results SKINNY GODWIN 04/[address] [place] [address] [employer] [facility] [place] [facility] [address] [place] [address] [employer] ([place])(Sco tt [facility] [place]) OUTPATIENT [id number] f/u labs dibetic ZEKE VANN 05/11 Released w/o Limitations [address] [place] [address] [employer] ([place])(S cott [facility] [place]m [place]) [address] [place] [address] [employer] ([place])(Sco tt [facility] [place]) TELE CONSULT [id number] accu checks ZEKE VANN 05/[address] [place] [address] [employer] ([place]S cott [facility] [place]) [address] [place] [address] [employer] ([place])(Sco tt [facility] [place]) TELE CONSULT [id number] med refill SKINNY GODWIN 06/[address] [place] [address] [employer] ([place])(S cott [facility] [place]) [address] [place] [address] [employer] [facility] [place] [facility] [place]) TELE CONSULT [id number] med refill SKINNY GODWIN 06/26 [facility] [employer] [place]S cott [facility] [place]) [facility] [employer] ([place])(Sco tt [facility] [place]) OUTPATIENT [id number] f/u on heart conditi on and diabeti es SKINNY GODWIN 08/11 Released w/o Limitations [address] [place] [address] [employer] ([place])(S cott [facility] [place]) [address] [place] [address] [employer] ([place])(Car diology Rs ([place])) OUTPATIENT [id number] Cardiac stent - Feb 2003 @ [facility] [place] 08/25 Released w/o Limitations [address] [place] [address] Group [employer] ([place])(C ardiolo gy Rs ([place])) [address] [place] [address] [employer] ([place])(Car diology Rs ([place])) OUTPATIENT [id number] go over lab work, [facility] 09/29 Released w/o Limitations [address] [place] [address] Group [employer] ([place])(C ardiolo gy Rs (Mtf)) [address] [place] [address] [employer] ([place])(Sco tt [facility] [place] [place]) OUTPATIENT [id number] 60 yr old phys/rt foot pain KRISSY HUBBARD 10/12 Released w/o Limitations [address] [place] [address] [employer] ([place])(S cott [facility] [place] [place]) [address] [place] [address] [employer] ([place])(Car diology Rs ([place])) OUTPATIENT [id number] f/u [facility] 12/22 Released w/o Limitations [address] [place] [address] Group [employer] ([place])(C ardiolo gy Rs (Mtf)) [address] [place] [address] [employer] ([place])(Sco tt [facility] [place]) TELE CONSULT [id number] Med RefSKINNY Harman 01/11 [facility] [employer] ([place])(S cott [facility] [place]) [address] [place] [address] [employer] ([place])(Car diology Rs (Mtf)) OUTPATIENT [id number] f/u ABILIO MOLINA 01/19 Released w/o Limitations [address] [place] [address] Group [employer] ([place])(C ardiolo gy Rs (Mtf)) [facility] [employer] ([place])(Sco tt OF Fam Res [place]) TELE CONSULT [id number] Med Refill KARLIE KNOX 03/22 [facility] [employer] ([place]S cott [facility] F[facility] [place]) [facility] Medical [facility] [employer] ([place])(Sco tt OF Fam Res [place]) OUTPATIENT [id number] f/u SKINNY Carter 04/23 Released w/o Limitations [facility] [employer] ([place])(S cott OF F[facility] [place]) [facility] Medical [facility] [employer] ([place]Sco tt [facility] [place]) TELE CONSULT [id number] Med SKINNY Mejia 05/26 [facility] Medical [facility] [employer] ([place])(S cott OF [facility] Tm Blue) [address] [place] [address] [employer] ([place]Sco tt [facility] [place]) TELE CONSULT [id number] Med refSKINNY Harman 07/15 [facility] [employer] ([place])(S cott OF Fam Res [place]) [address] [place] [address] [employer] ([place])(Sco tt [facility] [place]) OUTPATIENT [id number] lower back pain GRAND Matthew CHOI 09/06 Released w/o Limitations [address] [place] [address] [employer] ([place])(S cott [facility] [place]) [address] [place] [address] [employer] ([place]Sco tt [facility] [place]) TELE CONSULT [id number] Med SKINNY Mejia 10/11 [facility] [employer] [place]S cott OF Fam [facility] [place]) [facility] Medical [facility] [employer] ([place])(Sco tt OF Fam Res [place]) TELE CONSULT [id number] SKINNY Mejia 10/20 [facility] [employer] [place]S cott OF Fam [facility] [place]) [facility] Medical [facility] [employer] ([place]Sco tt OF Fam Res [place]) TELE CONSULT [id number] SKINNY Mclean 11/04 [facility] [employer] [place]S cott OF F[facility] [place]) [facility] [employer] [place]Sco tt [facility] [place]) OUTPATIENT [id number] F/U eval of DM/SKINNY Topete 11/19 Released w/o Limitations [facility] [employer] [place]S cott OF [facility] [place]) [facility] [employer] [place]Sco tt [facility] [place]) TELE CONSULT [id number] SKINNY Mclean 12/13 [facility] [employer] [place])(S cott OF Fam Res [place]) [facility] [employer] [place]Sco tt [facility] [place]) TELE CONSULT [id number] SKINNY Mclean 04/19 [facility] [employer] ([place])(S cott OF Fam Res [place]) [facility] [employer] [place]Sco tt [facility] [place]) TELE CONSULT [id number] SKINNY Mclean 05/06 [facility] [employer] ([place])(S cott OF Fam Res [place]) [facility] [employer] [place]Sco tt [facility] [place]) OUTPATIENT [id number] F/U DIABETE SKINNY HAIRSTON 05/30 Released w/o Limitations [facility] [employer] [place]S cott OF Fam [facility] [place]) [facility] [employer] [place]Sco tt [facility] [place]) TELE CONSULT [id number] Call-SKINNY Cartagena 06/02 [facility] [employer] [place]S cott OF Fam [facility] [place]) [facility] [employer] ([place]Sco tt [facility] [place]) TELE CONSULT [id number] SKINNY Mclean 06/16 [facility] [employer] ([place])(S cott OF Fam Res [place] [facility] [employer] ([place]Sco tt [facility] [place]) OUTPATIENT [id number] [phone] pain left side hip radiati ng to the leg NOAH NOONAN 09/29 Released w/o Limitations [address] [place] [address] [facility] ([place])(S cott [facility] [place]) [address] [place] [address] [employer] ([place]Sco tt [facility] [place]) TELE CONSULT [id number] Med Refill SKINNY GODWIN 10/04 [facility] Medical [facility] [employer] ([place])(S cott [facility] [place]) [facility] Medical [facility] [employer] ([place])(Fam shahbaz Practice Non-GME FHI1) OUTPATIENT [id number] LOWER BACK PAIN WOODYGRAHAM 10/05 Released w/o Limitations [address] [place] [address] [employer] ([place])(F amily Practic e Non-GME FHI1) [facility] Medical [facility] ([place])(Sco tt [facility] [place]) OUTPATIENT [id number] f/u back pain SKINNY GODWIN 10/07 Released w/o Limitations [address] [place] [address] [employer] ([place])(S cott [facility] [place]) [address] [place] [address] [employer] ([place])(Sco tt [facility] [place]) TELE CONSULT [id number] Med SKINNY Mejia 01/01 [facility] Medical [facility] [employer] ([place])(S cott [facility] [place]) [facility] Medical [facility] [employer] ([place]Sco tt [facility] [place]) TELE CONSULT [id number] Med Refill SKINNY GODWIN 01/18 [facility] [employer] ([place])(S cott [facility] [place]) [facility] Medical [facility] [employer] ([place]Sco tt [facility] [place]) OUTPATIENT [id number] f/u DM [phone] SKINNY GODWIN 02/05 Released w/o Limitations [facility] Medical [facility] [employer] ([place])(S cott [facility] [place]) [facility] Medical [facility] [employer] ([place]Sco tt [facility]m Blue) OUTPATIENT [id number] F/U NOBLE LOPEZ ESTEBAN QUINTERO Betzaida 03/29 Released w/o Limitations [address] [place] [address] [employer] ([place])(S cott OF [facility] Tm [place]) [address] [place] [address] [employer] ([place])(Sco tt [facility] [place]) TELE CONSULT [id number] Medicat ion Renewal DONELL CUEVAS 05/[address] [place] [address] [employer] [facility] [place] [facility] [place]) [address] [place] [address] [employer] [facility] [place]Sco [facility] [place]) TELE CONSULT [id number] Medicat ion Request DONELL CUEVAS 07/[address] [place] [address] [facility] [place] [facility]) [address] [place] [address] [employer] [facility] [place] [place]) OUTPATIENT [id number] growth on upper back, tender - CHRIS JOHNS 09/12 Released w/o Limitations [address] [place] [address] [employer] [facility] [place] [facility] F[facility] [place]) [address] [place] [address] [employer] [facility] [place]Sco [facility] [place]) OUTPATIENT [id number] MINOR PROCEDU RES-sha ve biopsy X2 CICI SENA 09/18 Released w/o Limitations [address] [place] [address] [employer] ([place]S cott [facility] [place]) [address] [place] [address] [employer] [facility] [place] [place]) TELE CONSULT [id number] F/U Biopsy Results ... CICI SENA 09/[address] [place] [address] [employer] [facility] [place] [facility] [place]) [address] [place] [address] [employer] [facility] [place]Sco [facility] [place] [place]) OUTPATIENT [id number] Suture PEPITO HUI 09/27 Released w/o Limitations [address] [place] [address] [employer] ([place]S cott [facility] [place]) [address] [place] [address] [employer] [facility] [place] [place] [place]) TELE CONSULT [id number] Medicat ion Request DONELL CUEVAS 09/[address] [place] [address] [facility] [employer] ([place])(S cott [facility] [place]) [address] [place] [address] [facility] [employer] ([place])(Sco tt [facility] [place]) TELE CONSULT [id number] biopsy result CICI SENA 09/[address] [place] [address] [facility] [employer] ([place])(S cott [facility] [place]) [address] [place] [address] [facility] [employer] ([place])(Sco tt [facility] [place]) OUTPATIENT [id number] fu for diabete s....[phone] DONELL CUEVAS 10/08 Released w/o Limitations [address] [place] [address] [employer] ([place])(S cott [facility] [place]) [address] [place] [address] [facility] ([place])([employer]) OUTPATIENT [id number] SKIN NEOPLAS M BASAL CELL CARCINO MA ARM per NEGRO Gordon 10/09 Released w/o Limitations [address] [place] [address] [employer] KENDALLB ([place])(D ermatol ogy) [address] [place] [address] [employer] KENDALLB ([place])([employer]) OUTPATIENT [id number] swollen incisio n on forearm NEGRO MUELLER 10/17 Released w/o Limitations [address] [place] [address] [employer]hael SALCIDO ([place])(D ermatol ogy) [address] [place] [address] [employer] KENDALLB ([place])([employer]) OUTPATIENT [id number] Suture removal NEGRO MUELLER 10/22 Released w/o Limitations [address] [place] [address] [employer] SALCIDO ([place])(D ermatol ogy) [address] [place] [address] [employer]hael KENDALLB ([place])(Sco tt [facility] T[facility] Blue) TELE CONSULT [id number] Medicat ion Request DONELL CUEVAS 12/[address] [place] [address] [employer]hael KENDALLB ([place])(S cott [facility] Tm Blue) [address] [place] [address] Raphael KENDALLB ([place])(Sco tt [facility] Tm Blue) TELE CONSULT [id number] [facility] Room DONELL CUEVAS 01/[address] [place] [address] [employer]hael KENDALLB ([place])(S cott [facility] T[facility]) [address] [place] [address] [facility] KENDALLB ([place])(Sco tt [facility] Tm Blue) OUTPATIENT [id number] diabete s f/u/dis cuss labs/er low sugar visit ESTEBAN QUINTERO 01/29 Released w/o Limitations [employer] ([place])(S cott [facility] Tm Blue) [employer] ([place])(Occ upational Therapy) OUTPATIENT [id number] JOINT INSTABI LITY [facility] HELDERLEONILA 02/05 Released w/o Limitations [employer] ([place])(O ccupati onal Therapy ) [employer] ([place])(Occ upational Therapy) OUTPATIENT [id number] JEFFREY SCHUSTER 02/08 Released w/o Limitations [employer] ([place])(O ccupati onal Therapy ) [facility] [employer] ([place])(Occ upational Therapy) OUTPATIENT [id number] ESTRELLITA GARCIA 02/11 Released w/o Limitations [employer] ([place])(O ccupati onal Therapy ) [facility] [employer] ([place])(Occ upational Therapy) OUTPATIENT [id number] LEONILA PENDLETON 02/13 Released w/o Limitations [employer] ([place])(O ccupati onal Therapy ) [facility] [employer] ([place])(Occ upational Therapy) OUTPATIENT [id number] ESTRELLITA GARCIA 02/15 Released w/o Limitations [employer] ([place])(O ccupati onal Therapy ) [facility] [employer] ([place])(Phy sical Therapy) OUTPATIENT [id number] JEFFREY SCHUSTER 02/18 Released w/o Limitations [employer] ([place])(P hysical Therapy ) [employer] ([place])(Occ upational Therapy) OUTPATIENT [id number] JEFFREY SCHUSTER 02/20 Released w/o Limitations [employer] ([place])(O ccupati onal Therapy ) [employer] ([place])(Occ upational Therapy) OUTPATIENT [id number] JUANITO KASPER 02/22 Released w/o Limitations [facility] [employer] ([place])(O ccupati onal Therapy ) [address] [place] [address] [employer] ([place])([employer]) OUTPATIENT [id number] 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 R NEGRO MUELLER 02/25 Released w/o Limitations [facility] [employer] ([place])(D ermatol ogy) [address] [place] [address] [employer] ([place])(Occ upational Therapy) OUTPATIENT [id number] JEFFREY SCHUSTER 02/25 Released w/o Limitations [facility] [employer] ([place])(O ccupati onal Therapy ) [address] [place] [address] [employer] ([place])(Occ upational Therapy) OUTPATIENT [id number] LEONILA PENDLETON L 03/19 Released w/o Limitations [facility] [employer] ([place])(O ccupati onal Therapy ) [address] [place] [address] [employer] B ([place])(Sco tt [facility] Tm Blue) TELE CONSULT [id number] RODOLFO Hughes 03/20[facility] [employer] ([place])(S cott [facility] Tm Blue) [address] [place] [address] [employer] ([place])([employer]) OUTPATIENT [id number] Atypica l squamou s left forearm , excisio n NEGRO MUELLER 03/28 Released w/o Limitations [facility] [employer] ([place])(D ermatol ogy) [address] [place] [address] [employer] B ([place])(Occ upational Therapy) TELE CONSULT [id number] MRI results LEONILA PENDLETON L 04/09[facility] [employer] ([place])(O ccupati onal Therapy ) [address] [place] [address] [employer] ([place])(Sco tt Internal Medicine Tm) OUTPATIENT [id number] suture removal ANNA GUTIERREZ CPT 04/11 Released w/o Limitations [address] [place] [address] [employer] ([place])(S cott Interna l Medicin e Tm) Procedures Combined list of: 1) Procedures from Department of [facility] Affairs facilities [facility], not all VA non-surgical procedures are included; 2) All procedures from the Department of Defense facilities. Procedure Procedure Type Code Date Perfomer Comments Sourc e HANDLING AND/OR CONVEYANCE OF SPECIMEN FOR TRANSFER FROM THE OFFICE TO A LABORATORY 03/28/2009 [facility] OCCUPATIONAL THERAPY RE-EVALUATION 03/19/2009 [facility] HANDLING AND/OR CONVEYANCE OF SPECIMEN FOR TRANSFER FROM THE OFFICE TO A LABORATORY 02/25/2009 [facility] [id number]|2025-01-15 12:50:00|2025-01-15 12:49:00|XMS_ITS|BKG DAEMON|External Medical Summaries|[id number]|" Encounter Summary Created on: January 15, 2025 Shelton Mendoza : 1945 Sex: Male Author Organization [facility] Healthcare Address [address] [place] [address] Care Team Providers Care Tobacco Warehouse Manager Name Role Phone Hernan Posey DO Primary Care Provider [phone]- [phone] Reason for Referral * Diagnostic Imaging (Routine) - Authorized Specialty Diagnoses / Procedures Referred By Contac t Referred To Contact Diagnoses Varicose veins of right lower extremity with inflammation Procedures US Vein Duplex Reflux Right Fabian Dykes MD [address] [address] Phone: tel: fax: [facility] Medical Group Vascular and Vein Surgery at [address] [place] [address] Phone: tel: fax: Referral ID Status Reason Start Date Expiration Date V isits Requested Visits Authorized [id number] Authorized 01/15/2025 02/14/2026 1 1 Encounter Details Date Type Department Care Team (Late st Contact Info) Description 01/15/2025 Orders Only [facility] Medical Group Vascular and Vein Surgery [address] [facility] [facility] [address] [place] [address] Fabian Dykes MD [address] [facility] [address] [place] [address] Varicose veins of right calf (Primary Dx); Venous insufficiency; Varicose veins of right lower extremity with inflammation Social History Tobacco Use Types Packs/Day Years [...] on file 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 Gender Identity Not on file Sexual Orientation Not on file documented as of this encounter Plan of Treatment Scheduled Orders Name Type Priority Associated Diagnoses Orde r Schedule US Vein Duplex Reflux Right Imaging Schedule Routine, Read Routine (OP Routine) Varicose veins of right lower extremity with inflammation Expected: 01/22/2025, Expires: 07/18/2026 documented as of this encounter Visit Diagnoses Diagnosis Varicose veins of right calf- Primary Venous insufficiency Unspecified venous (peripheral) insufficiency Varicose veins of right lower extremity with inflammation documented in this encounter Care Teams Tobacco Warehouse Manager Relationship Specialty Start Date End Date Hernan Posey DO PCP - General Internal Medicine 09/29/18 documented as of this encounter "
--- OUTSIDE RECORDS SUMMARY | 2025-01-15 12:50 | XMS_ITS | Encounter Summary ---
Author Organization [facility] Healthcare Address [address] [place] [address] Care Team Providers Care Assembler Tractor Name Role Phone Hernan Posey DO Primary Care Provider [phone]- [phone] Encounter Details Date Type Department Care Team (Late st Contact Info) Description 01/15/2025 Telephone [facility] Medical Group Vascular and Vein Surgery [address] 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 Call the patient to let him know it was called in. documented in this encounter Plan of Treatment Not on file documented as of this encounter Visit Diagnoses Not on filedocumented in this encounter Care Teams Assembler Tractor Relationship Specialty Start Date End Date Hernan Posey DO PCP - General Internal Medicine 09/29/18 documented as of this encounter
[2025-01-15 20:36] LABS: Prostate Specific Antigen 1.5 ng/mL (< OR = 4.0)
== END 2025-01-15 12:44 | disposition home or self-care (01) ==
PROVIDERS: PCP Internal Medicine; Visit Provider Internal Medicine
DX: Z12.5 Encounter for screening for malignant neoplasm of prostate (principal)
CPT/HCPCS: 36415; 84153; G0103

== ENCOUNTER 2025-02-26 07:32 | Outpatient (CLI) | payer MEDICARE, OTHER, SELFPAY ==
[2025-02-26 18:35] LABS: Creatinine Urine 70.4 mg/dL
[2025-02-26 18:52] LABS: Albumin Level 4.2 g/dL (3.5-5.1); Anion Gap 9 mmol/L (4-12); Blood Urea Nitrogen 33 mg/dL (9-20); Calcium 9.3 mg/dL (8.4-10.2); Carbon Dioxide 27 mmol/L (22-30); Chloride 104 mmol/L (98-107); Estimated Glomerular Filt Rate 47; Glucose 100 mg/dL (65-110); Potassium 4.3 mmol/L (3.4-5.0); Sodium 140 mmol/L (137-145)
[2025-02-26 19:01] LABS: Total Protein Urine Random < 5 mg/dL; Ur Ttl Prot Creatinine Ratio < 0.07 mg/mg (0-0.20)
== END 2025-02-26 07:33 | disposition home or self-care (01) ==
PROVIDERS: PCP Internal Medicine; Visit Provider Internal Medicine Nephrology
DX: E11.22 Type 2 diabetes mellitus with diabetic chronic kidney disease (principal); I12.9 Hypertensive chronic kidney disease with stage 1 through stage 4 chronic kidney disease, or unspecified chronic kidney disease; N18.31 Chronic kidney disease, stage 3a
CPT/HCPCS: 36415; 80069; 82570; 84156

== ENCOUNTER 2025-07-10 08:17 | Outpatient (CLI) | payer MEDICARE, OTHER, SELFPAY ==
--- OUTSIDE RECORDS SUMMARY | 2025-07-10 08:27 | XMS_ITS | Clinical Summary ---
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 Gender Identity Not on file Sexual Orientation Not on file Last Filed Vital Signs Vital Sign Reading Time Taken Comments Blood Pressure 140/62 08/21/2020 2:28 PM MANAGER MSW Pulse 59 08/21/2020 2:28 PM MANAGER MSW Temperature 36.8 C (98.2 F) 08/21/2020 2:28 PM MANAGER MSW Respiratory Rate - - Oxygen Saturation 97% 08/21/2020 2:28 PM MANAGER MSW Inhaled Oxygen Concentration - - Weight - - Height - - Body Mass Index - - Plan of Treatment Health Maintenance Due Date Last Done Comments Hepatitis C Virus (HCV) Screening 1945 Zoster Immunization (1 of 2) 02/15/1994 Medicare Initial AWV G0438 01/28/2010 Respiratory Syncytial Virus (RSV) Immunization (Adult) (1 - 1-dose 75+ series) 02/15/2019 Influenza Immunization (#1) 04/30/202505/31, 06/20/2019, 06/20/2018, Additional history exists SARS-COV-2 Immunization (2024- season) 2025 07/07/2021, 11/21/2020, 10/24/2020 Pneumococcal Immunization (50+ years) Completed 07/15/2016, 09/05/2014 Pneumococcal Immunization Combined Discontinued 07/15/2016, 09/05/2014 DTaP/Tdap/Td Immunization Discontinued 07/09/2019 TdaP Immunization Completed 07/09/2019 Hepatitis B Immunization Aged Out No longer eligible based on patient's age to complete this topic Human Papillomavirus (HPV) Immunization Aged Out No longer eligible based on patient's age to complete this topic Meningococcal Immunization (ACWY) Aged Out No longer eligible based on patient's age to complete this topic Rotavirus Immunization Aged Out No lo nger eligible based on patient's age to complete this topic Insurance MEDICARE [employer] Care Teams Helpdesk Technician Relationship Specialty Start Date End Date Provider, None [place] PCP - General 08/21/20
--- OUTSIDE RECORDS SUMMARY | 2025-07-10 08:27 | XMS_ITS | Clinical Summary ---
Author Organization [facility] Address [address] [place] [address] Care Team Providers Care Direct Care Provider Name Role Phone CassidyjavierHernan crocker Tristen Primary Care Provider Allergies No known [...] 1,000 mcg by mouth daily. Active Fish Oil-Runnells-3 Fatty Acids 300-500 mg Capsule Take by mouth. Active latanoprost (XALATAN) 0.005 % solution 1 Drop daily at bedtime. Active hydrALAZINE (APRESOLINE) 10 mg tablet Take 10 mg by mouth 4 times daily. Active Active Problems No known active problems Encounters Date Type Department Care Team Description 06/27/2025 External Device Data ST[facility] ABSTRACTION Provider, Abstract 06/27/2025 External Device Data [facility] ABSTRACTION Provider, Abstract 06/20/2025 External Device Data [facility] ABSTRACTION Provider, Abstract 06/19/2025 External Device Data [facility] ABSTRACTION Provider, Abstract 05/15/2025 External Device Data [facility] ABSTRACTION Provider, Abstract 05/15/2025 External Device Data [facility] ABSTRACTION Provider, Abstract 04/18/2025 External Device Data [facility] ABSTRACTION Provider, Abstract 04/17/2025 External Device Data STL ABSTRACTION Provider, Abstract [...] on file Legal Sex 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 Gender Identity Not on file Sexual Orientation Not on file Last Filed Vital Signs Vital Sign Reading Time Taken Comments Blood Pressure 125/63 10/02/2024 11:29 AM APARTMENT MAINTENANCE SUPERVISOR Pulse 59 10/02/2024 11:29 AM APARTMENT MAINTENANCE SUPERVISOR Temperature 36.6 C (97.9 F) 10/02/2024 11:29 AM APARTMENT MAINTENANCE SUPERVISOR Respiratory Rate 15 10/02/2024 11:29 AM APARTMENT MAINTENANCE SUPERVISOR Oxygen Saturation 93% 10/02/2024 11:29 AM APARTMENT MAINTENANCE SUPERVISOR Inhaled Oxygen Concentration - - Weight 85.5 kg (188 lb 9.6 oz) 10/02/2024 11:29 AM APARTMENT MAINTENANCE SUPERVISOR Height 182.9 cm (6') 10/28/2022 10:21 AM APARTMENT MAINTENANCE SUPERVISOR Body Mass Index 25.58 10/28/2022 10:21 AM APARTMENT MAINTENANCE SUPERVISOR Plan of Treatment Upcoming Encounters Date Type Department Care Team (Late st Contact Info) Description 10/02/2025 11:30 AM APARTMENT MAINTENANCE SUPERVISOR Office Visit [facility] Oncology and Hematology - [place] [address] [facility] [address] [place] [address] Samir Fritz MD [address] [facility] [address] [place] [address] Health Maintenance Due Date Last [...] 01/04/2020, Additional history exists INFLUENZA VACCINE (#1) 2025 DIABETES HBA1C Q 6 MONTHS 04/08/20252024, 07/11/2024, 03/15/2024, Additional history exists Insurance MEDICARE PART A AND B [employer] Care Teams Direct Care Provider Relationship Specialty Start Date End Date Hernan Posey DO [address] [facility] [address] [place] [address] PCP - General Internal Medicine 10/28/22
[2025-07-10 18:54] LABS: Hemoglobin A1C 6.8 % (<5.7)
[2025-07-10 18:57] LABS: Cholesterol 114 mg/dL (0-200); HDL Direct 35 mg/dL; Triglycerides 91 mg/dL (<150)
[2025-07-10 19:08] LABS: Hematocrit 41.3 % (42.0-52.0); Hemoglobin 13.0 g/dL (14.0-18.0); Immature Granulocyte Percent A 0.2 % (0-0.5); Lymphocytes Absolute Auto 2.19 K/mm3 (0.9-3.2); Mean Corpuscular HGB Conc 31.5 g/dl (32-36); Mean Corpuscular Hemoglobin 31.0 pg (26-34); Mean Corpuscular Volume 98.6 fl (80-100); Nucleated Red Blood Cells Absolute Auto 0.000 K/mm3 (0.0-0.012); Nucleated Red Blood Cells Perc 0.0 % (0.0-0.2); Platelet Count Result 163 k/mm3 (150-375); Red Blood Count 4.19 M/mm3 (4.6-6.20); White Blood Count 6.5 K/mm3 (4.5-10.0)
[2025-07-10 19:45] LABS: Thyroid Stimulating Hormone 1.370 uIU/mL (0.465-4.680)
[2025-07-10 20:17] LABS: Vitamin B12 > 1000.0 pg/mL (239-931)
== END 2025-07-10 08:18 | disposition home or self-care (01) ==
PROVIDERS: PCP Internal Medicine; Visit Provider Internal Medicine
DX: I25.10 Atherosclerotic heart disease of native coronary artery without angina pectoris (principal); D64.9 Anemia, unspecified; E11.22 Type 2 diabetes mellitus with diabetic chronic kidney disease; I12.9 Hypertensive chronic kidney disease with stage 1 through stage 4 chronic kidney disease, or unspecified chronic kidney disease; N18.31 Chronic kidney disease, stage 3a
CPT/HCPCS: 36415; 80061; 82306; 82607; 82746; 83036; 84443; 85025